=== PATIENT | male | born 1955 | race Caucasian/White ===

== ENCOUNTER 2016-12-03 11:21 | Observation (INO) | payer OTHER, BC ==
--- NOTE | 2016-12-03 11:25 | ER Document Report ---
ED Medical Screen (RME) - General Stated Complaint: STROKE LIKE SYMPTOMS Time seen by provider: 11:25 Mode of Arrival: Wheelchair Information source: Patient Notes: 61-year-old male tripped over a fence's morning and when he tried to get up he had slurred speech on the right side of his mouth unable to make words, and could not use his right arm leg. The symptoms lasted for 20 minutes and are now resolved. And it is now 11:25 AM so and sending for CT at this time he is in the 3 hour window. I have greeted and performed a rapid initial assessment of this patient. A comprehensive ED assessment, evaluation of the patient, analysis of test results , and completion of the medical decision making process will be contacted by additional ED providers.
--- NOTE | 2016-12-03 11:50 | ER Document Report ---
ED Neuro Symptoms/Deficit - General Stated Complaint: STROKE LIKE SYMPTOMS Mode of Arrival: Wheelchair Information source: Patient TRAVEL OUTSIDE OF THE [place] IN LAST 30 DAYS: No - HPI Patient complains to provider of: Difficulty standing, Difficulty walking, Facial Droop, Speech Impairment - DYSARTHRIA, DENIES APHASIA Onset: Just prior to arrival Awoke with symptoms: No Exact time of onset: 1045 Duration: Gone now - DURATION APPROX. 20 MIN. Quality of pain: No pain Severity: Moderate Context: denies: Insect bite, Tick bite, Falling, Head injury Loss of consciousness: No loss of consciousness Was STROKE ALERT Called: Yes Baseline Cognitive: Alert, oriented X 3 Baseline Gait: Walks w/o assistance Pre-existing weakness: No: Face, General, Hand, Lower extremity, Upper extremity Alert To: Name/Voice Patient Orientation: Person, Place, Time, Events New weakness: RUE, RLE, R facial Decreased ability to stand/walk: Cannot walk Impaired speech/swallowing: Difficult Vision problem/glaucoma: No Associated symptoms: None. denies: Dizzy, Headache, Nausea, Short of breath Similar symptoms previously: No Recently seen / treated by doctor: No Notes: Due to the fact that the patient's neurologic symptoms had completely resolved by the time of his evaluation in the emergency department, he is excluded from consideration for thrombolytic treatment. - Related Data Allergies/Adverse Reactions: Penicillins Allergy (Verified 12/03/16 12:06) Home Medications: Current Home Medications No Home Medications 12/03/16 [History] Past Medical History - General Information source: Patient - Social History Smoking Status: Former Smoker Cigarette use (# per day): No Chew tobacco use (# tins/day): No Frequency of alcohol use: Rare Drug Abuse: None Lives with: Family Family History: None Patient has suicidal ideation: No Patient has homicidal ideation: No - Past Medical History Cardiac Medical History: Reports: None Pulmonary Medical History: Reports: None EENT Medical History: Reports: None Neurological Medical History: Reports: None Endocrine Medical History: Reports: None Renal/ Medical History: Reports: None Malignancy Medical History: Reports None GI Medical History: Reports: None Musculoskeltal Medical History: Reports None Psychiatric Medical History: Reports: None Past Surgical History: Reports: Hx Orthopedic Surgery Review of Systems - Review of Systems Constitutional: No symptoms reported EENT: No symptoms reported Cardiovascular: No symptoms reported Respiratory: No symptoms reported Gastrointestinal: No symptoms reported Genitourinary: No symptoms reported Musculoskeletal: No symptoms reported Skin: No symptoms reported Neurological/Psychological: See HPI Physical Exam - Vital signs Interpretation: Hypertensive. No: Tachycardic, Tachypneic - General General appearance: Appears well, Alert In distress: None - HEENT Head: Normocephalic Eyes: Normal Conjunctiva: Normal Ears: Normal Nasal: Normal Mouth/Lips: Normal Mucous membranes: Normal Pharynx: Normal Neck: Normal. No: Carotid bruit - Respiratory Respiratory status: No respiratory distress Breath sounds: Normal - Cardiovascular Rhythm: Regular Heart sounds: Normal auscultation Murmur: No - Abdominal Inspection: Normal Distension: No distension Bowel sounds: Normal - Back Back: Normal - Extremities General upper extremity: Normal inspection General lower extremity: Normal inspection - Neurological Neuro grossly intact: Yes Cognition: Normal Orientation: AAOx4 - Psychological Associated symptoms: Normal affect, Normal mood - Skin Skin Temperature: Warm Skin Moisture: Dry Skin Color: Normal Skin Turgor: Elastic Course - Laboratory Result Diagrams: 12/03/16 11:58 12/03/16 11:58 - Diagnostic Test Radiology reviewed: Image reviewed, Reports reviewed - EKG Interpretation by Me EKG shows normal: Sinus rhythm, [place], Intervals, QRS Complexes. abnormal: ST-T Waves - ANT. T ABNLS, NS Rate: Normal Rhythm: NSR - Consults DR. PETERSON Time consulted: 12:42 Reason for consultation: 12/03/16 12:45 AGREES WITH OBSERVATION - TELEMETRY Consulted provider: will come to ER Discharge - Discharge Clinical Impression: TIA (transient ischemic attack) Qualifiers: Transient cerebral ischemia type: unspecified Qualified Code(s): G45.9 - Transient cerebral ischemic attack, unspecified Disposition: ADMITTED OBSERVATION Admitting Provider: Hospitalist Unit Admitted: Telemetry
[2016-12-03 12:16] LABS: ABSOLUTE BASOPHILS # (AUTO) 0.1 10^3/uL (0.0-0.2); ABSOLUTE EOSINOPHILS # (AUTO) 0.1 10^3/uL (0.0-0.6); ABSOLUTE LYMPHOCYTES (AUTO) 1.4 10^3/uL (0.5-4.7); ABSOLUTE MONOCYTES (AUTO) 0.5 10^3/uL (0.1-1.4); BASOPHILS % (AUTO) 1.2 % (0-2); EOSINOPHILS % (AUTO) 1.7 % (0-6); HEMATOCRIT 51.7 % (37.9-51.0); HEMOGLOBIN 16.6 g/dL (13.5-17.0); HGB HCT DIFFERENCE -1.9; LYMPHOCYTES % (AUTO) 19.8 % (13-45); MEAN CORPUSCULAR HEMOGLOBIN 30.8 pg (27.0-33.4); MEAN CORPUSCULAR HGB CONC 32.1 g/dL (32.0-36.0); MEAN CORPUSCULAR VOLUME 96 fl (80-97); MONOCYTES % (AUTO) 6.9 % (3-13); RED BLOOD COUNT 5.38 10^6/uL (4.35-5.55); SEGMENTED NEUTROPHILS % (AUTO) 70.4 % (42-78); WHITE BLOOD COUNT 7.1 10^3/uL (4.0-10.5)
[2016-12-03 12:20] LABS: PROTHROMBIN TIME 12.8 SEC (11.4-15.4)
[2016-12-03 12:21] LABS: PARTIAL THROMBOPLASTIN TIME 26.3 SEC (23.5-35.8)
[2016-12-03 12:32] LABS: ALANINE AMINOTRANSFERASE 52 U/L (21-72); ALBUMIN 3.5 g/dL (3.5-5.0); ALKALINE PHOSPHATASE 60 U/L (38-126); ANION GAP 8 (5-19); ASPARTATE AMINO TRANSFERASE 28 U/L (17-59); BILIRUBIN,TOTAL 0.5 mg/dL (0.2-1.3); BLOOD UREA NITROGEN 12 mg/dL (7-20); CALCIUM 8.9 mg/dL (8.4-10.2); CARBON DIOXIDE 34 mmol/L (22-30); CHLORIDE 102 mmol/L (98-107); CREATINE KINASE 62 U/L (55-170); CREATININE RESULT 0.71 mg/dL (0.52-1.25); GLUCOSE 101 mg/dL (75-110); POTASSIUM 4.3 mmol/L (3.6-5.0); SODIUM 143.6 mmol/L (137-145); TOTAL PROTEIN 6.1 g/dL (6.3-8.2)
[2016-12-03 12:42] LABS: CREATINE KINASE MB 2.06 ng/mL (<4.55); TROPONIN I 0.027 ng/mL
[2016-12-03] MEDS ORDERED: LISINOPRIL 10 MG TABLET PO ONE (12:46)
[2016-12-03] MEDS ORDERED: ASPIRIN 81 MG TABLET, CHEWABLE PO ONE (12:47)
[2016-12-03] MEDS ORDERED: NITROGLYCERIN 0.4 MG/TAB 25 TAB/BOTTLE SL PRN (13:36)
[2016-12-03] MEDS ORDERED: HYDRALAZINE HCL INJ/PF 20 MG/1 ML SDV IV PRN (13:57)
[2016-12-03] MEDS ORDERED: DOCUSATE SODIUM 100 MG CAPSULE PO PRN (14:01)
[2016-12-03] MEDS ORDERED: ONDANSETRON 4 MG TAB.RAPDIS PO PRN (14:01)
[2016-12-03] MEDS ORDERED: OXYCODONE-ACETAMINOPHEN 5-325 MG TABLET PO PRN (14:03)
[2016-12-03] MEDS ORDERED: ACETAMINOPHEN 325 MG TABLET PO PRN (14:03)
[2016-12-03 14:37] LABS: APPEARANCE,URINE CLEAR; BILIRUBIN,URINE NEGATIVE (NEGATIVE); GLUCOSE, URINE NEGATIVE (NEGATIVE); KETONES,URINE NEGATIVE (NEGATIVE); LEUKOCYTE ESTERASE,URINE NEGATIVE (NEGATIVE); NITRITE,URINE NEGATIVE (NEGATIVE); PROTEIN,URINE NEGATIVE (NEGATIVE); URINE SPECIFIC GRAVITY 1.015; UROBILINOGEN,URINE NEGATIVE mg/dL (<2.0)
--- NOTE | 2016-12-03 14:38 | HISTORY AND PHYSICAL E ---
History and Physical NAME: ROD PRATHER : 1955 AGE: 61Y ADMITTED: 12/03/2016 ROOM: ED21 CHIEF COMPLAINT: Weakness on the right side and slurred speech. HISTORY OF PRESENT ILLNESS: The patient is a pleasant 61-year-old male who does not have any past medical history of any problems except asthma. History of smoking; he smokes 1 pack a day. No hypertension or diabetes. No previous history of stroke. The patient was brought to the emergency room by his after he suddenly had weakness on the right side, on the right leg and right arm, and slurred speech. The patient does not remember how long it lasted. He also had a fall, but he does not remember he had the weakness and then he fell, or if he fell or had the weakness. He had high blood pressure. In the emergency room, blood pressure was checked; it was 180/113. When he arrived to the emergency room, his symptoms resolved. He also has a headache. He does not have any chest pain or difficulty breathing. He does not have any nausea or vomiting. No tinnitus. No vertigo. No fever. No chills. He has lower limb edema, but it is chronic. According to him, [facility] and he never had any high blood pressure. He was never told that he had any high blood pressure or diabetes. He had a CT scan, which showed a normal CT scan. EKG was normal. Cardiac enzymes were negative. REVIEW OF SYSTEMS: GENERAL: There is no fever. No chills. HEAD: He has a headache. No dizziness. EARS: No tinnitus. No vertigo. NOSE: No discharge from the nose. NECK: No difficulty swallowing. No pain. EYES: No redness or pain. No problems with the vision. CARDIOVASCULAR: No cough. No wheezing. No hemoptysis. No shortness of breath. RESPIRATORY: No cough. No chest pain. GASTROINTESTINAL: No nausea. No vomiting. No diarrhea. GENITOURINARY: No urgency. No frequency. No dysuria. No hematuria. ENDOCRINE: No polyuria, polyphagia, polydipsia. NEUROLOGIC: No seizures. PSYCHIATRIC: No depression. PAST MEDICAL HISTORY: Asthma. PAST SURGICAL HISTORY: None. MEDICATIONS: He is not taking any medications at home. ALLERGIES: He is allergic to PENICILLIN. SOCIAL HISTORY: The patient is . They have a son. He lives with his . 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 He has smoked 1 pack a day for 40 years. He used to be a heavy drinker, but he quit 20 years ago. No illicit drug use. FAMILY HISTORY: Congestive heart failure in his father. PHYSICAL EXAMINATION: VITAL SIGNS: His blood pressure is 171/109, saturation is 90% on 2 L, heart rate is 102, temperature is 98.4. GENERAL: The patient appears well, not in distress. HEENT: Head: Normocephalic, atraumatic. Eyes: Pupils round, reactive to light and accommodation bilaterally, conjunctivae clear, no icterus, extraocular movements intact. Mucous membranes are moist. Nose: No discharge from the nose. Ears: Tympanic membranes intact bilaterally, no discharge from the ears. NECK: Trachea is midline. No thyromegaly. RESPIRATORY: Inspection of chest: Symmetrical movement, no deformity. Lungs: Clear to auscultation bilaterally, no wheezing, no crackles, good air entry bilaterally. CARDIOVASCULAR: Regular rate and rhythm. No murmur. No gallop. He has +1 edema. ABDOMEN: Soft and nontender. No guarding. Bowel sounds are normal. Negative Hamlin's sign. RECTAL: Deferred. GENITOURINARY: Deferred. EXTREMITIES: There is +1 to +2 edema. No cyanosis. No clubbing. MUSCULOSKELETAL: No joint deformity. No swelling. VASCULAR: Normal peripheral pulses. NEUROLOGIC: Awake, alert to person, place, and time. Normal speech. Cranial nerves grossly intact. Strength is 5/5 in all extremities. Tactile sensation intact in all extremities. SKIN: No rash. PSYCHIATRIC: Normal affect. HEMATOLOGIC/LYMPHOCYTIC: No lymphadenopathy. No easy bruising. No ecchymosis. DIAGNOSTIC DATA: Labs: White blood count 7.1, hemoglobin 16, hematocrit 51. INR is 0.9. Sodium 143, potassium 4.3, carbon dioxide 34, creatinine 0.7. CT scan of the head was normal. Chest x-ray was unremarkable. EKG was normal. ER COURSE: The patient received aspirin 325 mg as well as he also got Lisinopril 10 mg x1 dose. ASSESSMENT AND PLAN: The patient is a 61-year-old male who has a past medical history of smoking. He does not have any past medical history of diabetes or hypertension. The patient came to the emergency room with a TIA/CVA symptoms as well as malignant hypertension. 1. TIA/CVA: The symptoms resolved. 2. Right-sided weakness: Resolved. 3. Malignant hypertension. 4. Morbid obesity. 5. Tobacco abuse. 6. History of alcohol abuse in the past. 7. Morbid obesity. 8. Lower lymphedema. PLAN: 1. The patient will be admitted to telemetry. 2. Will get MRI of the brain to rule out stroke, carotid ultrasound, echocardiogram, 3 sets of cardiac enzymes, fasting lipid profile, urine protein-creatinine ratio, urinalysis. 3. Medication srinivasan, the patient received Lisinopril in the emergency room. Blood pressure is still high. Will start him on Toprol XL 25 mg p.o. daily, hydralazine p.r.n. for a systolic more than 180, aspirin 325 mg p.o. daily. 4. Physical therapy evaluation, occupational therapy evaluation. 5. Processing Mgr consult. 6. DVT prophylaxis, GI prophylaxis. CODE STATUS: The patient is a FULL CODE. TIME SPENT: One hour. DICTATING PHYSICIAN: CARSON PETERSON M.D. [id number] PHY#: [id number] ID: [id number] JOB#: [id number] ACCT: [id number] cc:CARSON PETERSON M.D. > MTDD
--- NOTE | 2016-12-03 15:15 | EKG REPORT ---
SEVERITY:- ABNORMAL ECG - SINUS RHYTHM NONSPECIFIC T ABNORMALITIES, ANTERIOR LEADS : Confirmed by: Carlotta Klein MD 03-Dec-2016 15:14:32
[2016-12-03] MEDS ORDERED: LANSOPRAZOLE 30 MG TAB.RAP.DR PO ONE (16:00)
[2016-12-03] MEDS ORDERED: METOPROLOL SUCCINATE 25 MG TAB.SR.24H PO ONE (16:00)
--- NOTE | 2016-12-03 16:44 | XCELERA REPORT ---
[address] [address] Transthoracic Echocardiogram Report Name: ROD PRATHER Age: 61 yrs Gender: Male : 1955 Patient Status: Inpatient Patient Location: \S\[facility]\S\A Study Date: 12/03/2016 02:02 PM Height: 74 in Weight: 280 lb BSA: 2.5 m2 Procedure: A complete two-dimensional transthoracic echocardiogram was performed (2D, M-mode, spectral and color flow Doppler). The study was technically difficult with many images being suboptimal in quality. Reason For Study: CHF. TIA/CVA Ordering Physician: CARSON PETERSON Performed By: Sonny Alvarez Interpretation Summary The study was technically difficult with many images being suboptimal in quality. Left ventricular systolic function is borderline reduced. There is mild concentric left ventricular hypertrophy. The left ventricle is grossly normal size. Doppler measurements suggest pseudonormalized left ventricular relaxation, which is associated with grade II/IV or mild to moderate diastolic dysfunction Wall motion cannot be accurately commented on, but no definite regional wall motion abnormalities noted. The right ventricle appears to be hypertrophied The right ventricle is mildly dilated. The right ventricular systolic function is normal. The right atrium is mild to moderately dilated. The left atrium is moderately dilated. There is no mitral valve stenosis. There is a mild amount of mitral regurgitation There is no aortic valve stenosis No aortic regurgitation is present. There is a trace to mild amount of tricuspid regurgitation Right ventricular systolic pressure is estimated to be elevated at 40- 50mmHg. There is mild to moderate pulmonary hypertension by echo The aortic root is not well visualized. The inferior vena cava appeared normal and decreased > 50% with respiration (RAP 5-10 mmHg) There is no pericardial effusion. MMode/2D Measurements \T\ Calculations RVDd: 3.7 cm LVIDd: 6.0 cm FS: 20.1 % Ao root diam: 4.1 cm IVSd: 1.5 cm LVIDs: 4.8 cm EDV(Teich): 179.5 ml LVPWd: 1.4 cm ESV(Teich): 106.9 ml Ao root area: 13.3 cm2 EF(Teich): 40.5 % LA dimension: 5.0 cm Doppler Measurements \T\ Calculations MV E max lisa: MV P1/2t max lisa: Ao V2 max: LV V1 max P.2 cm/sec 64.7 cm/sec 107.0 cm/sec 2.5 mmHg MV A max lisa: MV P1/2t: 49.2 msec Ao max PG: LV V1 max: 95.8 cm/sec 4.6 mmHg 78.5 cm/sec MV E/A: 0.67 MVA(P1/2t): 4.5 cm2 MV dec slope: 384.8 cm/sec2 MV dec time: 0.17 sec PA V2 max: PI end-d lisa: TR max lias: RAP systole: 64.7 cm/sec 192.9 cm/sec 302.7 cm/sec 10.0 mmHg PA max PG: TR max P.7 mmHg 36.6 mmHg RVSP(TR): 46.6 mmHg Left Ventricle The left ventricle is grossly normal size. There is mild concentric left ventricular hypertrophy. Left ventricular systolic function is borderline reduced. Doppler measurements suggest pseudonormalized left ventricular relaxation, which is associated with grade II/IV or mild to moderate diastolic dysfunction. Wall motion cannot be accurately commented on, but no definite regional wall motion abnormalities noted. Right Ventricle The right ventricle is mildly dilated. The right ventricle appears to be hypertrophied. The right ventricular systolic function is normal. Atria The right atrium is mild to moderately dilated. The left atrium is moderately dilated. Interarterial septum not well visualized and not well dopplered. Cannot comment on ASD/PFO presence. Mitral Valve The mitral valve leaflets are sclerotic, but show no functional abnormalities. There is no mitral valve stenosis. There is a mild amount of mitral regurgitation. Aortic Valve The aortic valve is grossly normal. There is no aortic valve stenosis. No aortic regurgitation is present. Tricuspid Valve The tricuspid valve is not well visualized, but is grossly normal. There is no tricuspid stenosis. There is a trace to mild amount of tricuspid regurgitation. Right ventricular systolic pressure is estimated to be elevated at 40-50mmHg. There is mild to moderate pulmonary hypertension by echo. Pulmonic Valve The pulmonic valve is not well visualized. Great Vessels The aortic root is not well visualized. The inferior vena cava appeared normal and decreased > 50% with respiration (RAP 5-10 mmHg). Effusions There is no pericardial effusion. : CARSON PETERSON > Erin Garland
[2016-12-03 19:01] LABS: CHOLESTEROL 153.65 mg/dL (0-200); CREATINE KINASE 70 U/L (55-170); Direct HDL 38 mg/dL (>40); TRIGLYCERIDES 76 mg/dL (<150)
[2016-12-03 19:11] LABS: CREATINE KINASE MB 1.82 ng/mL (<4.55); TROPONIN I 0.034 ng/mL
[2016-12-03 19:12] LABS: DIRECT LDL 111 mg/dL (<100)
[2016-12-03] MEDS ORDERED: ATORVASTATIN CALCIUM 40 MG TABLET PO SCH (22:00)
[2016-12-03] MEDS ORDERED: ZOLPIDEM TARTRATE 5 MG TABLET PO SCH (22:00)
[2016-12-03 22:44] LABS: ARTERIAL BLOOD BASE EXCESS 9.4 mmol/L; ARTERIAL BLOOD O2 SATURATION 92.5 % (94-98)
[2016-12-04 00:58] LABS: CREATINE KINASE MB 1.59 ng/mL (<4.55); TROPONIN I 0.031 ng/mL
--- NOTE | 2016-12-04 07:38 | Progress Note ---
Provider Note Provider Note: 12/03/2016: Late evening, I contacted radiology department concerning timing of patient's scheduled CT angiogram of the chest. Radiology techs stated they had called the floor earlier in the evening, with nurse stating that patient had refused to have the study performed. At 11 PM, I called the patient's floor nurse and had her take her phone to the patient. I was involved in the care of another patient at that time and could not come to the patient's bedside. In layperson's terms, I discussed with patient the importance of proceeding with the CT angiogram of the chest, to rule out blood clots to his lung, which could be fatal if not treated in a timely fashion. I also offered to schedule a different test, the ventilation perfusion scan. Despite attempts at having the patient undergo above testing, he repeatedly refused any further testing, stating he was "tested out." Patient's conversation was lucid and appropriate. I notified patient we would be asking him to sign a refusal of care form. He stated that would be fine. Instructions related to this were given to his nurse.
[2016-12-04 07:55] LABS: CREATINE KINASE MB 1.57 ng/mL (<4.55); TROPONIN I 0.024 ng/mL
[2016-12-04] MEDS ORDERED: FUROSEMIDE 40 MG TABLET PO SCH (08:00)
--- NOTE | 2016-12-04 09:36 | EKG REPORT ---
SEVERITY:- ABNORMAL ECG - SINUS RHYTHM NONSPECIFIC T ABNORMALITIES, ANT-LAT LEADS BORDERLINE PROLONGED QT INTERVAL : Confirmed by: Carlotta Klein MD 04-Dec-2016 09:35:41
[2016-12-04] MEDS ORDERED: LANSOPRAZOLE 30 MG TAB.RAP.DR PO SCH (10:00)
[2016-12-04] MEDS ORDERED: METOPROLOL SUCCINATE 25 MG TAB.SR.24H PO SCH (10:00)
[2016-12-04] MEDS ORDERED: FUROSEMIDE 20 MG TABLET PO SCH (11:00)
[2016-12-04 12:06] VITALS: BP 163/80
--- NOTE | 2016-12-04 12:13 | DISCHARGE SUMMARY E ---
Discharge Summary NAME: ROD PRATHER : 1955 AGE: 61Y ADMITTED: 12/03/2016 DISCHARGED: 12/04/2016 ADMISSION DIAGNOSES: 1. TIA/CVA, symptoms resolved. 2. Right-side weakness, resolved. 3. Malignant hypertension. 4. Morbid obesity. 5. Tobacco abuse. 6. History of alcohol abuse in the past. 7. Lower edema. DISCHARGE DIAGNOSES: 1. TIA, symptoms resolved. 2. Right-side weakness, resolved. 3. Malignant hypertension, controlled. 4. Acute hypoxic respiratory failure, probably from obstructive sleep apnea. 5. Underlying COPD. 6. Tobacco abuse. 7. History of alcohol abuse in the past. 8. Acute on chronic diastolic congestive heart failure. 9. Morbid obesity. IMAGING: CT scan of the head was normal. Echocardiogram: Normal ejection fraction, but he had grade-2 diastolic heart failure, carotid artery minimal stenosis, coronary artery disease. A jugular ultrasound showed mild carotid artery disease. The patient refused chest CTA. He refused also MRI of the brain. LABORATORY: ABGs showed he had a pCO2 of 66. He had a respiratory acidosis. HOSPITAL COURSE: The patient is a pleasant 61-year-old male who has a past medical history of smoking and drinking in the past, but he was never diagnosed with hypertension or diabetes. He is morbidly obese. He came to the emergency room because of weakness in the right side of the body associated with high blood pressure at home at 180/106, and the patient came to the emergency room. His symptoms resolved in the ER; however, his blood pressure was very high, it was 182/113. He had a CT scan of the chest which was negative, and 3 sets of cardiac enzymes were negative. The patient was started on blood pressure medication and a statin. He was started on Toprol XL 25 mg daily, and the patient had edema in his lower extremities, and I started him on Lasix also. Cardiology was consulted, and the patient had an echocardiogram which showed grade-2 systolic failure but normal ejection fraction. He had a carotid ultrasound of the neck which showed mild coronary artery disease. He had a mild elevation of cholesterol LDL. He had ABG which showed pH was 7.[address] angiogram was ordered, but the patient refused, as well as also MRI of the brain patient refused because of claustrophobia. I offered him Ativan, but he still insisted not to do it. The patient was walked today, and he qualified for oxygen. He is hypoxic, his room air saturation dropped to 87, with walking to 84. He had some symptoms of obstructive sleep apnea, he is at least snoring, and he was evaluated by Dr. Garland and considering outpatient sleeping study. He will be discharged home today on aspirin and statin and Toprol, as well as oxygen and Lasix. He is not on any medication at home. The patient is stable to be discharged home today. PHYSICAL EXAMINATION: GENERAL: Upon discharge, the patient is lying in bed, comfortable, not in distress, obese. VITAL SIGNS: Blood pressure 127/78, heart rate 70, temperature 97.9, respiratory rate is 24, saturation is 87% room air at rest, when walking at 84%. On 2 liters, he is saturating walking 94% and at rest 96. HEAD: Normocephalic, atraumatic. Pupils are equal, round, reactive to light and accommodation bilaterally. Extraocular movements intact. Conjunctiva is clear. EARS: Tympanic membranes intact bilaterally. NOSE: No deformity. No discharge. NECK: Supple. No increased JVD. No thyromegaly. No lymphadenopathy. CARDIOVASCULAR: Normal S1, S2. Regular rate and rhythm. Edema +2. RESPIRATORY: No deformity. Lungs clear. No wheezing. ABDOMEN: Soft. Nontender. No organomegaly. Bowel sounds active. MUSCULOSKELETAL: No edema. NEUROLOGICAL: Awake, alert. SKIN: No rash. LABORATORY: White blood count 7.1. Sodium 143, potassium 4.3, creatinine 0.7. Cholesterol is elevated. DISPOSITION: Discharge the patient home. FOLLOWUP: Follow up with Dr. Garland in 1 to 2 weeks. Assigned to primary care physician and follow with him. Home oxygen at 2 liters per minute, 24 hours. DISCHARGE MEDICATIONS: 1. Metoprolol XL 25 mg p.o. daily. 2. Lasix 20 mg p.o. daily. 3. Lipitor 40 mg daily. 4. Aspirin 81 mg daily. DISCHARGE INSTRUCTIONS: I instructed the patient he will need workup for obstructive sleep apnea as an outpatient. The patient is instructed to lose weight and quit smoking. TIME SPENT: I spent more than 40 minutes. DICTATING PHYSICIAN: CARSON PETERSON M.D. [id number] PHY#: [id number] ID: [id number] JOB#: [id number] ACCT: [id number] cc:CARSON PETERSON M.D. >
--- NOTE | 2016-12-04 15:50 | PDOC CONSULTATION ---
Consultation Consult Date: 12/03/16 Attending physician:: ARUN YOUSSEF Consult reason:: CVA, Abnormal Echocardiogram History of Present Illness Admission Date/PCP: 12/03/16 13:20 Patient complains of: CVA History of Present Illness: ROD PRATHER is a 61 year old male who had tripped over a fence's morning and when he tried to get up he had slurred speech on the right side of his mouth unable to make words, and could not use his right arm leg. The symptoms lasted for 20 minutes and are now resolved. Patient subsequently had echocardiogram which was noted to be abnormal. I was therefore asked to evaluate patient. Patient also was noted to be hypoxemic. Patient was seen last night and recommended for him to undergo a CTA of the chest which he subsequently declined. Patient denied any prior history of heart problems but describes history of intermittent palpitations. Patient in the room, she admitted that patient has history of loud intermittent snoring, multiple nocturnal awakening, daytime sleepiness and tiredness. Patient denied any other significant history. He denied any prior history of myocardial infarction, angina, strokes, mini strokes, CHF etc. Past Medical History Cardiac Medical History: Reports: None Pulmonary Medical History: Reports: None EENT Medical History: Reports: None Neurological Medical History: Reports: None Endocrine Medical History: Reports: None Renal/ Medical History: Reports: None Malignancy Medical History: Reports: None GI Medical History: Reports: None Musculoskeltal Medical History: Reports: None Psychiatric Medical History: Reports: None Past Surgical History Past Surgical History: Reports: Orthopedic Surgery Social History Information Source: Patient Lives with: Family Smoking Status: Former Smoker Cigarettes Packs Per Day: 1 Number of Years Smokin Frequency of Alcohol Use: None Hx Recreational Drug Use: No Hx Prescription Drug Abuse: No Family History Family History: None Parental Family History Reviewed: Yes Children Family History Reviewed: Yes Sibling(s) Family History Reviewed.: Yes - Patient denies any family history of sudden cardiac or premature coronary artery disease in the immediate family members. Medication/Allergy Home Medications: Atorvastatin Calcium [Lipitor 40 mg Tablet] 20 mg PO QHS #30 tablet 12/04/16 Furosemide [Lasix 20 mg Tablet] 10 mg PO DAILY #30 tablet 12/04/16 Metoprolol Succinate [Toprol Xl 25 mg Tab.sr] 25 mg PO DAILY #30 tab.sr.24h Allergies/Adverse Reactions: Penicillins Allergy (Verified 12/03/16 12:06) Review of Systems Review of Systems: General: Patient denied any recent fevers or chills. Head: No recent chronic or acute headache. No recent head injury. No chronic or acute dizziness. Eyes: Negative for any recent eye pain, eye discharge, acute vision loss, diplopia. Ears: Negative for any recent ear pain, ear discharge. Nose: Negative for any recent sinus problems, nasal polyps or nasal bleed. Oral: Negative for recent oral pain, oral ulcerations, oral bleeding. Hematologic: Negative for recent abnormal bleeding, bruising, blood clot formation. Lymphatic: Negative for any recent lymphadenopathy, lymphatic malignancy, lymphedema. Endocrine: Negative for any recent polyuria, polydipsia, heat or cold intolerance. Cardiac: Negative for any recent chest pains, patient has shortness of breathon exertion but no PND, orthopnea, sustained syncope, near syncope. Does describe intermittent palpitations Respiratory: Negative for any recent episodes of asthma, wheezing, blood clots in the lungs, hemoptysis. Abdominal: Negative for any recent episode of abdominal pain, recent hematemesis melena, or recent changes in bowel habits. Urogenital: Negative for any recent hematuria, pyuria, renal colic. Musculoskeletal: Negative for any significant acute arthritis or mobility issues. INTERMEDIATE CARD TENDER: Negative for recent symptoms of strokes, mini strokes or seizure disorder, except for TIA/stroke type symptoms on presentation this time. Psychiatric: Negative for recent symptoms of major psychosis, depression or suicidal ideation. Skin: Negative for any significant recent ecchymosis, rash or pruritus.. Physical Exam Vital Signs: Temp Pulse Resp BP Pulse Ox 98.2 F 74 18 161/108 H 90 L 12/03/16 15:48 12/03/16 15:49 12/03/16 15:48 12/03/16 15:49 12/03/16 15:48 Intake & Output 12/02/16 12/03/16 12/04/16 06:59 06:59 06:59 Intake Total 3 Balance 3 Weight 132.6 kg Exam: GENERAL: well-nourished and in no acute distress. Alert and oriented x3 HEAD: Atraumatic, normocephalic. EYES: Pupils equal round and reactive to light, extraocular movements intact, sclera anicteric, conjunctiva are normal. ENT: TMs normal, nares patent, oropharynx clear without exudates. Moist mucous membranes. No oral ulcerations or bleeding gums noted NECK: supple without lymphadenopathy. Trachea is central. No cervical or axillary lymphadenopathy noted. Carotids are 2+, JVD WNL LUNGS: Respiration seems nonlabored, no significant accessory muscle action noted. Breath sounds clear to auscultation bilaterally and equal. No wheezes rales or rhonchi. No significant dullness noted on percussion. CHEST: Palpation of the chest wall shows no significant chest wall tenderness or abnormalities. 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 ABDOMEN: Soft, no significant tenderness appreciated, normoactive bowel sounds. No guarding, no rebound. No rigidity noted . No masses appreciated. EXTREMITIES: Pedal pulses are 1-2+, no calf tenderness noted. No clubbing or cyanosis.trace to 1+ pedal edema noted NEUROLOGICAL: Focused neurological exam showed no significant neurologic deficit. Normal speech, no focal weakness appreciated. PSYCH: Normal mood, normal affect. Judgment and insight within normal limits. SKIN: No significant ecchymosis, rash, ulcerations or signs of pruritus noted. MUSCULOSKELETAL EXAM: No significant joint swelling noted. Results Laboratory Results: 12/03/16 12/03/16 13:37 18:20 Triglycerides 76 Cholesterol 153.65 LDL Cholesterol Direct 111 H VLDL Cholesterol 15.0 HDL Cholesterol 38 L Urine Color YELLOW Urine Appearance CLEAR Urine pH 7.0 Ur Specific [place] 1.015 Urine Protein NEGATIVE Urine Glucose (UA) NEGATIVE Urine Ketones NEGATIVE Urine Blood NEGATIVE Urine Nitrite NEGATIVE Ur Leukocyte Esterase NEGATIVE Urine WBC (Auto) 0 Urine RBC (Auto) 0 12/03/16 12/03/16 18:20 18:20 Creatine Kinase 70 CK-MB (CK-2) 1.82 Troponin I 0.034 EKG Comments: Sinus rhythm with nonspecific T inversion V1 to V3. Impressions: Carotid Doppler Study 12/03/16 00:00 IMPRESSION: NO HEMODYNAMICALLY SIGNIFICANT STENOSIS. Chest X-Ray 12/03/16 11:24 IMPRESSION: Obstructive lung disease Minimal left basilar atelectasis Mild cardiomegaly Head CT 12/03/16 11:24 IMPRESSION: Limited study. No acute intracranial changes Assessment & Plan - Diagnosis (1) TIA (transient ischemic attack) Qualifiers: Transient cerebral ischemia type: unspecified Qualified Code(s): G45.9 - Transient cerebral ischemic attack, unspecified Is this a current diagnosis for this admission?: Yes (2) Abnormal electrocardiogram Is this a current diagnosis for this admission?: Yes (3) Abnormal echocardiogram Is this a current diagnosis for this admission?: Yes (4) Respiratory failure Qualifiers: Chronicity: chronic Respiratory failure complication: hypoxia and hypercapnia Qualified Code(s): J96.11 - Chronic respiratory failure with hypoxia; J96.12 - Chronic respiratory failure with hypercapnia Is this a current diagnosis for this admission?: Yes (5) Sleep disorder breathing Is this a current diagnosis for this admission?: Yes - Notes Notes: Transient ischemic attack: This is the diagnosis based on patient's presentation. Exact etiology not clear. Patient does give history of palpitations. Patient could have paroxysmal atrial fibrillation which is these rhythm abnormality to which this patient is felt to be most prone for because of history of obesity and possible underlying sleep apnea syndrome. Have recommended prolonged monitoring as an outpatient once patient is discharged. Abnormal electrocardiogram: Patient has T-wave inversion in anterior precordial lead. Patient without any chest pain. Agree with obtaining cardiac enzymes. Abnormal echocardiogram: This was the reason for consultation. Patient noted to have RV enlargement and pulmonary hypertension. LVEF is felt to be borderline reduced. These findings were discussed with the patient. He was recommended to undergo CTA of the chest which he subsequently declined. Respiratory failure with hypoxemia and hypercapnia: [place] to be chronic. Most likely related to obesity hypoventilation syndrome and possibly sleep apnea syndrome. Patient was advised to undergo CTA of the chest to rule out pulmonary embolism but patient declined. Patient may benefit from empiric anticoagulation for at least a month if not longer. Sleep disorder breathing:This is suspect that based on patient's symptoms of snoring, daytime fatigue and somnolence. Patient also has difficulty falling asleep and staying asleep. Patient has obesity and oropharyngeal exams suggest high probability of underlying sleep apnea syndrome. Have discussed this with the patient. Discussed increased risk of cardiovascular event rate, cerebrovascular accident, cardiac arrhythmias, uncontrolled hypertension etc. as being associated with untreated sleep apnea. Discussed that we'll be happy to schedule this as an outpatient. Patient has been recommended weight loss, sleep hygiene. Patient encouraged to report any further problems. - Time Time Spent: 30 to 50 Minutes - CODE STATUS was discussed, patient remains full code. Surrogate decision-maker patient's . Multiple medical problems were addressed.More than 50% of the time spent coordinating care, discussing management plans with involved caregivers. Management plans discussed with involved personnels. Medical decision making was of moderate complexity.
--- NOTE | 2016-12-04 15:53 | PDOC PROGRESS REPORT ---
Subjective Progress Note for:: 12/04/16 Subjective:: Patient feeling much better. He is demanding to be discharged. He declined to pursue any further evaluation as an inpatient. He had declined to pursue a CTA chest. Patient denied any specific complaints. Rhythm strip shows sinus rhythm Physical Exam Vital Signs: Temp Pulse Resp BP Pulse Ox 98.6 F 68 18 163/80 H 94 12/04/16 12:05 12/04/16 12:05 12/04/16 12:05 12/04/16 12:05 12/04/16 12:05 Intake & Output 12/03/16 12/04/16 12/05/16 06:59 06:59 06:59 Intake Total 159 Balance 159 Weight 132.6 kg Exam: GENERAL: well-nourished and in no acute distress. Alert and oriented x3 HEAD: Atraumatic, normocephalic. EYES: Pupils equal round and reactive to light, extraocular movements intact, sclera anicteric, conjunctiva are normal. ENT: TMs normal, nares patent, oropharynx clear without exudates. Moist mucous membranes. No oral ulcerations or bleeding gums noted NECK: supple without lymphadenopathy. Trachea is central. No cervical or axillary lymphadenopathy noted. Carotids are 2+, JVD WNL LUNGS: Respiration seems nonlabored, no significant accessory muscle action noted. Breath sounds clear to auscultation bilaterally and equal. No wheezes rales or rhonchi. No significant dullness noted on percussion. CHEST: Palpation of the chest wall shows no significant chest wall tenderness or abnormalities. 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 ABDOMEN: Soft, no significant tenderness appreciated, normoactive bowel sounds. No guarding, no rebound. No rigidity noted . No masses appreciated. EXTREMITIES: Pedal pulses are 1-2+, no calf tenderness noted. No clubbing or cyanosis.trace to 1+ pedal edema noted NEUROLOGICAL: Focused neurological exam showed no significant neurologic deficit. Normal speech, no focal weakness appreciated. PSYCH: Normal mood, normal affect. Judgment and insight within normal limits. SKIN: No significant ecchymosis, rash, ulcerations or signs of pruritus noted. MUSCULOSKELETAL EXAM: No significant joint swelling noted. Results Laboratory Results: 12/03/16 12/03/16 18:20 21:30 Carbonic Acid 2.00 H HCO3/H2CO3 Ratio 18:1 ABG pH 7.37 ABG pCO2 66.6 H ABG pO2 67.8 L ABG HCO3 37.8 H ABG O2 Saturation 92.5 L ABG Base Excess 9.4 FiO2 1L Triglycerides 76 Cholesterol 153.65 LDL Cholesterol Direct 111 H VLDL Cholesterol 15.0 HDL Cholesterol 38 L 12/03/16 12/03/16 12/04/16 18:20 18:20 00:22 Creatine Kinase 70 CK-MB (CK-2) 1.82 1.59 Troponin I 0.034 0.031 12/04/16 12/04/16 12/04/16 00:22 06:51 06:51 Creatine Kinase 64 62 CK-MB (CK-2) 1.57 Troponin I 0.024 Impressions: Carotid Doppler Study 12/03/16 00:00 IMPRESSION: NO HEMODYNAMICALLY SIGNIFICANT STENOSIS. Chest X-Ray 12/03/16 11:24 IMPRESSION: Obstructive lung disease Minimal left basilar atelectasis Mild cardiomegaly Head CT 12/03/16 11:24 IMPRESSION: Limited study. No acute intracranial changes Assessment & Plan - Diagnosis (1) TIA (transient ischemic attack) Qualifiers: Transient cerebral ischemia type: unspecified Qualified Code(s): G45.9 - Transient cerebral ischemic attack, unspecified Is this a current diagnosis for this admission?: Yes (2) Abnormal electrocardiogram Is this a current diagnosis for this admission?: Yes (3) Abnormal echocardiogram Is this a current diagnosis for this admission?: Yes (4) Respiratory failure Qualifiers: Chronicity: chronic Respiratory failure complication: hypoxia and hypercapnia Qualified Code(s): J96.11 - Chronic respiratory failure with hypoxia Is this a current diagnosis for this admission?: Yes (5) Sleep disorder breathing Is this a current diagnosis for this admission?: Yes - Notes Notes: As noted above, patient declined to undergo further evaluation and investigation as an inpatient. Patient was informed that he should undergo CTA of the chest to rule out any serious causes of both hypoxemia and abnormal echocardiogram. Patient however insist on being discharged. Discussed with hospitalist. It was felt that we may have to treat this patient on our best suspicion. Recommended close outpatient follow-up, oral anticoagulant, event monitoring as an outpatient, sleep study as an outpatient. Because of hypoxemia , the hospitalist arranging for oxygen therapy to be delivered. Overall prognosis is guarded. Discussed with hospitalist and patient's family members. - Time Time with patient: Greater than 35 minutes - CODE STATUS was discussed, patient remains full code. Surrogate decision-maker unchanged. Multiple medical problems were addressed.More than 50% of the time spent coordinating care, discussing management plans with involved caregivers. Management plans discussed with involved personnels. Medical decision making was of moderate to severe complexity.
== END 2016-12-04 12:50 | disposition home or self-care (01) ==
LOC: ER 11:21 → EH 13:20 → 3S 15:35
PROVIDERS: ADMIT Internal Medicine; ATTEND Internal Medicine
DX: G45.9 Transient cerebral ischemic attack, unspecified (principal); J96.01 Acute respiratory failure with hypoxia; Z72.0 Tobacco use; I10 Essential (primary) hypertension; J44.9 Chronic obstructive pulmonary disease, unspecified; I50.33 Acute on chronic diastolic (congestive) heart failure; F10.21 Alcohol dependence, in remission; E66.01 Morbid (severe) obesity due to excess calories; Z68.37 Body mass index [BMI] 37.0-37.9, adult
CPT/HCPCS: 93005 ×2; 99285; 36415; 82553 ×2; 82803; 82550 ×2; 85025; 85610; 85730; 80053; 81001; 84484 ×2; 80061; 93306; 93880; 71010; 70450; 93010 ×2; G0378 ×2

== ENCOUNTER 2017-04-25 16:27 | Inpatient (IN) | payer OTHER, BC ==
[2017-04-25 17:43] LABS: ABSOLUTE EOSINOPHILS # (AUTO) 0.3 10^3/uL (0.0-0.6); ABSOLUTE LYMPHOCYTES (AUTO) 1.5 10^3/uL (0.5-4.7); ABSOLUTE MONOCYTES (AUTO) 0.6 10^3/uL (0.1-1.4); ABSOLUTE NEUT (AUTO) 5.1 10^3/uL (1.7-8.2); BASOPHILS % (AUTO) 0.4 % (0-2); EOSINOPHILS % (AUTO) 3.4 % (0-6); HEMATOCRIT 54.8 % (37.9-51.0); HEMOGLOBIN 17.1 g/dL (13.5-17.0); HGB HCT DIFFERENCE -3.5; LYMPHOCYTES % (AUTO) 20.4 % (13-45); MEAN CORPUSCULAR HEMOGLOBIN 30.2 pg (27.0-33.4); MEAN CORPUSCULAR HGB CONC 31.1 g/dL (32.0-36.0); MEAN CORPUSCULAR VOLUME 97 fl (80-97); MONOCYTES % (AUTO) 8.2 % (3-13); RED BLOOD COUNT 5.65 10^6/uL (4.35-5.55); RED CELL DISTRIBUTION WIDTH 16.2 % (11.5-14.0); SEGMENTED NEUTROPHILS % (AUTO) 67.6 % (42-78); WHITE BLOOD COUNT 7.6 10^3/uL (4.0-10.5)
[2017-04-25 17:56] LABS: BLOOD UREA NITROGEN 17 mg/dL (7-20); CALCIUM 8.4 mg/dL (8.4-10.2); CHLORIDE 97 mmol/L (98-107); CREATININE RESULT 0.86 mg/dL (0.52-1.25); GLUCOSE 94 mg/dL (75-110); POTASSIUM 4.3 mmol/L (3.6-5.0)
--- NOTE | 2017-04-25 17:59 | RADIOLOGY REPORT (SQ) ---
EXAM DESCRIPTION: CHEST PA/LAT COMPLETED DATE/TIME: 04/25/2017 5:44 pm REASON FOR STUDY: 10, SOB COMPARISON: 12/03/2016 EXAM PARAMETERS: NUMBER OF VIEWS: two views TECHNIQUE: Digital Frontal and Lateral radiographic views of the chest acquired. RADIATION DOSE: NA LIMITATIONS: none FINDINGS: LUNGS AND PLEURA: The lung wills are hyperexpanded. There is mild perihilar and basilar airspace disease new or increased from prior study. No effusions. MEDIASTINUM AND HILAR STRUCTURES: No masses or contour abnormalities. HEART AND VASCULAR STRUCTURES: Stable in appearance. BONES: No acute findings. HARDWARE: None in the chest. OTHER: No other significant finding. IMPRESSION: Perihilar and basilar airspace disease. Changes in the lung bases is most consistent wi th atelectasis. Perihilar infiltrate could be related to a viral illness or congestion. TECHNICAL DOCUMENTATION: JOB ID: [id number] [employer]- All Rights Reserved
[2017-04-25 18:03] LABS: ANION GAP 9 (5-19)
[2017-04-25] MEDS ORDERED: METHYLPREDNISOLONE INJ 125 MG/2 ML SDV IV ONE (18:08)
[2017-04-25 18:11] LABS: TROPONIN I 0.065 ng/mL
[2017-04-25 18:12] LABS: CARBON DIOXIDE 40 mmol/L (22-30)
[2017-04-25] MEDS ORDERED: IPRATROPIUM/ALBUTEROL 0.5-2.5 MG/3 ML AMPUL NEB SCH (18:15)
[2017-04-25] MEDS ORDERED: ASPIRIN 325 MG TABLET PO ONE (18:15)
--- NOTE | 2017-04-25 18:15 | ER Document Report ---
ED Respiratory Problem - General Chief Complaint: Breathing Difficulty Stated Complaint: SHORTNESS OF BREATH Time Seen by Provider: 04/25/17 17:23 Information source: Patient Notes: Patient is a 61-year-old male who presents today from the [place] with some shortness of breath. He states shortness of breath for around the last 2 weeks with increased progression over the last 2 days. He denies any and all chest pain. He states some baseline swelling in the legs that has slightly increased. Patient had a stroke this past November and was only then started on Lasix, blood pressure medications, and cholesterol medications. Patient states he does have a history of asthma when he was a child. He recently quit smoking after a long smoking history. Does not endorse some increased orthopnea. Some coworkers today noticed him short of breath with some "blueness of the fingers". He denies any runny nose, congestion, coughing, or fevers. TRAVEL OUTSIDE OF THE [place] IN LAST 30 DAYS: No - HPI Patient complains to provider of: Short of breath Onset: Other - See above Duration: Continuous Quality of pain: No pain Severity: Moderate Pain Level: 0 Context: Other - See above Short of Breath: Moderate Cough: Nonproductive Sputum amount: None Associated symptoms: Other - See above Similar symptoms previously: Yes Recently seen / treated by doctor: No - Related Data Allergies/Adverse Reactions: Penicillins Allergy (Verified 12/03/16 12:06) Past Medical History - General Information source: Patient - Social History Smoking Status: Former Smoker Cigarette use (# per day): No Chew tobacco use (# tins/day): No Smoking Education Provided: No Frequency of alcohol use: None Drug Abuse: None Family History: None Renal/ Medical History: Denies: Hx Peritoneal Dialysis Past Surgical History: Reports: Hx Orthopedic Surgery Review of Systems - Review of Systems Constitutional: denies: Fever EENT: denies: Eye discharge, Nose discharge Cardiovascular: denies: Chest pain, Palpitations Respiratory: Short of breath. denies: Hurts to breathe, Hemoptysis Gastrointestinal: denies: Vomiting Genitourinary: denies: Dysuria Musculoskeletal: Leg swelling Skin: Other - no hives. denies: Rash Neurological/Psychological: Other - no slurred speech -: Yes All other systems reviewed and negative Physical Exam - Vital signs Vitals: Temp Pulse Resp BP Pulse Ox 98.7 F 70 20 134/77 H 80 L 04/25/17 16:51 04/25/17 16:51 04/25/17 16:51 04/25/17 16:51 04/25/17 16:51 Notes: Reviewed vital signs and nursing note as charted by RN. CONSTITUTIONAL: Alert and oriented and responds appropriately to questions. Well -appearing; well-nourished HEAD: Normocephalic; atraumatic NECK: Supple without meningismus; non-tender; no cervical lymphadenopathy, no masses CARD: Regular rate and rhythm; no murmurs, no clicks, no rubs, no gallops; symmetric distal pulses RESP: Normal chest excursion without splinting. Minimal tachypnea. Patient has some decreased breath sounds bilaterally with some minimal rales at the bases with a slight wheeze to the left upper posterior chest ABD/GI: Normal bowel sounds; non-distended; soft, non-tender BACK: The back appears normal and is non-tender to palpation, there is no CVA tenderness EXT: Normal ROM in all joints; non-tender to palpation; no cyanosis, no effusions, 2-3+ pitting edema bilateral feet and shins SKIN: Normal color for age and race; warm; dry; good turgor; capillary refill < 2 seconds; no acute lesions noted NEURO: Moves all extremities equally; Motor and sensory function intact PSYCH: The patient's mood and manner are appropriate. Grooming and personal hygiene are appropriate. Course - Re-evaluation Re-evalutation: I was able to review the patient out patient evaluation consistent with my history. The EKG at that facility showed a heart rate of 68, normal sinus rhythm, inverted T waves V2 through V5. Given the above history and physical examination, I will obtain a cardiac panel , BNP, x-ray of the chest, and reassess. I believe the risk of pulmonary embolism and aortic dissection to be unlikely at this time. I am concerned about possible congestive heart failure, asthma/COPD exacerbation, or myocardial infarction 04/25/17 18:13 X-ray of the chest as recorded. 04/25/17 18:47 Labs as recorded. Patient still denies any pain to the chest. BNP is elevated. X-ray of the chest shows a possible congestive heart failure picture/ possible pneumonia. Azithromycin and Rocephin has been provided. EKG shows a heart rate of 66, normal sinus rhythm, some right axis deviation, inverted T waves in leads V2 through V5. Her EKG from November 2016 shows inverted T waves V2 through V4 - Vital Signs Vital signs: Temp Pulse Resp BP Pulse Ox 98.7 F 70 20 134/77 H 80 L 04/25/17 16:51 04/25/17 16:51 04/25/17 16:51 04/25/17 16:51 04/25/17 16:51 - Laboratory Result Diagrams: 04/25/17 17:16 04/25/17 17:16 Laboratory results interpreted by me: 04/25/17 04/25/17 04/25/17 17:16 17:16 17:16 RBC 5.65 H Hgb 17.1 H Hct 54.8 H MCHC 31.1 L RDW 16.2 H Sodium 146.0 H Chloride 97 L Carbon Dioxide 40 H* NT-Pro-B Natriuret Pep 2270 H Discharge - Discharge Clinical Impression: Hypoxia, Shortness of breath, Leg edema Congestive heart failure Qualifiers: Congestive heart failure type: unspecified congestive heart failure type Congestive heart failure chronicity: acute on chronic Qualified Code(s): I50.9 - Heart failure, unspecified Condition: Fair Disposition: ADMITTED OBSERVATION Admitting Provider: Hospitalist Unit Admitted: Telemetry
[2017-04-25] MEDS ORDERED: FUROSEMIDE INJ/PF 40 MG/4 ML SDV IV ONE (18:46)
[2017-04-25] MEDS ORDERED: AZITHROMYCIN INJ 500 MG VIAL IV ONE (19:01)
[2017-04-25] MEDS ORDERED: CEFTRIAXONE RTU 1 GM/D5W 50 ML IV ONE (19:01)
[2017-04-25 20:08] LABS: ARTERIAL BLOOD BASE EXCESS 10.3 mmol/L; ARTERIAL BLOOD O2 SATURATION 91.8 % (94-98)
[2017-04-25 20:48] LABS: CREATINE KINASE MB 1.72 ng/mL (<4.55); TROPONIN I 0.063 ng/mL
[2017-04-25] MEDS ORDERED: ACETAMINOPHEN 325 MG TABLET PO PRN (20:51)
[2017-04-25] MEDS ORDERED: ENALAPRILAT DIHYDRATE INJ/PF 1.25 MG/1 ML SDV IV PRN (20:51)
[2017-04-25] MEDS ORDERED: MAG HYDROX/AL HYDROX/SIMETH SUSP 30 ML UDCUP PO PRN (20:51)
[2017-04-25] MEDS ORDERED: NITROGLYCERIN 5 MG (0.2 MG/HR) PATCH.TD24 TD ONE (21:15)
[2017-04-26] MEDS: HEPARIN SOD (PORCINE) 5,000 UNIT/ML 1 ML SYRINGE SUBCUT SCH ×4 (00:14→21:13)
[2017-04-26] MEDS: ATORVASTATIN CALCIUM 20 MG TABLET PO SCH ×2 (00:14→21:12)
[2017-04-26] MEDS: METOPROLOL TARTRATE 25 MG TABLET PO SCH ×3 (00:15→21:12)
--- NOTE | 2017-04-26 00:22 | PDOC H&P ---
History of Present Illness Admission Date/PCP: 04/25/17 20:51 Patient complains of: Shortness of breath History of Present Illness: ROD PRATHER is a 61 year old male with a past medical history of morbid obesity, hypertension, suspected obstructive sleep apnea and venous stasis who had been in his usual state of health until approximately 7 days ago noting excessive the dyspnea with exertion prompting to seek evaluation at the [facility] where he found to be with oxygen saturations in the mid 80s on room air and referred to the ER for evaluation. He is found awake and alert but short of breath requiring supplemental oxygen, a CBC reveals polycythemia and ABG reveals both hypoxia with a PO2 of 66 and a PCO2 of 70 and started on BiPAP. The patient denies medications reducing respiratory drive such as opiates or benzodiazepine or recent change in medication. Past Medical History Cardiac Medical History: Reports: Other - Bilateral lower extremity venous stasis Pulmonary Medical History: Reports: Sleep Apnea Past Surgical History Past Surgical History: Reports: Orthopedic Surgery Social History Information Source: Patient Lives with: Spouse/Significant other Smoking Status: Former Smoker Frequency of Alcohol Use: None Hx Recreational Drug Use: No Hx Prescription Drug Abuse: No - Advance Directive Resuscitation Status: Full Code Family History Family History: None, Hypertension Parental Family History Reviewed: Yes Children Family History Reviewed: Yes Sibling(s) Family History Reviewed.: Yes Medication/Allergy Home Medications: Aspirin [Aspirin 81 mg Chewable Tablet] 81 mg PO DAILY 04/25/17 Atorvastatin Calcium [Lipitor 20 mg Tablet] 20 mg PO QHS 04/25/17 Furosemide [Lasix] 10 mg PO DAILY 04/25/17 Metoprolol Succinate [Toprol Xl 25 mg Tab.sr] 25 mg PO DAILY 04/25/17 Allergies/Adverse Reactions: Penicillins Allergy (Verified 12/03/16 12:06) Review of Systems Constitutional: PRESENT: fatigue, weakness, weight gain. ABSENT: chills, fever( s), headache(s), weight loss Eyes: ABSENT: visual disturbances Ears: ABSENT: hearing changes Cardiovascular: PRESENT: dyspnea on exertion, edema, orthropnea. ABSENT: chest pain, palpitations Respiratory: PRESENT: dyspnea. ABSENT: cough, hemoptysis, sputum Gastrointestinal: ABSENT: abdominal pain, constipation, diarrhea, hematemesis, hematochezia, nausea, vomiting Genitourinary: ABSENT: dysuria, hematuria Musculoskeletal: ABSENT: joint swelling Integumentary: ABSENT: rash, wounds Neurological: ABSENT: abnormal gait, abnormal speech, confusion, dizziness, focal weakness, syncope Psychiatric: ABSENT: anxiety, depression, homidical ideation, suicidal ideation Endocrine: ABSENT: cold intolerance, heat intolerance, polydipsia, polyuria Hematologic/Lymphatic: ABSENT: easy bleeding, easy bruising Physical Exam Vital Signs: Temp Pulse Resp BP Pulse Ox 98.6 F 68 13 134/84 H 93 04/25/17 22:00 04/25/17 22:00 04/25/17 22:17 04/25/17 22:00 04/25/17 22:17 General appearance: PRESENT: cooperative, mild distress, morbidly obese, obese Head exam: PRESENT: atraumatic, normocephalic Eye exam: PRESENT: conjunctiva pink, EOMI, PERRLA. ABSENT: scleral icterus Ear exam: PRESENT: normal external ear exam Mouth exam: PRESENT: moist, tongue midline Neck exam: ABSENT: carotid bruit, JVD, lymphadenopathy, thyromegaly Respiratory exam: PRESENT: accessory muscle use, crackles, symmetrical, tachypnea Cardiovascular exam: PRESENT: gallop, +S1, +S2, systolic murmur Vascular exam: PRESENT: normal capillary refill GI/Abdominal exam: PRESENT: normal bowel sounds, soft. ABSENT: distended, guarding, mass, organolmegaly, rebound, tenderness Rectal exam: PRESENT: deferred Extremities exam: PRESENT: full ROM, +2 edema. ABSENT: calf tenderness, clubbing, pedal edema Neurological exam: PRESENT: alert, awake, oriented to person, oriented to place , oriented to time, oriented to situation, CN II-XII grossly intact. ABSENT: motor sensory deficit Psychiatric exam: PRESENT: appropriate affect, normal mood. ABSENT: homicidal ideation, suicidal ideation Skin exam: PRESENT: dry, intact, warm. ABSENT: cyanosis, rash Results Impressions: Chest X-Ray 04/25/17 17:24 IMPRESSION: Perihilar and basilar airspace disease. Changes in the lung bases is most consistent with atelectasis. Perihilar infiltrate could be related to a viral illness or congestion. Assessment & Plan - Diagnosis (1) Acute respiratory failure with hypoxia and hypercapnia Is this a current diagnosis for this admission?: YesPlan: Appears acute on chronic given compensation with bicarbonate 40 that said he clearly requires supplemental oxygen and BiPAP given his ABG results of a P CO2 of 70, PO2 of 66 and polycythemia with a hemoglobin >17. BiPAP initiated avoiding respiratory rate limiting medications and reevaluation of chemistry in the morning. (2) Polycythemia Is this a current diagnosis for this admission?: YesPlan: Secondary polycythemia secondary to obstructive sleep apnea and/or COPD supplemental oxygen initiated. Will consult discharge planning for oxygen and CPAP at home (3) Obstructive sleep apnea Is this a current diagnosis for this admission?: YesPlan: BiPAP initiated as a trial CPAP needs initiation (4) Obesity (BMI 30-39.9) Is this a current diagnosis for this admission?: YesPlan: Evaluate TSH for medical cause otherwise considered dietitian consult for obesity (5) Venous stasis Is this a current diagnosis for this admission?: YesPlan: Education for DANIEL stockings initiated (6) Congestive heart failure Qualifiers: Congestive heart failure type: unspecified congestive heart failure type Congestive heart failure chronicity: acute on chronic Qualified Code(s): I50.9 - Heart failure, unspecified Is this a current diagnosis for this admission?: YesPlan: Secondary to #1, avoid volume overload and hypoxia. BiPAP initiated with oxygen - Time Time Spent: 50 to 70 Minutes - Inpatient Certification Medical Necessity: Need Close Monitoring Due to Risk of Patient Decompensation
[2017-04-26 02:23] LABS: CREATINE KINASE MB 1.3 ng/mL (<4.55); TROPONIN I 0.057 ng/mL
[2017-04-26 08:11] LABS: ABSOLUTE LYMPHOCYTES (AUTO) 0.7 10^3/uL (0.5-4.7); ABSOLUTE MONOCYTES (AUTO) 0.1 10^3/uL (0.1-1.4); ABSOLUTE NEUT (AUTO) 5.3 10^3/uL (1.7-8.2); BASOPHILS % (AUTO) 0.4 % (0-2); HEMATOCRIT 52.4 % (37.9-51.0); HEMOGLOBIN 16.3 g/dL (13.5-17.0); HGB HCT DIFFERENCE -3.5; LYMPHOCYTES % (AUTO) 11.8 % (13-45); MEAN CORPUSCULAR HEMOGLOBIN 29.9 pg (27.0-33.4); MEAN CORPUSCULAR HGB CONC 31.1 g/dL (32.0-36.0); MEAN CORPUSCULAR VOLUME 96 fl (80-97); MONOCYTES % (AUTO) 2.2 % (3-13); RED BLOOD COUNT 5.44 10^6/uL (4.35-5.55); RED CELL DISTRIBUTION WIDTH 15.6 % (11.5-14.0); SEGMENTED NEUTROPHILS % (AUTO) 85.6 % (42-78); WHITE BLOOD COUNT 6.1 10^3/uL (4.0-10.5)
[2017-04-26 08:14] LABS: ANION GAP 6 (5-19); BLOOD UREA NITROGEN 17 mg/dL (7-20); CALCIUM 8.1 mg/dL (8.4-10.2); CARBON DIOXIDE 37 mmol/L (22-30); CHLORIDE 98 mmol/L (98-107); CREATINE KINASE 46 U/L (55-170); CREATININE RESULT 0.69 mg/dL (0.52-1.25); Direct HDL 44 mg/dL (>40); GLUCOSE 149 mg/dL (75-110); POTASSIUM 4.5 mmol/L (3.6-5.0); SODIUM 141.1 mmol/L (137-145); TRIGLYCERIDES 55 mg/dL (<150)
[2017-04-26 08:25] LABS: DIRECT LDL 83 mg/dL (<100)
[2017-04-26 08:26] LABS: CREATINE KINASE MB 1.2 ng/mL (<4.55); TROPONIN I 0.039 ng/mL
--- NOTE | 2017-04-26 08:38 | EKG REPORT ---
SEVERITY:- ABNORMAL ECG - SINUS RHYTHM BORDERLINE RIGHT AXIS DEVIATION ABNORMAL T, CONSIDER ISCHEMIA, ANT-LAT LEADS : Confirmed by: Carlotta Klein MD 26-Apr-2017 08:38:30
[2017-04-26] MEDS ORDERED: IPRATROPIUM/ALBUTEROL 0.5-2.5 MG/3 ML AMPUL NEB PRN (10:11)
--- NOTE | 2017-04-26 13:45 | Physician Advisory Note ---
Physician Advisor ProgressNote .: Pursuant to the plan for [facility], I have reviewed the medical record for this patient. Physician Advisor Statement: Please consider documentin. "Acute hypernatremia, suspect due to , resolved" 2. "Ac on chr ___ type CHF" (know you'll get this in once ECHO results are back ) Thanks! CK
[2017-04-26] MEDS: DOCUSATE SODIUM 100 MG CAPSULE PO SCH (13:51)
[2017-04-26] MEDS: ASPIRIN 81 MG TABLET, CHEWABLE PO SCH (13:52)
[2017-04-26] MEDS: FUROSEMIDE INJ/PF 40 MG/4 ML SDV IV SCH (13:52)
[2017-04-26] MEDS: POTASSIUM CHLORIDE 10 MEQ TABLET.SA PO SCH (13:52)
[2017-04-26] MEDS: NITROGLYCERIN 5 MG (0.2 MG/HR) PATCH.TD24 TD SCH (13:59)
--- NOTE | 2017-04-26 15:48 | PDOC PROGRESS REPORT ---
Subjective Progress Note for:: 04/26/17 Subjective:: Patient seen on morning rounds. He is presently resting in bed on BiPAP. He states he feels much improved from when he came in last night. He is much less dyspneic and no longer wheezing. He states he did diurese well IV Lasix he was given. He denies any chest pain, palpitations or dyspnea. He denies any nausea , vomiting or abdominal pain. He denies any myalgias or arthralgias. He verbalizes no other complaints at the present time. Physical Exam Vital Signs: Temp Pulse Resp BP Pulse Ox 98.0 F 66 20 109/61 92 04/26/17 08:49 04/26/17 08:49 04/26/17 08:49 04/26/17 08:49 04/26/17 08:49 Pulse Oximeter Nocturnal Start: 04/26/17 10: 09 Freq: RTQ4 Status: Active Document 04/26/17 11:14 [facility] (Rec: 04/26/17 11:15 [facility] [email or web address]) Nocturnal Pulse Oximetry Equipment Usage Equipment Standby Continuous SpO2 Machine # - Other This is for overnight nocturnal pulse oximetry study to qualify for home cpap unit . Intake & Output 04/25/17 04/26/17 04/27/17 06:59 06:59 06:59 Intake Total 50 Balance 50 Weight 142.5 kg General appearance: PRESENT: no acute distress, morbidly obese, well-developed, well-nourished Head exam: PRESENT: atraumatic, normocephalic Eye exam: PRESENT: conjunctiva pink, EOMI, PERRLA. ABSENT: scleral icterus Ear exam: PRESENT: bleeding Mouth exam: PRESENT: moist, tongue midline Neck exam: ABSENT: carotid bruit, JVD, lymphadenopathy, thyromegaly Respiratory exam: PRESENT: crackles - bilateral bases, symmetrical, unlabored, wheezes Cardiovascular exam: PRESENT: RRR, +S1, +S2 Pulses: PRESENT: normal dorsalis pedis pul Vascular exam: PRESENT: normal capillary refill GI/Abdominal exam: PRESENT: normal bowel sounds, soft. ABSENT: distended, guarding, mass, organolmegaly, rebound, tenderness Rectal exam: PRESENT: deferred Extremities exam: PRESENT: full ROM. ABSENT: calf tenderness, clubbing, pedal edema Neurological exam: PRESENT: alert, awake, oriented to person, oriented to place , oriented to time, oriented to situation, CN II-XII grossly intact. ABSENT: motor sensory deficit Psychiatric exam: PRESENT: appropriate affect, normal mood. ABSENT: homicidal ideation, suicidal ideation Skin exam: PRESENT: dry, intact, warm. ABSENT: cyanosis, rash Results Laboratory Results: 04/26/17 07:31 04/26/17 07:31 04/26/17 04/26/17 07:31 07:31 WBC 6.1 RBC 5.44 Hgb 16.3 Hct 52.4 H MCV 96 MCH 29.9 MCHC 31.1 L RDW 15.6 H Plt Count 140 L Seg Neutrophils % 85.6 H Lymphocytes % 11.8 L Monocytes % 2.2 L Eosinophils % 0.0 Basophils % 0.4 Absolute Neutrophils 5.3 Absolute Lymphocytes 0.7 Absolute Monocytes 0.1 Absolute Eosinophils 0.0 Absolute Basophils 0.0 Sodium 141.1 Potassium 4.5 Chloride 98 Carbon Dioxide 37 H Anion Gap 6 BUN 17 Creatinine 0.69 Est GFR ( Amer) > 60 Est GFR (Non-Af Amer) > 60 Glucose 149 H Calcium 8.1 L Triglycerides 55 Cholesterol 133.30 LDL Cholesterol Direct 83 VLDL Cholesterol 11.0 HDL Cholesterol 44 04/26/17 04/26/17 04/26/17 01:44 01:44 07:31 Creatine Kinase 55 46 L CK-MB (CK-2) 1.30 Troponin I 0.057 04/26/17 07:31 Creatine Kinase CK-MB (CK-2) 1.20 Troponin I 0.039 Impressions: Chest X-Ray 04/25/17 17:24 IMPRESSION: Perihilar and basilar airspace disease. Changes in the lung bases is most consistent with atelectasis. Perihilar infiltrate could be related to a viral illness or congestion. Assessment & Plan - Diagnosis (1) Acute respiratory failure with hypoxia and hypercapnia Is this a current diagnosis for this admission?: YesPlan: Patient improved overnight with BiPAP therapy, IV steroids and nebulized treatments. We will continue IV antibiotics. Incentive spirometry and flutter valve. Will obtain nocturnal pulse oximetry for possible CPAP postdischarge. (2) Acute exacerbation of asthma with allergic rhinitis Is this a current diagnosis for this admission?: YesPlan: Continue Flonase, IV steroids and Singulair. (3) Acute on chronic diastolic heart failure Is this a current diagnosis for this admission?: YesPlan: We will continue to diuresis daily with IV Lasix until fluid volume overload improves. (4) Leg edema Is this a current diagnosis for this admission?: YesPlan: IV diuretics, support hose and ambulation. - Time Time Spent with patient: 25-34 minutes Critical Time spent with patient: 15-24 minutes Medications reviewed and adjusted accordingly: Yes Anticipated discharge: Home
[2017-04-26] MEDS: IPRATROPIUM/ALBUTEROL 0.5-2.5 MG/3 ML AMPUL NEB SCH ×2 (16:52→23:43)
[2017-04-27] MEDS: HEPARIN SOD (PORCINE) 5,000 UNIT/ML 1 ML SYRINGE SUBCUT SCH ×3 (05:28→21:59)
[2017-04-27 07:22] LABS: URINE BARBITURATES SCREEN NEGATIVE; URINE METHADONE SCREEN NEGATIVE; URINE OPIATES LOW NEGATIVE; URINE PHENCYCLIDINE SCREEN NEGATIVE
[2017-04-27] MEDS: IPRATROPIUM/ALBUTEROL 0.5-2.5 MG/3 ML AMPUL NEB SCH ×3 (07:56→23:41)
--- NOTE | 2017-04-27 09:26 | XCELERA REPORT ---
[address] [address] Transthoracic Echocardiogram Report Name: ROD PRATHER Age: 61 yrs Gender: Male : 1955 Patient Status: Inpatient Patient Location: 5\S\534\S\A Study Date: 04/26/2017 09:15 AM Height: 75 in Weight: 317 lb BSA: 2.7 m2 Procedure: A complete two-dimensional transthoracic echocardiogram was performed (2D, M-mode, spectral and color flow Doppler). The study was technically difficult with many images being suboptimal in quality. Reason For Study: systolic murmur Ordering Physician: KYM AGUILERA Performed By: Sonny Alvarez Interpretation Summary The study was technically difficult with many images being suboptimal in quality. The Ejection Fraction estimate is 45-50% Left ventricular systolic function is mildly reduced. There is mild concentric left ventricular hypertrophy. The left ventricle is grossly normal size. LV diastolic function could not be adequately assessed. There is borderline global hypokinesis of the left ventricle. The right ventricle is mildly dilated. The right ventricular systolic function is mild to moderately reduced. The right ventricle appears to be hypertrophied The right atrium is moderately dilated. The left atrium is moderately dilated. There is no mitral valve stenosis. There is a trace amount of mitral regurgitation There is no aortic valve stenosis There is a trace amount of aortic regurgitation There is a trace to mild amount of tricuspid regurgitation There is moderate pulmonary hypertension by echo Right ventricular systolic pressure is estimated to be elevated at 40- 50mmHg. The aortic root is not well visualized but is probably normal size. The inferior vena cava appeared normal and decreased > 50% with respiration (RAP 5-10 mmHg) There is no pericardial effusion. MMode/2D Measurements \T\ Calculations RVDd: 3.9 cm LVIDd: 6.2 cm FS: 22.7 % Ao root diam: 4.0 cm IVSd: 1.3 cm LVIDs: 4.8 cm EDV(Teich): 191.7 ml LVPWd: 1.2 cm ESV(Teich): 105.9 ml Ao root area: 12.5 cm2 EF(Teich): 44.8 % LA dimension: 5.1 cm Doppler Measurements \T\ Calculations MV E max lisa: MV P1/2t max lisa: Ao V2 max: LV V1 max P.2 cm/sec 79.8 cm/sec 120.1 cm/sec 2.3 mmHg MV A max lisa: MV P1/2t: 69.8 msec Ao max PG: LV V1 max: 60.2 cm/sec 5.8 mmHg 76.6 cm/sec MV E/A: 1.3 MVA(P1/2t): 3.2 cm2 MV dec slope: 335.1 cm/sec2 PA V2 max: TR max lisa: RAP systole: 80.0 cm/sec 282.9 cm/sec 10.0 mmHg PA max PG: TR max P.5 mmHg 2.6 mmHg RVSP(TR): 42.5 mmHg Left Ventricle The left ventricle is grossly normal size. There is mild concentric left ventricular hypertrophy. Left ventricular systolic function is mildly reduced. The Ejection Fraction estimate is 45-50%. LV diastolic function could not be adequately assessed. There is borderline global hypokinesis of the left ventricle. Right Ventricle The right ventricle is mildly dilated. The right ventricle appears to be hypertrophied. The right ventricular systolic function is mild to moderately reduced. Atria The right atrium is moderately dilated. The left atrium is moderately dilated. Interarterial septum not well visualized and not well dopplered. Cannot comment on ASD/PFO presence. Mitral Valve The mitral valve is grossly normal. There is no mitral valve stenosis. There is a trace amount of mitral regurgitation. Aortic Valve The aortic valve is not well visualized secondary to technical limitations. There is no aortic valve stenosis. There is a trace amount of aortic regurgitation. Tricuspid Valve The tricuspid valve is not well visualized secondary to technical limitations. There is no tricuspid stenosis. There is a trace to mild amount of tricuspid regurgitation. There is moderate pulmonary hypertension by echo. Right ventricular systolic pressure is estimated to be elevated at 40-50mmHg. Pulmonic Valve The pulmonic valve is not well visualized. Great Vessels The aortic root is not well visualized but is probably normal size. The inferior vena cava appeared normal and decreased > 50% with respiration (RAP 5-10 mmHg). Effusions There is no pericardial effusion. : KYM AGUILERA > Erin Garland
[2017-04-27] MEDS: NITROGLYCERIN 5 MG (0.2 MG/HR) PATCH.TD24 TD SCH (10:48)
[2017-04-27] MEDS: DOCUSATE SODIUM 100 MG CAPSULE PO SCH (10:59)
[2017-04-27] MEDS: FUROSEMIDE INJ/PF 40 MG/4 ML SDV IV SCH (10:59)
[2017-04-27] MEDS: POTASSIUM CHLORIDE 10 MEQ TABLET.SA PO SCH (10:59)
[2017-04-27] MEDS: ASPIRIN 81 MG TABLET, CHEWABLE PO SCH (10:59)
[2017-04-27] MEDS: METOPROLOL TARTRATE 25 MG TABLET PO SCH (11:05)
[2017-04-27] MEDS: METOPROLOL SUCCINATE 25 MG TAB.SR.24H PO SCH ×2 (11:05→11:48)
--- NOTE | 2017-04-27 13:07 | PDOC PROGRESS REPORT ---
Subjective Progress Note for:: 04/27/17 Subjective:: Patient seen on morning rounds. He is presently resting in bed on BiPAP. He states his breathing is continuing to improve since admission. He is much less dyspneic and no longer wheezing. He states he did diurese well IV Lasix he was given. He denies any chest pain, palpitations or dyspnea. He denies any nausea , vomiting or abdominal pain. He denies any myalgias or arthralgias. He verbalizes no other complaints at the present time. Physical Exam Vital Signs: Temp Pulse Resp BP Pulse Ox 97.8 F 64 20 94/44 L 84 L 04/27/17 10:49 04/27/17 10:49 04/27/17 10:49 04/27/17 10:49 04/27/17 10:49 Pulse Oximeter Nocturnal Start: 04/26/17 10: 09 Freq: RTQ4 Status: Complete Document 04/27/17 07:56 [facility] (Rec: 04/27/17 08:00 [facility] [email or web address]) Nocturnal Pulse Oximetry Equipment Usage Equipment Discontinued Continuous SpO2 Machine # na Intake & Output 04/26/17 04/27/17 04/28/17 06:59 06:59 06:59 Intake Total 50 1244 Output Total 550 Balance 50 694 Weight 142.5 kg 144.5 kg General appearance: PRESENT: no acute distress, morbidly obese, well-developed, well-nourished Head exam: PRESENT: atraumatic, normocephalic Eye exam: PRESENT: conjunctiva pink, EOMI, PERRLA. ABSENT: scleral icterus Ear exam: PRESENT: normal external ear exam Mouth exam: PRESENT: moist, tongue midline Neck exam: ABSENT: carotid bruit, JVD, lymphadenopathy, thyromegaly Respiratory exam: PRESENT: clear to auscultation adam. ABSENT: rales, rhonchi, wheezes Cardiovascular exam: PRESENT: RRR. ABSENT: diastolic murmur, rubs, systolic murmur Pulses: PRESENT: normal dorsalis pedis pul Vascular exam: PRESENT: normal capillary refill GI/Abdominal exam: PRESENT: normal bowel sounds, soft. ABSENT: distended, guarding, mass, organolmegaly, rebound, tenderness Rectal exam: PRESENT: deferred Extremities exam: PRESENT: full ROM, +1 edema - bilateral lower extremities. ABSENT: calf tenderness, clubbing, pedal edema Musculoskeletal exam: PRESENT: ambulatory, full ROM, normal inspection Neurological exam: PRESENT: alert, awake, oriented to person, oriented to place , oriented to time, oriented to situation, CN II-XII grossly intact. ABSENT: motor sensory deficit Psychiatric exam: PRESENT: appropriate affect, normal mood. ABSENT: homicidal ideation, suicidal ideation Skin exam: PRESENT: dry, intact, warm. ABSENT: cyanosis, rash Results Laboratory Results: 04/26/17 07:31 04/26/17 07:31 04/26/17 04/26/17 04/26/17 01:44 01:44 07:31 Creatine Kinase 55 46 L CK-MB (CK-2) 1.30 Troponin I 0.057 04/26/17 07:31 Creatine Kinase CK-MB (CK-2) 1.20 Troponin I 0.039 Impressions: Chest X-Ray 04/25/17 17:24 IMPRESSION: Perihilar and basilar airspace disease. Changes in the lung bases is most consistent with atelectasis. Perihilar infiltrate could be related to a viral illness or congestion. Assessment & Plan - Diagnosis (1) Acute respiratory failure with hypoxia and hypercapnia Is this a current diagnosis for this admission?: YesPlan: Patient improved overnight with BiPAP therapy, IV steroids and nebulized treatments. We will continue IV antibiotics. Incentive spirometry and flutter valve. Will obtain nocturnal pulse oximetry for possible CPAP postdischarge. (2) Acute on chronic diastolic heart failure Is this a current diagnosis for this admission?: YesPlan: We will continue to diuresis daily with IV Lasix until fluid volume overload improves. (3) Leg edema Is this a current diagnosis for this admission?: YesPlan: IV diuretics, support hose and ambulation. (4) Obesity (BMI 30-39.9) Is this a current diagnosis for this admission?: YesPlan: Counseled (5) Obstructive sleep apnea Is this a current diagnosis for this admission?: YesPlan: Patient will need CPAP at discharge - Time Time Spent with patient: 25-34 minutes Anticipated discharge: Home with Homehealth - Inpatient Certification Based on my medical assessment, after consideration of the patient's comorbidities, presenting symptoms, or acuity I expect that the services needed warrant INPATIENT care.: Yes Medical Necessity: Significant Comorbidiites Make Outpatient Treatment Too Risky , Need Close Monitoring Due to Risk of Patient Decompensation
[2017-04-27] MEDS ORDERED: MAG HYDROX/AL HYDROX/SIMETH SUSP 30 ML UDCUP PO PRN (13:37)
[2017-04-27] MEDS ORDERED: ACETAMINOPHEN 325 MG TABLET PO PRN (13:38)
[2017-04-27] MEDS ORDERED: ENALAPRILAT DIHYDRATE INJ/PF 1.25 MG/1 ML SDV IV PRN (13:39)
[2017-04-27] MEDS: ATORVASTATIN CALCIUM 20 MG TABLET PO SCH (21:58)
[2017-04-28] MEDS: HEPARIN SOD (PORCINE) 5,000 UNIT/ML 1 ML SYRINGE SUBCUT SCH ×3 (06:43→21:29)
[2017-04-28] MEDS: IPRATROPIUM/ALBUTEROL 0.5-2.5 MG/3 ML AMPUL NEB SCH ×3 (08:54→23:57)
[2017-04-28] MEDS: DOCUSATE SODIUM 100 MG CAPSULE PO SCH (09:33)
[2017-04-28] MEDS: ASPIRIN 81 MG TABLET, CHEWABLE PO SCH (09:33)
[2017-04-28] MEDS: POTASSIUM CHLORIDE 10 MEQ TABLET.SA PO SCH (09:34)
[2017-04-28] MEDS: FUROSEMIDE INJ/PF 40 MG/4 ML SDV IV SCH ×2 (09:34→17:09)
[2017-04-28] MEDS ORDERED: BUDESONIDE/FORMOTEROL 160-4.5 MCG 60 PUFF/6 GM MDI IH ONE (10:00)
--- NOTE | 2017-04-28 10:18 | RADIOLOGY REPORT (SQ) ---
EXAM DESCRIPTION: CHEST SINGLE VIEW COMPLETED DATE/TIME: 04/28/2017 10:08 am REASON FOR STUDY: Continued hypoxemia COMPARISON: 04/25/2017 EXAM PARAMETERS: NUMBER OF VIEWS: One view. TECHNIQUE: Single frontal radiographic view of the chest acquired. RADIATION DOSE: NA LIMITATIONS: None. FINDINGS: LUNGS AND PLEURA: There is ill-defined increased density in the right lung base which coul d represent atelectatic changes or basilar infiltrate. Predominately linear densities are identified in the left lung base most consistent with atelectatic changes although I cannot exclude a minimal i nfiltrate. There is some minimal blunting of the costophrenic angles which I cannot exclude is tiny pleural effusions. MEDIASTINUM AND HILAR STRUCTURES: No masses. Contour normal. HEART AND VASCULAR STRUCTURES: The configuration of the heart mediastinal structures is unchanged. BONES: No acute findings. HARDWARE: None in the chest. OTHER: No other significant finding. IMPRESSION: Bibasilar densities as noted above. TECHNICAL DOCUMENTATION: JOB ID: [id number]
[2017-04-28] MEDS: TIOTROPIUM BROMIDE DPI 5 CAP/KIT (18 MCG/CAP) IH SCH (10:49)
[2017-04-28 11:35] LABS: ARTERIAL BLOOD BASE EXCESS 10.5 mmol/L; ARTERIAL BLOOD O2 SATURATION 93.5 % (94-98)
--- NOTE | 2017-04-28 14:43 | PDOC CONSULTATION ---
Consultation Consult Date: 04/28/17 Attending physician:: FAVIAN MARQUEZ Consult reason:: acute/chronic resp failure History of Present Illness Admission Date/PCP: 04/25/17 20:51 History of Present Illness: ROD PRATHER is a 61 year old male with a past medical history of morbid obesity, hypertension, suspected obstructive sleep apnea and venous stasis who had been in his usual state of health until approximately 7 days ago noting excessive the dyspnea with exertion prompting to seek evaluation at the [place] [facility] where he found to be with oxygen saturations in the mid 80s on room air and referred to the ER for evaluation. He is found awake and alert but short of breath requiring supplemental oxygen, a CBC reveals polycythemia and ABG reveals both hypoxia with a PO2 of 66 and a PCO2 of 70 and started on BiPAP. The patient denies medications reducing respiratory drive such as opiates or benzodiazepine or recent change in medication. He denies frequent cough or hemoptysis his PPD is negative but the dates unknown. He has no history of chronic lung disease as a child or adolescent. 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 Past Medical History Cardiac Medical History: Reports: Other - Bilateral lower extremity venous stasis Pulmonary Medical History: Reports: Sleep Apnea Past Surgical History Past Surgical History: Reports: Orthopedic Surgery Social History Information Source: Patient, [facility] Records Lives with: Spouse/Significant other Smoking Status: Former Smoker Cigarettes Packs Per Day: 2 Number of Years Smokin Passive smoke exposure as: Both Frequency of Alcohol Use: None Hx Recreational Drug Use: No Hx Prescription Drug Abuse: No Do you have pets?: Yes Have you had any respiratory illnesses as a child?: No Have you been exposed to any sick contacts recently?: No Have you had any recent respiratory illnesses?: No Have you travelled outside of [place] in the past 12 months?: No - Advance Directive Resuscitation Status: Full Code Family History Family History: None, Hypertension Parental Family History Reviewed: Yes Children Family History Reviewed: Yes Sibling(s) Family History Reviewed.: Yes Medication/Allergy Home Medications: Aspirin [Aspirin 81 mg Chewable Tablet] 81 mg PO DAILY 04/25/17 Atorvastatin Calcium [Lipitor 20 mg Tablet] 20 mg PO QHS 04/25/17 Furosemide [Lasix] 40 mg PO DAILY 04/25/17 Metoprolol Succinate [Toprol Xl 25 mg Tab.sr] 25 mg PO DAILY 04/25/17 Allergies/Adverse Reactions: Penicillins Allergy (Verified 12/03/16 12:06) Physical Exam Vital Signs: Temp Pulse Resp BP Pulse Ox 97.4 F 62 20 92/60 L 96 04/28/17 07:45 04/28/17 07:45 04/28/17 07:45 04/28/17 07:45 04/28/17 07:45 Pulse Oximeter Nocturnal Start: 04/26/17 10: 09 Freq: RTQ4 Status: Complete Document 04/27/17 07:56 [facility] (Rec: 04/27/17 08:00 [facility] [email or web address]) Nocturnal Pulse Oximetry Equipment Usage Equipment Discontinued Continuous SpO2 Machine # na Intake & Output 04/27/17 04/28/17 04/29/17 06:59 06:59 06:59 Intake Total 1244 2870 Output Total 550 1600 Balance 694 1270 Weight 144.5 kg 145.3 kg General appearance: PRESENT: no acute distress, cooperative, disheveled, morbidly obese, well-developed Head exam: PRESENT: atraumatic, normocephalic Eye exam: PRESENT: conjunctiva pale, EOMI Mouth exam: PRESENT: dry mucosa, neck supple, tongue midline Teeth exam: PRESENT: poor dentation Neck exam: ABSENT: carotid bruit, JVD, lymphadenopathy, thyromegaly Respiratory exam: PRESENT: decreased breath sounds, prolonged expiratory phas, rales - Right base greater than left, rhonchi, unlabored Cardiovascular exam: PRESENT: RRR, +S1, +S2 Pulses: PRESENT: normal radial pulses GI/Abdominal exam: PRESENT: normal bowel sounds, soft. ABSENT: distended, guarding, mass, organolmegaly, rebound, tenderness Rectal exam: PRESENT: deferred Extremities exam: PRESENT: +2 edema Neurological exam: PRESENT: alert, awake Psychiatric exam: PRESENT: normal mood Skin exam: PRESENT: dry, warm Results Laboratory Results: 04/26/17 07:31 04/26/17 07:31 04/26/17 04/26/17 04/26/17 01:44 01:44 07:31 Creatine Kinase 55 46 L CK-MB (CK-2) 1.30 Troponin I 0.057 04/26/17 07:31 Creatine Kinase CK-MB (CK-2) 1.20 Troponin I 0.039 Impressions: Chest X-Ray 04/25/17 17:24 IMPRESSION: Perihilar and basilar airspace disease. Changes in the lung bases is most consistent with atelectasis. Perihilar infiltrate could be related to a viral illness or congestion. Assessment & Plan - Diagnosis (1) Acute respiratory failure with hypoxia and hypercapnia Is this a current diagnosis for this admission?: YesPlan: BiPAP (2) Congestive heart failure Qualifiers: Congestive heart failure type: unspecified congestive heart failure type Congestive heart failure chronicity: acute on chronic Qualified Code(s): I50.9 - Heart failure, unspecified Is this a current diagnosis for this admission?: Yes (3) Obstructive sleep apnea Is this a current diagnosis for this admission?: YesPlan: We will need nocturnal polysomnogram scheduled at time of discharge (4) Polycythemia Is this a current diagnosis for this admission?: YesPlan: Secondary to chronic hypoxemia (5) TIA (transient ischemic attack) Qualifiers: Transient cerebral ischemia type: unspecified Qualified Code(s): G45.9 - Transient cerebral ischemic attack, unspecified Is this a current diagnosis for this admission?: Yes
--- NOTE | 2017-04-28 15:09 | PDOC PROGRESS REPORT ---
Subjective Progress Note for:: 04/28/17 Subjective:: Patient seen on morning rounds. He is presently resting in bed on BiPAP. He states his breathing is continuing to improve since admission. He is much less dyspneic and is having intermittent wheezing. He states he has been diuresing well with IV Lasix he was given. He denies any chest pain, palpitations or dyspnea. He denies any nausea, vomiting or abdominal pain. He denies any myalgias or arthralgias. He verbalizes no other complaints at the present time. Physical Exam Vital Signs: Temp Pulse Resp BP Pulse Ox 98.1 F 63 22 H 118/66 93 04/28/17 11:28 04/28/17 14:00 04/28/17 11:28 04/28/17 11:28 04/28/17 11:28 Pulse Oximeter Nocturnal Start: 04/26/17 10: 09 Freq: RTQ4 Status: Complete Document 04/27/17 07:56 [facility] (Rec: 04/27/17 08:00 [facility] [email or web address]) Nocturnal Pulse Oximetry Equipment Usage Equipment Discontinued Continuous SpO2 Machine # na Intake & Output 04/27/17 04/28/17 04/29/17 06:59 06:59 06:59 Intake Total 1244 2870 Output Total 550 1600 Balance 694 1270 Weight 144.5 kg 145.3 kg General appearance: PRESENT: no acute distress, well-developed, well-nourished Head exam: PRESENT: atraumatic, normocephalic Eye exam: PRESENT: conjunctiva pink, EOMI, PERRLA. ABSENT: scleral icterus Ear exam: PRESENT: normal external ear exam Mouth exam: PRESENT: moist, tongue midline Neck exam: ABSENT: carotid bruit, JVD, lymphadenopathy, thyromegaly Respiratory exam: PRESENT: clear to auscultation adam. ABSENT: rales, rhonchi, wheezes Cardiovascular exam: PRESENT: RRR. ABSENT: diastolic murmur, rubs, systolic murmur Pulses: PRESENT: normal dorsalis pedis pul Vascular exam: PRESENT: normal capillary refill GI/Abdominal exam: PRESENT: normal bowel sounds, soft. ABSENT: distended, guarding, mass, organolmegaly, rebound, tenderness Rectal exam: PRESENT: deferred Extremities exam: PRESENT: full ROM. ABSENT: calf tenderness, clubbing, pedal edema Neurological exam: PRESENT: alert, awake, oriented to person, oriented to place , oriented to time, oriented to situation, CN II-XII grossly intact. ABSENT: motor sensory deficit Psychiatric exam: PRESENT: appropriate affect, normal mood. ABSENT: homicidal ideation, suicidal ideation Skin exam: PRESENT: dry, intact, warm. ABSENT: cyanosis, rash Results Laboratory Results: 04/26/17 07:31 04/26/17 07:31 04/28/17 11:20 Carbonic Acid 2.02 H HCO3/H2CO3 Ratio 19:1 ABG pH 7.38 ABG pCO2 67.2 H ABG pO2 71.3 L ABG HCO3 39.0 H ABG O2 Saturation 93.5 L ABG Base Excess 10.5 FiO2 40% 04/26/17 04/26/17 04/26/17 01:44 01:44 07:31 Creatine Kinase 55 46 L CK-MB (CK-2) 1.30 Troponin I 0.057 04/26/17 07:31 Creatine Kinase CK-MB (CK-2) 1.20 Troponin I 0.039 Impressions: Chest X-Ray 04/28/17 00:00 IMPRESSION: Bibasilar densities as noted above. Assessment & Plan - Diagnosis (1) Acute respiratory failure with hypoxia and hypercapnia Is this a current diagnosis for this admission?: YesPlan: Patient improved overnight with BiPAP therapy, IV steroids and nebulized treatments. We will continue IV antibiotics. Incentive spirometry and flutter valve. Will obtain nocturnal pulse oximetry for possible CPAP postdischarge. (2) Acute on chronic diastolic heart failure Is this a current diagnosis for this admission?: YesPlan: We will continue to diuresis daily with IV Lasix until fluid volume overload improves. Will add second dose in the pm for today due to continued lower extremity edema (3) Leg edema Is this a current diagnosis for this admission?: YesPlan: IV diuretics to bid, support hose and ambulation. (4) Obesity (BMI 30-39.9) Is this a current diagnosis for this admission?: YesPlan: Counseled (5) Obstructive sleep apnea Is this a current diagnosis for this admission?: YesPlan: Patient will need CPAP at discharge (6) Polycythemia Is this a current diagnosis for this admission?: YesPlan: Secondary to tobacco abuse, and chronic hypoxemia - Time Time Spent with patient: 25-34 minutes Critical Time spent with patient: 15-24 minutes Smoking Cessation Education: 3 to 10 minutes Medications reviewed and adjusted accordingly: Yes Anticipated discharge: Home with Homehealth
[2017-04-28] MEDS ORDERED: FUROSEMIDE INJ/PF 20 MG/2 ML SDV IV SCH ×2 (17:00)
[2017-04-28] MEDS: ATORVASTATIN CALCIUM 20 MG TABLET PO SCH (21:29)
[2017-04-29] MEDS: HEPARIN SOD (PORCINE) 5,000 UNIT/ML 1 ML SYRINGE SUBCUT SCH ×3 (05:38→21:10)
[2017-04-29] MEDS: IPRATROPIUM/ALBUTEROL 0.5-2.5 MG/3 ML AMPUL NEB SCH ×3 (09:03→23:04)
[2017-04-29] MEDS: ASPIRIN 81 MG TABLET, CHEWABLE PO SCH (09:34)
[2017-04-29] MEDS: METOPROLOL SUCCINATE 25 MG TAB.SR.24H PO SCH (09:34)
[2017-04-29] MEDS: POTASSIUM CHLORIDE 10 MEQ TABLET.SA PO SCH (09:34)
[2017-04-29] MEDS: DOCUSATE SODIUM 100 MG CAPSULE PO SCH (09:35)
[2017-04-29] MEDS: TIOTROPIUM BROMIDE DPI 5 CAP/KIT (18 MCG/CAP) IH SCH (09:35)
[2017-04-29] MEDS: FUROSEMIDE INJ/PF 40 MG/4 ML SDV IV SCH ×2 (09:36→17:16)
[2017-04-29] MEDS: ATORVASTATIN CALCIUM 20 MG TABLET PO SCH (21:08)
[2017-04-30 05:20] LABS: ANION GAP 5 (5-19); BLOOD UREA NITROGEN 27 mg/dL (7-20); CALCIUM 8.8 mg/dL (8.4-10.2); CARBON DIOXIDE 38 mmol/L (22-30); CHLORIDE 97 mmol/L (98-107); CREATININE RESULT 0.76 mg/dL (0.52-1.25); GLUCOSE 123 mg/dL (75-110); MAGNESIUM 2.2 mg/dL (1.6-2.3); POTASSIUM 4.3 mmol/L (3.6-5.0); SODIUM 140.2 mmol/L (137-145)
[2017-04-30] MEDS: HEPARIN SOD (PORCINE) 5,000 UNIT/ML 1 ML SYRINGE SUBCUT SCH ×2 (06:32→15:35)
[2017-04-30] MEDS: IPRATROPIUM/ALBUTEROL 0.5-2.5 MG/3 ML AMPUL NEB SCH ×2 (08:24→16:19)
[2017-04-30] MEDS: DOCUSATE SODIUM 100 MG CAPSULE PO SCH (10:22)
[2017-04-30] MEDS: ASPIRIN 81 MG TABLET, CHEWABLE PO SCH (10:22)
[2017-04-30] MEDS: FUROSEMIDE INJ/PF 40 MG/4 ML SDV IV SCH (10:22)
[2017-04-30] MEDS: POTASSIUM CHLORIDE 10 MEQ TABLET.SA PO SCH (10:22)
[2017-04-30] MEDS: TIOTROPIUM BROMIDE DPI 5 CAP/KIT (18 MCG/CAP) IH SCH (10:23)
[2017-04-30] MEDS: METOPROLOL SUCCINATE 25 MG TAB.SR.24H PO SCH (10:23)
--- NOTE | 2017-04-30 14:43 | PDOC PROGRESS REPORT ---
Subjective Progress Note for:: 04/29/17 Subjective:: Patient seen on morning rounds. He is presently resting in bed on BiPAP. He states his breathing is continuing to improve since admission. He is much less dyspneic and no longer wheezing. He continues to desaturate down in the 80's when he takes BIPAP off. We have discussed the need to put nasal cannula on when he is off the BIPAP He states he has been diuresing well with IV Lasix he was given. He denies any chest pain, palpitations or dyspnea. He denies any nausea, vomiting or abdominal pain. He denies any myalgias or arthralgias. He verbalizes no other complaints at the present time Physical Exam Vital Signs: Temp Pulse Resp BP Pulse Ox 97.3 F 64 18 116/75 97 04/29/17 07:39 04/29/17 09:03 04/29/17 09:03 04/29/17 07:39 04/29/17 09:03 Pulse Oximeter Continuous Start: 04/28/17 09: 33 Freq: RTQ4 Status: Active Document 04/29/17 09:03 [facility] (Rec: 04/29/17 09:57 [facility] [email or web address]) Pulse Oximetry Assessment Oxygen Saturation (92-100) 97 Oxygen Delivery Method Bi-pap Fraction of Inspired Oxygen (FIO2) 40 Equipment Usage Equipment in Use Continuous SpO2 Machine # 8 Pulse Oximeter Nocturnal Start: 04/26/17 10: 09 Freq: RTQ4 Status: Complete Document 04/27/17 07:56 [facility] (Rec: 04/27/17 08:00 [facility] [email or web address]) Nocturnal Pulse Oximetry Equipment Usage Equipment Discontinued Continuous SpO2 Machine # na Intake & Output 04/28/17 04/29/17 04/30/17 06:59 06:59 06:59 Intake Total 2870 1950 Output Total 1600 5125 Balance 1270 -3175 Weight 145.3 kg 145.9 kg General appearance: PRESENT: no acute distress, morbidly obese, well-developed, well-nourished Head exam: PRESENT: atraumatic, normocephalic Eye exam: PRESENT: conjunctiva pink, EOMI, PERRLA. ABSENT: scleral icterus Ear exam: PRESENT: normal external ear exam Mouth exam: PRESENT: moist, tongue midline Neck exam: ABSENT: carotid bruit, JVD, lymphadenopathy, thyromegaly Respiratory exam: PRESENT: crackles - bibasilar, decreased breath sounds. ABSENT: rales, rhonchi, wheezes Cardiovascular exam: PRESENT: RRR. ABSENT: diastolic murmur, rubs, systolic murmur Pulses: PRESENT: normal dorsalis pedis pul Vascular exam: PRESENT: normal capillary refill GI/Abdominal exam: PRESENT: normal bowel sounds, soft. ABSENT: distended, guarding, mass, organolmegaly, rebound, tenderness Rectal exam: PRESENT: deferred Extremities exam: PRESENT: full ROM, +1 edema - pedal to knees bilaterally. ABSENT: calf tenderness, clubbing, pedal edema Neurological exam: PRESENT: alert, awake, oriented to person, oriented to place , oriented to time, oriented to situation, CN II-XII grossly intact. ABSENT: motor sensory deficit Psychiatric exam: PRESENT: appropriate affect, normal mood. ABSENT: homicidal ideation, suicidal ideation Skin exam: PRESENT: dry, intact, warm. ABSENT: cyanosis, rash Results Laboratory Results: 04/26/17 07:31 04/26/17 07:31 04/28/17 11:20 Carbonic Acid 2.02 H HCO3/H2CO3 Ratio 19:1 ABG pH 7.38 ABG pCO2 67.2 H ABG pO2 71.3 L ABG HCO3 39.0 H ABG O2 Saturation 93.5 L ABG Base Excess 10.5 FiO2 40% 04/26/17 04/26/17 04/26/17 01:44 01:44 07:31 Creatine Kinase 55 46 L CK-MB (CK-2) 1.30 Troponin I 0.057 04/26/17 07:31 Creatine Kinase CK-MB (CK-2) 1.20 Troponin I 0.039 Impressions: Chest X-Ray 04/28/17 00:00 IMPRESSION: Bibasilar densities as noted above. Assessment & Plan - Diagnosis (1) Acute respiratory failure with hypoxia and hypercapnia Is this a current diagnosis for this admission?: YesPlan: Patient improved overnight with BiPAP therapy, IV steroids and nebulized treatments. Incentive spirometry and flutter valve. Will obtain nocturnal pulse oximetry for possible CPAP postdischarge.Will need follow up with pulmonary and sleep study post discharge (2) Acute on chronic diastolic heart failure Is this a current diagnosis for this admission?: YesPlan: We will continue to diuresis daily with IV Lasix until fluid volume overload improves. Will add second dose in the pm for today due to continued lower extremity edema (3) Leg edema Is this a current diagnosis for this admission?: YesPlan: IV diuretics to bid, support hose and ambulation. Improving (4) Obesity (BMI 30-39.9) Is this a current diagnosis for this admission?: YesPlan: Counseled (5) Obstructive sleep apnea Is this a current diagnosis for this admission?: YesPlan: Patient will need CPAP at discharge (6) Polycythemia Is this a current diagnosis for this admission?: YesPlan: Secondary to tobacco abuse, and chronic hypoxemia - Time Time Spent with patient: 25-34 minutes Smoking Cessation Education: 3 to 10 minutes Medications reviewed and adjusted accordingly: Yes Anticipated discharge: Home with Homehealth
--- NOTE | 2017-04-30 14:57 | PDOC PROGRESS REPORT ---
Subjective Progress Note for:: 04/30/17 Subjective:: Patient seen on morning rounds. He is presently resting in bed on BiPAP. He states his breathing is continuing to improve since admission. He is much less dyspneic and no longer wheezing. He continues to desaturate down in the 80's when he takes BIPAP off. We have discussed the need to put nasal cannula on when he is off the BIPAP He states he has been diuresing well with IV Lasix he was given. He denies any chest pain, palpitations or dyspnea. He denies any nausea, vomiting or abdominal pain. He denies any myalgias or arthralgias. He verbalizes no other complaints at the present time Physical Exam Vital Signs: Temp Pulse Resp BP Pulse Ox 97.5 F 60 17 116/67 95 04/30/17 07:33 04/30/17 08:24 04/30/17 08:24 04/30/17 07:33 04/30/17 08:24 Pulse Oximeter Continuous Start: 04/28/17 09: 33 Freq: RTQ4 Status: Active Document 04/30/17 08:24 [facility] (Rec: 04/30/17 09:02 [facility] [email or web address]) Pulse Oximetry Assessment Oxygen Saturation (92-100) 95 Oxygen Delivery Method Bi-pap Fraction of Inspired Oxygen (FIO2) 30 Equipment Usage Equipment in Use Continuous SpO2 Machine # N-8 Pulse Oximeter Nocturnal Start: 04/26/17 10: 09 Freq: RTQ4 Status: Complete Document 04/27/17 07:56 [facility] (Rec: 04/27/17 08:00 [facility] [email or web address]) Nocturnal Pulse Oximetry Equipment Usage Equipment Discontinued Continuous SpO2 Machine # na Intake & Output 04/29/17 04/30/17 05/01/17 06:59 06:59 06:59 Intake Total 1950 1600 960 Output Total 3745 0438 1200 Balance -3175 -1125 -970 Weight 145.9 kg 141.3 kg General appearance: PRESENT: no acute distress, morbidly obese, well-developed, well-nourished Head exam: PRESENT: atraumatic, normocephalic Eye exam: PRESENT: conjunctiva pink, EOMI, PERRLA. ABSENT: scleral icterus Ear exam: PRESENT: normal external ear exam Mouth exam: PRESENT: moist, tongue midline Respiratory exam: PRESENT: decreased breath sounds, symmetrical, unlabored Cardiovascular exam: PRESENT: RRR. ABSENT: diastolic murmur, rubs, systolic murmur Pulses: PRESENT: normal carotid pulses, normal radial pulses Vascular exam: PRESENT: normal capillary refill GI/Abdominal exam: PRESENT: normal bowel sounds, soft Rectal exam: PRESENT: deferred Extremities exam: PRESENT: full ROM, +1 edema, other - improving. ABSENT: calf tenderness, clubbing, pedal edema Musculoskeletal exam: PRESENT: ambulatory, full ROM, normal inspection Neurological exam: PRESENT: alert, awake, oriented to person, oriented to place , oriented to time, oriented to situation, CN II-XII grossly intact. ABSENT: motor sensory deficit Psychiatric exam: PRESENT: appropriate affect, normal mood. ABSENT: homicidal ideation, suicidal ideation Skin exam: PRESENT: dry, intact, warm. ABSENT: cyanosis, rash Results Laboratory Results: 04/26/17 07:31 04/30/17 04:41 04/30/17 04:41 Sodium 140.2 Potassium 4.3 Chloride 97 L Carbon Dioxide 38 H Anion Gap 5 BUN 27 H Creatinine 0.76 Est GFR ( Amer) > 60 Est GFR (Non-Af Amer) > 60 Glucose 123 H Calcium 8.8 Magnesium 2.2 04/26/17 04/26/17 04/26/17 01:44 01:44 07:31 Creatine Kinase 55 46 L CK-MB (CK-2) 1.30 Troponin I 0.057 NT-Pro-B Natriuret Pep 04/26/17 04/30/17 07:31 04:41 Creatine Kinase CK-MB (CK-2) 1.20 Troponin I 0.039 NT-Pro-B Natriuret Pep 613 Impressions: Chest X-Ray 04/28/17 00:00 IMPRESSION: Bibasilar densities as noted above. Assessment & Plan - Diagnosis (1) Acute respiratory failure with hypoxia and hypercapnia Is this a current diagnosis for this admission?: YesPlan: Patient improved overnight with BiPAP therapy, IV steroids and nebulized treatments. Incentive spirometry and flutter valve. Will obtain nocturnal pulse oximetry for possible CPAP postdischarge.Will need follow up with pulmonary and sleep study post discharge (2) Acute on chronic diastolic heart failure Is this a current diagnosis for this admission?: YesPlan: We will continue to diuresis daily with IV Lasix until fluid volume overload improves. Will add second dose in the pm for today due to continued lower extremity edema (3) Leg edema Is this a current diagnosis for this admission?: YesPlan: IV diuretics decrease to daily ,support hose and ambulation. Improving (4) Obesity (BMI 30-39.9) Is this a current diagnosis for this admission?: YesPlan: Counseled (5) Obstructive sleep apnea Is this a current diagnosis for this admission?: YesPlan: Patient will need CPAP at discharge (6) Polycythemia Is this a current diagnosis for this admission?: YesPlan: Secondary to tobacco abuse, and chronic hypoxemia - Time Time Spent with patient: 25-34 minutes Critical Time spent with patient: 15-24 minutes Medications reviewed and adjusted accordingly: Yes Anticipated discharge: Home with Homehealth
[2017-04-30] MEDS ORDERED: PREDNISONE 20 MG TABLET PO ONE (15:30)
[2017-04-30 16:29] VITALS: BP 92/60
--- NOTE | 2017-04-30 16:39 | PDOC DISCHARGE SUMMARY ---
General - Admit/Disc Date/PCP Admission Date/Primary Care Provider: 04/25/17 20:51 Discharge Date: 04/30/17 - Discharge Diagnosis (1) Acute respiratory failure with hypoxia and hypercapnia Is this a current diagnosis for this admission?: YesSummary: Patient has improved with IV steroids, nebulizers and BIPAP. He will need home oxygen and CPAP. Follow up with Dr Mohan at next available appointment (2) Acute on chronic diastolic heart failure Is this a current diagnosis for this admission?: YesSummary: Diuresed to baseline dry weight. Resume daily lasix and potassium. (3) Leg edema Is this a current diagnosis for this admission?: YesSummary: Resolved (4) Obesity (BMI 30-39.9) Is this a current diagnosis for this admission?: YesSummary: Counseled (5) Obstructive sleep apnea Is this a current diagnosis for this admission?: YesSummary: CPAP at HS (6) Polycythemia Is this a current diagnosis for this admission?: YesSummary: Secondary to chronic hypoxemia. Improved with oxygenation - Additional Information Resuscitation Status: Full Code Discharge Activity: Activity As Tolerated, Balance Activity w/Rest, Weigh Daily Home Medications: Aspirin [Aspirin 81 mg Chewable Tablet] 81 mg PO DAILY 04/25/17 Atorvastatin Calcium [Lipitor 20 mg Tablet] 20 mg PO QHS 04/25/17 Furosemide [Lasix] 40 mg PO DAILY 04/25/17 Metoprolol Succinate [Toprol Xl 25 mg Tab.sr] 25 mg PO DAILY 04/25/17 Acetaminophen [Tylenol 325 mg Tablet] 650 mg PO Q4HP PRN tablet 04/30/17 Budesonide/Formoterol Fumarate [Symbicort Hfa 80-4.5 Mcg Inhaler 6.9 gm] 2 puff IH BID #1 inhaler 04/30/17 Ipratropium/Albuterol Sulfate [Duoneb 3 ml Ampul] 3 ml NEB RTQ3HP PRN #90 vial.neb 04/30/17 Potassium Chloride [Klor-Con 10 Meq Tablet.sa] 20 meq PO DAILY #60 tablet.sa Prednisone 20 mg PO BID #10 tablet 04/30/17 Tiotropium [place] [Spiriva Handihaler 5 Cap/Kit (18 Mcg/Cap)] 1 cap IH DAILY # 1 kit 04/30/17 History of Present Illness Patient complains of: Increased shortness of breath and hypoxemia History of Present Illness: ROD PRATHER is a 61 year old male with a past medical history of morbid obesity, hypertension, suspected obstructive sleep apnea and venous stasis who had been in his usual state of health until approximately 7 days ago noting excessive the dyspnea with exertion prompting to seek evaluation at the [place] [facility] where he found to be with oxygen saturations in the mid 80s on room air and referred to the ER for evaluation. He is found awake and alert but short of breath requiring supplemental oxygen, a CBC reveals polycythemia and ABG reveals both hypoxia with a PO2 of 66 and a PCO2 of 70 and started on BiPAP. The patient denies medications reducing respiratory drive such as opiates or benzodiazepine or recent change in medication. Hospital Course Hospital Course: Patient was admitted to the hospitalist service on telemetry. He was placed on BiPAP therapy. He was started on IV steroids, nebulizer treatment and spirometry. He was aggressively given IV diuretics for lower for peripheral edema. Pulmonary was consulted. Dr. Mohan, saw the patient in consult. She was started on Symbicort inhalers. IV steroids were converted to oral steroid and tapering downward. Patient continued to be hypoxic when off BiPAP on room air. Oxygen saturations improved over the last 24 hrs. He was ambulated with nursing staff on nasal cannula and continue to maintain saturations 4 L/min. Patient and his state they have to go to the [facility] to obtain CPAP. Patient is consistent that he is going to be discharged today. Physical Exam Vital Signs: Temp Pulse Resp BP Pulse Ox 97.4 F 74 19 98/57 L 97 04/30/17 16:16 04/30/17 16:16 04/30/17 16:16 04/30/17 16:16 04/30/17 16:16 Pulse Oximeter Continuous Start: 04/28/17 09: 33 Freq: RTQ4 Status: Active Document 04/30/17 12:20 [facility] (Rec: 04/30/17 14:47 [facility] [email or web address]) Pulse Oximetry Assessment Oxygen Saturation (92-100) 95 Oxygen Delivery Method Bi-pap Fraction of Inspired Oxygen (FIO2) 30 Equipment Usage Equipment in Use Continuous SpO2 Machine # [id number] Pulse Oximeter Nocturnal Start: 04/26/17 10: 09 Freq: RTQ4 Status: Complete Document 04/27/17 07:56 [facility] (Rec: 04/27/17 08:00 [facility] [email or web address]) Nocturnal Pulse Oximetry Equipment Usage Equipment Discontinued Continuous SpO2 Machine # na Intake & Output 04/29/17 04/30/17 05/01/17 06:59 06:59 06:59 Intake Total 1950 1600 960 Output Total 5123 3328 1200 Balance -3175 -1125 -240 Weight 145.9 kg 141.3 kg General appearance: PRESENT: no acute distress, morbidly obese, well-developed, well-nourished Head exam: PRESENT: atraumatic, normocephalic Eye exam: PRESENT: conjunctiva pink, EOMI, PERRLA. ABSENT: scleral icterus Ear exam: PRESENT: normal external ear exam Mouth exam: PRESENT: moist, tongue midline Neck exam: ABSENT: carotid bruit, JVD, lymphadenopathy, thyromegaly Respiratory exam: PRESENT: decreased breath sounds, symmetrical, unlabored. ABSENT: rales, rhonchi, wheezes Cardiovascular exam: PRESENT: RRR. ABSENT: diastolic murmur, rubs, systolic murmur Pulses: PRESENT: normal dorsalis pedis pul Vascular exam: PRESENT: normal capillary refill GI/Abdominal exam: PRESENT: normal bowel sounds, soft, tenderness - Is Rectal exam: PRESENT: deferred Extremities exam: PRESENT: full ROM, +2 edema. ABSENT: calf tenderness, clubbing, pedal edema Musculoskeletal exam: PRESENT: ambulatory - Chief, full ROM - [place] there is something definitely wrong Neurological exam: PRESENT: alert - A morewould be interviewed he is no her 3 times a week and we can give you whenever they given you 10 over 80 Monty pulmonary,, awake, oriented to person, oriented to place, oriented to time, oriented to situation, CN II-XII grossly intact. ABSENT: motor sensory deficit Psychiatric exam: PRESENT: appropriate affect, normal mood. ABSENT: homicidal ideation, suicidal ideation Skin exam: PRESENT: dry, intact, warm. ABSENT: cyanosis, rash Results Laboratory Results: 04/26/17 07:31 04/30/17 04:41 04/30/17 04:41 Sodium 140.2 Potassium 4.3 Chloride 97 L Carbon Dioxide 38 H Anion Gap 5 BUN 27 H Creatinine 0.76 Est GFR ( Amer) > 60 Est GFR (Non-Af Amer) > 60 Glucose 123 H Calcium 8.8 Magnesium 2.2 04/26/17 04/26/17 04/26/17 01:44 01:44 07:31 Creatine Kinase 55 46 L CK-MB (CK-2) 1.30 Troponin I 0.057 NT-Pro-B Natriuret Pep 04/26/17 04/30/17 07:31 04:41 Creatine Kinase CK-MB (CK-2) 1.20 Troponin I 0.039 NT-Pro-B Natriuret Pep 613 Impressions: Chest X-Ray 04/28/17 00:00 IMPRESSION: Bibasilar densities as noted above. Qualifiers PATEINT BEING DISCHARGED WITH ANY OF THE FOLLOWING DIAGNOSIS?: No Plan Discharge Plan: Home with on portable oxygen Time Spent: Less than 30 Minutes
[2017-05-01] MEDS ORDERED: PREDNISONE 20 MG TABLET PO SCH (10:00)
[2017-05-01] MEDS ORDERED: FUROSEMIDE 40 MG TABLET PO SCH (10:00)
== END 2017-04-30 17:05 | disposition home or self-care (01) | DRG 189 ==
LOC: ER 16:27 → UNDOADMOB 19:46 → OBSVTOIN 19:46 → INTOOBSV 19:46 → EH 19:46 → OBSVTOIN 20:51 → 5 23:58
PROVIDERS: ADMIT Internal Medicine; ATTEND Internal Medicine
PROC: 5A09557 Assistance with Respiratory Ventilation, Greater than 96 Consecutive Hours, Continuous Positive Airway Pressure (ICD-10-PCS; principal; 2017-04-25)
DX: J96.01 Acute respiratory failure with hypoxia (principal); I50.33 Acute on chronic diastolic (congestive) heart failure; Z68.41 Body mass index [BMI] 40.0-44.9, adult; J96.02 Acute respiratory failure with hypercapnia; D75.1 Secondary polycythemia; I87.8 Other specified disorders of veins; E66.9 Obesity, unspecified; G47.33 Obstructive sleep apnea (adult) (pediatric); Z79.82 Long term (current) use of aspirin; Z79.899 Other long term (current) drug therapy; Z87.891 Personal history of nicotine dependence; Z88.0 Allergy status to penicillin
CPT/HCPCS: 36415; 36600; 71010; 71020; 80048; 80061; 80307; 82550; 82553; 82803; 83735; 83880; 84443; 84484; 85025; 93005; 93010; 93306; 94640; 94660; 94667; 94762; 94799; 96365; 96375; 99285; J0696; J1644; J1940; J2930; J3490; J7512; J7620

== ENCOUNTER 2018-07-28 13:31 | Inpatient (IN) | payer OTHER, BC ==
[2018-07-28] MEDS ORDERED: ASPIRIN 81 MG TABLET, CHEWABLE PO ONE (13:46)
--- NOTE | 2018-07-28 13:47 | ER Document Report ---
ED Medical Screen (RME) - General Stated Complaint: SHORTNESS OF BREATH Time Seen by Provider: 07/28/18 13:41 Notes: Patient presented via EMS for altered mental status and shortness of breath. Patient initially seen in position at triage. Patient was purple. Mumbling. Not making any sense. Patient was wheeled back to myself to bed 18 and placed on monitor. Placed on oxygen. Main side ED physician notified I have greeted and performed a rapid initial assessment of this patient. A comprehensive ED assessment and evaluation of the patient, analysis of test results and completion of the medical decision making process will be conducted by additional ED providers. TRAVEL OUTSIDE OF THE [place] IN LAST 30 DAYS: No - Related Data Allergies/Adverse Reactions: Penicillins Allergy (Verified 12/03/16 12:06) Past Medical History Pulmonary Medical History: Reports: Hx Sleep Apnea Renal/ Medical History: Denies: Hx Peritoneal Dialysis Past Surgical History: Reports: Hx Orthopedic Surgery
[2018-07-28] MEDS ORDERED: METHYLPREDNISOLONE INJ 125 MG/2 ML SDV IV ONE (13:49)
--- NOTE | 2018-07-28 13:58 | ER Document Report ---
ED Respiratory Problem - General Chief Complaint: Respiratory Distress Stated Complaint: SHORTNESS OF BREATH Time Seen by Provider: 07/28/18 13:41 Information source: Patient Notes: Patient is a 63-year-old male with past medical history as recorded including some hypercapnic respiratory distress with an intubation in the past according to patient and family. Patient also states a history of COPD. He is on oxygen at home at baseline. Patient was a CPAP machine at night. According to the patient and family the patient started to have some increased shortness of breath over the last 2 weeks. Patient denies any and all chest pain. He states a nonproductive cough. He states no swelling to his lower extremities above baseline. Patient denies any nausea, vomiting, or fevers. Patient was brought immediately back to 18 secondary to the patient having oxygen saturations in the 70s. TRAVEL OUTSIDE OF THE [place] IN LAST 30 DAYS: No - HPI Patient complains to provider of: Short of breath Onset: Other - See above Duration: Continuous Quality of pain: No pain Severity: Severe Pain Level: Denies Context: Other - See above Short of Breath: Moderate Cough: Nonproductive At home treatment: Bronchodilators, Oxygen Associated symptoms: Other - See above Similar symptoms previously: Yes Recently seen / treated by doctor: Yes - Related Data Allergies/Adverse Reactions: Penicillins Allergy (Verified 12/03/16 12:06) Past Medical History - Social History Smoking Status: Unknown if Ever Smoked Family History: None, Hypertension Pulmonary Medical History: Reports: Hx Sleep Apnea Renal/ Medical History: Denies: Hx Peritoneal Dialysis Past Surgical History: Reports: Hx Orthopedic Surgery Review of Systems - Review of Systems Constitutional: denies: Fever EENT: denies: Eye discharge, Nose discharge Cardiovascular: denies: Chest pain, Palpitations, Syncope, Dizziness, Lightheaded Respiratory: Short of breath. denies: Hemoptysis Gastrointestinal: denies: Vomiting Genitourinary: denies: Dysuria Musculoskeletal: denies: Leg swelling Skin: Other - no hives. denies: Rash Neurological/Psychological: Other - no slurred speech -: Yes All other systems reviewed and negative Physical Exam - Vital signs Vitals: Resp Pulse Ox 23 H 97 07/28/18 13:31 07/28/18 13:31 Notes: Reviewed vital signs and nursing note as charted by RN. CONSTITUTIONAL: Alert to person place and time and oriented and responds appropriately to questions HEAD: Normocephalic; atraumatic EYES: PERRL; Conjunctivae clear, sclerae non-icteric ENT: Normal nose; no rhinorrhea; moist mucous membranes; pharynx without lesions noted NECK: Supple without meningismus; non-tender; no cervical lymphadenopathy, no masses CARD: Regular rate and rhythm; no murmurs, no clicks, no rubs, no gallops; symmetric distal pulses RESP: Normal chest excursion without splinting; minimal tachypnea; breath sounds clear and equal bilaterally with very scant wheezing bilaterally without rhonchi or rales appreciated ABD/GI: Normal bowel sounds; non-distended; soft, non-tender, no rebound, no guarding; no palpable organomegaly or masses BACK: The back appears normal and is non-tender to palpation, there is no CVA tenderness EXT: Normal ROM in all joints; non-tender to palpation; no cyanosis, no effusions, 1+ edema to bilateral shins which is baseline according to the patient and family SKIN: Mild chronic looking nasal and paranasal ruddiness NEURO: Moves all extremities equally; Motor and sensory function intact PSYCH: The patient's mood and manner are appropriate. Grooming and personal hygiene are appropriate. Course - Re-evaluation Re-evalutation: Given the above history and physical examination we have ordered BiPAP, nebulizers, steroids, basic labs, ABG, EKG, and troponin. Patient is satting around 82% on the nasal cannula. Patient however is speaking in complete sentences. Lung examination as above. I do have a low pretest probability for PE and aortic dissection given the patient's history. We will place the patient on BiPAP and await the ABG results with repeat assessment. 07/28/18 13:57 EKG shows a heart rate of 100, sinus tachycardia, normal axis, no obvious ST elevation. Minimal ST depression in leads V3 through V5. Old EKG from April 2017 shows inverted T waves in leads V2 through V5 I have reviewed the patient's previous hospital record here at this hospital and it appears that the patient had a very similar presentation requiring BiPAP in 2017. Patient was not intubated during that visit. 07/28/18 14:03 There was a report from the that the patient has been slightly confused over the last 2 days. She also states that he showed some bilateral weakness in his legs. I do believe this is most likely to CO2 retention, but we will perform also a CT scan of the head. Patient currently is oriented to person place and time and has 5 out of 5 strength bilateral upper and lower extremities. 07/28/18 15:09 Initial laboratory values as recorded. Potassium slightly increased. Normal creatinine. BNP is elevated as is the troponin slightly. We will order 3 hour repeat troponin as well as CTA of the chest. Patient still denies any and all chest pain. I believe the slight troponina si secondary to the hypercarbic respiratory distress. 07/28/18 16:21 Patient is still speaking in complete sentences in no obvious respiratory distress. Oxygen saturation is now 98% on BiPAP. Repeat troponin is pending. 07/28/18 18:10 Patient is becoming more somnolent. Repeat blood gas actually shows worsening CO2 retention. We will intubate the patient at this time. 07/28/18 18:34 Intubation went very smoothly. No desaturations. Patient is currently on a ventilator. Propofol drip is infusing. Given the slight elevation of troponin , I had the lab tech Dr. Garland come down and see and evaluate the patient. He saw the patient as well as the EKG. He would like the patient placed on a heparin drip but does not feel that the patient needs to be transferred at this time. I have also called and spoken directly to the community service director . He has been kind enough to state that he will see the patient in the ICU this evening. - Vital Signs Vital signs: Temp Pulse Resp BP Pulse Ox 97.7 F 77 23 H 123/78 93 07/28/18 17:01 07/28/18 13:46 07/28/18 18:01 07/28/18 18:00 07/28/18 18:01 - Laboratory Result Diagrams: 07/28/18 13:42 07/28/18 13:42 Laboratory results interpreted by me: 07/28/18 07/28/18 07/28/18 13:42 13:42 13:42 MCV 102 H MCHC 31.0 L RDW 14.9 H Carbonic Acid ABG pH ABG pCO2 ABG pO2 ABG HCO3 ABG Total CO2 ABG O2 Saturation Potassium 5.4 H Chloride 86 L Carbon Dioxide 39 H Glucose 351 H Creatine Kinase 45 L NT-Pro-B Natriuret Pep 2480 H 07/28/18 07/28/18 13:51 17:28 MCV MCHC RDW Carbonic Acid 2.76 H 3.99 H ABG pH 7.28 L 7.18 L* ABG pCO2 91.8 H* 132.6 H* ABG pO2 46.7 L 121.3 H ABG HCO3 42.0 H 48.7 H ABG Total CO2 44.8 H 52.8 H ABG O2 Saturation 74.4 L Potassium Chloride Carbon Dioxide Glucose Creatine Kinase NT-Pro-B Natriuret Pep Procedures - Intubation Orotracheal Airway evaluation: Abnormal 3-3-2 rule, Large tongue, Obese Mallampati Classification: Class 3 Medications: Etomidate, Succinylcholine Intubation method: Orotracheal Blade type: Efren Blade size: 4 Equipment used: Glidescope ETT size: 8.0 ETT secured at: Teeth ETT secured at (cm): 24 Breath Sounds after Intubation: Equal End tidal CO2 confirmed: Yes Post Intubation Xray: Yes Intubation Complications: No complications Critical Care Note - Critical Care Note Total time excluding time spent on procedures (mins): 45 Discharge - Discharge Clinical Impression: Elevated troponin I level Hypercapnic respiratory failure Qualifiers: Chronicity: acute Qualified Code(s): J96.02 - Acute respiratory failure with hypercapnia Condition: Serious Disposition: ADMITTED INPATIENT Admitting Provider: Hospitalist Unit Admitted: ICU
[2018-07-28 13:59] LABS: ABSOLUTE LYMPHOCYTES (AUTO) 1.5 10^3/uL (0.5-4.7); ABSOLUTE MONOCYTES (AUTO) 0.6 10^3/uL (0.1-1.4); ABSOLUTE NEUT (AUTO) 6.7 10^3/uL (1.7-8.2); BASOPHILS % (AUTO) 0.4 % (0-2); EOSINOPHILS % (AUTO) 0.1 % (0-6); HEMATOCRIT 46.9 % (37.9-51.0); HEMOGLOBIN 14.5 g/dL (13.5-17.0); LYMPHOCYTES % (AUTO) 17.2 % (13-45); MEAN CORPUSCULAR HEMOGLOBIN 31.5 pg (27.0-33.4); MEAN CORPUSCULAR VOLUME 102 fl (80-97); MONOCYTES % (AUTO) 6.9 % (3-13); PLATELET COUNT 172 10^3/uL (150-450); RED BLOOD COUNT 4.61 10^6/uL (4.35-5.55); RED CELL DISTRIBUTION WIDTH 14.9 % (11.5-14.0); SEGMENTED NEUTROPHILS % (AUTO) 75.4 % (42-78); TOTAL CELLS COUNTED % (AUTO) 100 %; WHITE BLOOD COUNT 8.8 10^3/uL (4.0-10.5)
[2018-07-28 14:15] LABS: ALANINE AMINOTRANSFERASE 21 U/L (21-72); ALBUMIN 3.7 g/dL (3.5-5.0); ALKALINE PHOSPHATASE 60 U/L (38-126); ASPARTATE AMINO TRANSFERASE 18 U/L (17-59); BILIRUBIN,DIRECT 0.2 mg/dL (0.0-0.4); BILIRUBIN,TOTAL 0.6 mg/dL (0.2-1.3); BLOOD UREA NITROGEN 19 mg/dL (7-20); CHLORIDE 86 mmol/L (98-107); CREATINE KINASE 45 U/L (55-170); GLUCOSE 351 mg/dL (75-110); POTASSIUM 5.4 mmol/L (3.6-5.0); TOTAL PROTEIN 6.9 g/dL (6.3-8.2)
[2018-07-28 14:20] LABS: ARTERIAL BLOOD BASE EXCESS 10.8 mmol/L; ARTERIAL BLOOD H2CO3 2.76 mmol/L (1.05-1.35); ARTERIAL BLOOD O2 SATURATION 74.4 % (94-98); ARTERIAL BLOOD PH 7.28 (7.35-7.45); ARTERIAL BLOOD PO2 46.7 mmHg (80-100); ARTERIAL BLOOD TOTAL CO2 44.8 mmol/L (23-27)
[2018-07-28 14:21] LABS: ARTERIAL BLOOD FIO2 4L
[2018-07-28 14:22] LABS: ARTERIAL BLOOD PCO2 91.8 mmHg (35-45)
[2018-07-28 14:22] LABS: ANION GAP 12 (5-19); CARBON DIOXIDE 39 mmol/L (22-30)
[2018-07-28 14:27] LABS: CREATINE KINASE MB 2.14 ng/mL (<4.55)
[2018-07-28 14:32] LABS: TROPONIN I 0.185 ng/mL
[2018-07-28] MEDS: IPRATROPIUM/ALBUTEROL 0.5-2.5 MG/3 ML AMPUL NEB SCH ×2 (15:07→15:36)
[2018-07-28] MEDS ORDERED: NORMAL SALINE 1000 ML 500 ML IV ONE (15:08)
--- NOTE | 2018-07-28 15:46 | RADIOLOGY REPORT (SQ) ---
EXAM DESCRIPTION: CHEST SINGLE VIEW COMPLETED DATE/TIME: 07/28/2018 3:27 pm REASON FOR STUDY: 18; ams COMPARISON: Chest films 04/28/2017, 04/25/2017, 12/03/2016 EXAM PARAMETERS: NUMBER OF VIEWS: One view. TECHNIQUE: Single frontal radiographic view of the chest acquired. RADIATION DOSE: NA LIMITATIONS: Obese patient, portable technique FINDINGS: LUNGS AND PLEURA: Bibasilar bandlike atelectasis is present. No pleural effusions. No pneumothorax. MEDIASTINUM AND HILAR STRUCTURES: No masses. Contour normal. HEART AND VASCULAR STRUCTURES: Stable marked cardiomegaly BONES: No acute findings. HARDWARE: None in the chest. OTHER: No other significant finding. IMPRESSION: Bibasilar bandlike atelectasis Stable marked cardiomegaly TECHNICAL DOCUMENTATION: JOB ID: [id number] [employer]- All Rights Reserved Reading location - IP/workstation name: [email or web address]
--- NOTE | 2018-07-28 16:51 | RADIOLOGY REPORT (SQ) ---
EXAM DESCRIPTION: CT HEAD WITHOUT COMPLETED DATE/TIME: 07/28/2018 4:31 pm REASON FOR STUDY: 18; ams COMPARISON: CT brain 11/25/2016 TECHNIQUE: Axial images acquired through the brain without intravenous contrast. Images reviewed wi th bone, brain and subdural windows. Additional sagittal and coronal reconstructions were generated. Images stored on PACS. All CT scanners at this facility use dose modulation, iterative reconstruction, and/or weight based d osing when appropriate to reduce radiation dose to as low as reasonably achievable (ALARA). [facility]: Dose Right [facility]: CareDose [facility]: Dose Right [facility]: Teradose 4D [facility]: Smart Technologies RADIATION DOSE: CT Rad equipment meets quality standard of care and radiation dose reduction techniq ues were employed. CTDIvol: 53.2 - 55.2 mGy. DLP: 2182 mGy-cm. mGy. LIMITATIONS: Motion artifact. FINDINGS: Motion artifact throughout the study. On images without motion, no gross CT evidence of a cute large territory ischemic change, acute intracranial hemorrhage, mass effect, or midline shift. Orbits, paranasal sinuses unremarkable. IMPRESSION: Motion artifact. No acute changes. EVIDENCE OF ACUTE STROKE: NO. COMMENT: Quality ID # [id number]: Final reports with documentation of one or more dose reduction techniques (e.g., Automated exposure control, adjustment of the mA and/or kV according to patient size, use of iterative reconstruction technique) TECHNICAL DOCUMENTATION: JOB ID: [id number] [employer]- All Rights Reserved Reading location - IP/workstation name: [email or web address]
--- NOTE | 2018-07-28 16:56 | RADIOLOGY REPORT (SQ) ---
EXAM DESCRIPTION: CTA CHEST COMPLETED DATE/TIME: 07/28/2018 4:31 pm REASON FOR STUDY: 18; sob; hypercapnea COMPARISON: AP chest 07/28/2018 TECHNIQUE: CT scan of the chest performed using helical scanning technique with dynamic intravenous contrast injection. Images reviewed with lung, soft tissue and bone windows. Reconstructed coronal and sagittal MPR images reviewed. Additional 3 dimensional post-processing performed to develop Maximal Intensity Projection images (SC P). All images stored on PACS. All CT scanners at this facility use dose modulation, iterative reconstruction, and/or weight based d osing when appropriate to reduce radiation dose to as low as reasonably achievable (ALARA). [facility]: Dose Right [facility]: CareDose [facility]: Dose Right [facility]: Teradose 4D [facility]: Smart Plate CONTRAST TYPE AND DOSE: contrast/concentration: Isovue 350.00 mg/ml; Total Contrast Delivered: 75.0 ml; Total Saline Delivered: 75.0 ml Contrast bolus optimized for the pulmonary arteries and thoracic aorta. RENAL FUNCTION: Creatinine 0.86 RADIATION DOSE: CT Rad equipment meets quality standard of care and radiation dose reduction techniq ues were employed. CTDIvol: 11.7 - 42.3 mGy. DLP: 1763 mGy-cm. . LIMITATIONS: Motion artifact FINDINGS: LUNGS AND PLEURA: Upper lobes are hyperlucent from obstructive disease. Bibasilar consolidation is present atelectasis versus pneumonia Benign prominence of pleural fat in the upper right and upper left thorax. No pleural effusion. No pneumothorax. AORTA AND GREAT VESSELS: No aneurysm. No thoracic aortic dissection. Proximal great vessels are wid hailee. . HEART: No pericardial effusion. Moderate coronary artery calcification. Moderate cardiomegaly. PULMONARY ARTERIES: No emboli visualized in the main pulmonary arteries or the segmental branches. HILAR AND MEDIASTINAL STRUCTURES: No identified masses or abnormal nodes. HARDWARE: None in the chest. UPPER ABDOMEN: No significant findings. Limited exam. THYROID AND OTHER SOFT TISSUES: No masses. No adenopathy. BONES: No acute or significant finding. 3D MIPS: Confirm above findings. OTHER: No other significant finding. IMPRESSION: Bibasilar consolidation in the right and left posterior costophrenic sulci, atelectasis versus pneumonia No CT angio evidence of acute pulmonary emboli or thoracic aortic dissection COMMENT: Quality ID # [id number]: Final reports with documentation of one or more dose reduction techniques (e.g., Automated exposure control, adjustment of the mA and/or kV according to patient size, use of iterative reconstruction technique) TECHNICAL DOCUMENTATION: JOB ID: [id number] [employer]- All Rights Reserved Reading location - IP/workstation name: [email or web address]
[2018-07-28] MEDS ORDERED: AZITHROMYCIN INJ 500 MG VIAL IV ONE ×3 (17:10→22:00)
[2018-07-28] MEDS ORDERED: CEFTRIAXONE 1 GM/D5W RTU 1 GM/50 ML RTUPB IV ONE (17:10)
[2018-07-28 17:53] LABS: ARTERIAL BLOOD FIO2 60%
[2018-07-28 18:04] LABS: ARTERIAL BLOOD BASE EXCESS 13.9 mmol/L; ARTERIAL BLOOD H2CO3 3.99 mmol/L (1.05-1.35); ARTERIAL BLOOD HCO3 48.7 mmol/L (20-24); ARTERIAL BLOOD PO2 121.3 mmHg (80-100); ARTERIAL BLOOD TOTAL CO2 52.8 mmol/L (23-27)
[2018-07-28 18:08] LABS: ARTERIAL BLOOD PCO2 132.6 mmHg (35-45); ARTERIAL BLOOD PH 7.18 (7.35-7.45)
[2018-07-28] MEDS ORDERED: ETOMIDATE INJ/PF 20 MG/10 ML SDV IV ONE ×2 (18:12→18:22)
[2018-07-28] MEDS ORDERED: PROPOFOL 1,000 MG/100 ML INFUS..BTL IV ONE (18:21)
[2018-07-28] MEDS ORDERED: SUCCINYLCHOLINE CHLORIDE INJ 200 MG/10 ML VIAL IV ONE (18:23)
[2018-07-28] MEDS: PROPOFOL 1,000 MG/100 ML INFUS..BTL IV PRN ×4 (18:30→23:45)
[2018-07-28] MEDS ORDERED: HEPARIN SODIUM,PORCINE/D5W 25,000 UNIT/250 ML RTUINJ IV PRN ×2 (18:44→20:47)
[2018-07-28] MEDS ORDERED: HEPARIN SOD (PORCINE) 1,000 UNIT/ML 10 ML VIAL IV ONE (18:44)
[2018-07-28] MEDS ORDERED: VECURONIUM BROMIDE INJ 10 MG VIAL IV ONE ×2 (18:48→18:54)
[2018-07-28 19:48] LABS: INTERNATIONAL RATION (INR) 0.96; PROTHROMBIN TIME 13.2 SEC (11.4-15.4)
[2018-07-28 19:49] LABS: PARTIAL THROMBOPLASTIN TIME 27.5 SEC (23.5-35.8)
[2018-07-28] MEDS ORDERED: CEFTRIAXONE INJ 1000 MG VIAL ONE (19:57)
--- NOTE | 2018-07-28 19:57 | PDOC CONSULTATION ---
Consultation Consult Date: 07/28/18 Attending physician:: FLEX MAYES Consult reason:: Positive troponin I History of Present Illness Admission Date/PCP: 07/28/18 18:48 Patient complains of: Respiratory distress History of Present Illness: ROD PRATHER is a 63 year old male with past medical history as recorded including some hypercapnic respiratory distress with an intubation in the past according to patient and family. History obtained from patient's . Patient has a a history of COPD. He is on oxygen at home at baseline. Patient has a CPAP machine at night and is known to use it on fairly regular basis.. According to the patient and family the patient started to have some increased shortness of breath over the last 2 weeks. Patient denies any and all chest pain. He has been noted to have a nonproductive cough. He was noted to have no swelling to his lower extremities above baseline. Patient had denies any nausea, vomiting, or fevers. Patient was noted to have severe respiratory failure and got subsequently intubated. Subsequently patient's troponin I came back elevated. His EKG does show some nonspecific ST-T wave changes. I was asked to evaluate him because of abnormal troponin I. Patient's significant other at bedside and claims that patient has history of sleep apnea on CPAP therapy. He has gained significant weight recently. Patient has had previous admission to this hospital. Past Medical History Cardiac Medical History: Reports: Congestive Heart Failure, Hypertension Pulmonary Medical History: Reports: Chronic Obstructive Pulmonary Disease (COPD) , Sleep Apnea Past Surgical History Past Surgical History: Reports: Orthopedic Surgery Social History Information Source: Patient Smoking Status: Unknown if Ever Smoked Frequency of Alcohol Use: None Hx Recreational Drug Use: No Hx Prescription Drug Abuse: No - Advance Directive Resuscitation Status: Full Code Surrogate healthcare decision maker:: Patient's is the surrogate decision-maker Family History Family History: None, Hypertension Parental Family History Reviewed: Yes Children Family History Reviewed: Yes Sibling(s) Family History Reviewed.: Yes Medication/Allergy Allergies/Adverse Reactions: Penicillins Allergy (Verified 12/03/16 12:06) Review of Systems ROS unobtainable: Due to endotracheal tube Physical Exam Vital Signs: Temp Pulse Resp BP Pulse Ox 97.7 F 77 16 102/73 92 07/28/18 17:01 07/28/18 13:46 07/28/18 19:45 07/28/18 19:45 07/28/18 19:45 Exam: GENERAL: well-nourished and in no acute distress. Patient is intubated and sedated. Orientation cannot be checked HEAD: Atraumatic, normocephalic. EYES: Pupils equal round and reactive to light, extraocular movements could not be checked, sclera anicteric, conjunctiva are normal. ENT: TMs normal, nares patent, oropharynx clear without exudates. Moist mucous membranes. No oral ulcerations or bleeding gums noted NECK: supple without lymphadenopathy or JVD. Trachea is central. No cervical or axillary lymphadenopathy noted. Carotids are 2+ LUNGS: Breath sounds mostly clear to auscultation patient is noted to have bibasal crackles at the extreme bases CHEST: Palpation of the chest wall shows no significant chest wall tenderness or abnormalities. HEART: [employer], No PSH, 2/6 RAJ aortic area, 1/6 sánchez systolic murmur mitral area , no rubs or gallops. ABDOMEN: Soft, no significant tenderness appreciated, normoactive bowel sounds. No guarding, no rebound. No rigidity noted . No masses appreciated. EXTREMITIES: Pedal pulses are 1-2+, no calf tenderness noted, 1+ pedal edema noted. No clubbing or cyanosis. NEUROLOGICAL: The patient cannot participate in the neurological exam but no facial asymmetry noted. Extremities slightly hypotonic PSYCH: This cannot be evaluated. Patient cannot participate. SKIN: No significant ecchymosis, rash, or signs of pruritus noted. MUSCULOSKELETAL EXAM: No significant joint swelling noted. Patient cannot participate in musculoskeletal exam Results EKG Comments: 2 EKGs reviewed showed sinus rhythm with some ST-T wave changes. Impressions: Head CT 07/28/18 14:04 IMPRESSION: Motion artifact. No acute changes. EVIDENCE OF ACUTE STROKE: NO. Chest/Abdomen CTA 07/28/18 15:09 IMPRESSION: Bibasilar consolidation in the right and left posterior costophrenic sulci, atelectasis versus pneumonia No CT angio evidence of acute pulmonary emboli or thoracic aortic dissection Assessment & Plan - Diagnosis (2) Hypercapnic respiratory failure Qualifiers: Chronicity: acute Qualified Code(s): J96.02 - Acute respiratory failure with hypercapnia Is this a current diagnosis for this admission?: Yes (3) Abnormal electrocardiogram Is this a current diagnosis for this admission?: Yes (4) Congestive heart failure Qualifiers: Heart failure type: unspecified Is this a current diagnosis for this admission?: Yes (5) Acute respiratory failure with hypoxia and hypercapnia Is this a current diagnosis for this admission?: Yes - Notes Notes: Elevated troponin I: Most likely related to severe hypoxemia and hypercarbia along with acidosis. However patient does have some EKG changes and this along with troponin I being high, would recommend treating patient as ACS with heparin aspirin, statins etc. Recommend maintaining good oxygenation and vital signs. Abnormal electrocardiogram: Probably related to LVH but could well be from metabolic abnormalities. Cannot rule out underlying CAD. Will recommend a 2D echo to be performed. Non-STEMI: Patient qualifies for this diagnosis based on EKG changes and troponin I elevation. However it is difficult to say for sure whether it is to ACS related or related to metabolic reasons. It is best to to treat him as ACS and see how things sánchez out. CHF: Patient will benefit from being kept on the dry side. Recommend IV Lasix intermittently. Acute respiratory failure with both hypoxemia and hypercapnia: Agree with expeditious intubation and artificial ventilation. Obesity: Patient will benefit from gradual weight loss. Sleep apnea syndrome: Patient's says that patient is on CPAP therapy. Currently patient is intubated. - Time Time Spent: 30 to 50 Minutes - CODE STATUS was discussed, patient remains full code. Surrogate decision-maker unchanged. Multiple medical problems were addressed. More than 50% of the time spent coordinating care, discussing management plans with involved caregivers. Management plans discussed with involved personnels. Medical decision making was of moderate to high complexity , patient's has multiple comorbidities. Medications reviewed and adjusted accordingly: Yes
--- NOTE | 2018-07-28 20:04 | EKG REPORT ---
SEVERITY:- ABNORMAL ECG - SINUS TACHYCARDIA BORDERLINE RIGHT AXIS DEVIATION NONSPECIFIC REPOL ABNORMALITY, DIFFUSE LEADS : Confirmed by: Carlotta Klein MD 28-Jul-2018 20:04:03
--- NOTE | 2018-07-28 20:09 | RADIOLOGY REPORT (SQ) ---
EXAM DESCRIPTION: CHEST SINGLE VIEW COMPLETED DATE/TIME: 07/28/2018 7:19 pm REASON FOR STUDY: 18; s/p intubation COMPARISON: 07/28/2018. EXAM PARAMETERS: NUMBER OF VIEWS: One view. TECHNIQUE: Single frontal radiographic view of the chest acquired. RADIATION DOSE: NA LIMITATIONS: None. FINDINGS: LUNGS AND PLEURA: Patchy airspace disease. MEDIASTINUM AND HILAR STRUCTURES: No masses. Contour normal. HEART AND VASCULAR STRUCTURES: Cardiomegaly. BONES: No acute findings. HARDWARE: Endotracheal tube with the tip located 3.5 cm proximal to the elda. OTHER: No other significant finding. IMPRESSION: 1. ENDOTRACHEAL TUBE APPEARS TO BE IN APPROPRIATE POSITION. 2. CARDIOMEGALY WITH PATCHY AIRSPACE DISEASE. TECHNICAL DOCUMENTATION: JOB ID: [id number] [employer]- All Rights Reserved Reading location - IP/workstation name: [email or web address]
[2018-07-28] MEDS ORDERED: FENTANYL CITRATE INJ/PF 100 MCG/2 ML AMPUL ONE (20:33)
[2018-07-28] MEDS ORDERED: PROMETHAZINE HCL INJ 25 MG/1 ML VIAL IV PRN (20:36)
[2018-07-28] MEDS ORDERED: DEXTROSE 50%-WATER 25 GM/50 ML DISP.SYRIN IV PRN ×4 (20:36→20:50)
[2018-07-28] MEDS ORDERED: PROPOFOL 1,000 MG/100 ML INFUS..BTL IV PRN (20:36)
[2018-07-28] MEDS ORDERED: MAG HYDROX/AL HYDROX/SIMETH SUSP 30 ML UDCUP PO PRN (20:36)
[2018-07-28] MEDS ORDERED: DEXTROSE 40% GEL 15 GM TUBE PO PRN ×4 (20:36→20:50)
[2018-07-28] MEDS ORDERED: ACETAMINOPHEN 325 MG TABLET PO PRN (20:36)
[2018-07-28] MEDS ORDERED: IPRATROPIUM/ALBUTEROL 0.5-2.5 MG/3 ML AMPUL NEB PRN (20:36)
[2018-07-28] MEDS ORDERED: GLUCAGON,HUMAN RECOMB 1 MG INJ SUBCUT PRN (20:36)
[2018-07-28] MEDS ORDERED: FENTANYL CITRATE INJ/PF 100 MCG/2 ML AMPUL IV PRN ×2 (20:39→20:49)
[2018-07-28] MEDS ORDERED: GLUCAGON,HUMAN RECOMB 1 MG INJ IM PRN (20:50)
[2018-07-28 21:21] LABS: CREATINE KINASE MB 2.56 ng/mL (<4.55)
[2018-07-28 21:39] LABS: TROPONIN I 0.472 ng/mL
[2018-07-28 23:22] LABS: ARTERIAL BLOOD BASE EXCESS 14.7 mmol/L; ARTERIAL BLOOD H2CO3 2.14 mmol/L (1.05-1.35); ARTERIAL BLOOD HCO3 43.2 mmol/L (20-24); ARTERIAL BLOOD O2 SATURATION 91.3 % (94-98); ARTERIAL BLOOD PO2 63.3 mmHg (80-100); ARTERIAL BLOOD TOTAL CO2 45.4 mmol/L (23-27)
[2018-07-28 23:23] LABS: ARTERIAL BLOOD FIO2 60%
[2018-07-28 23:25] LABS: ARTERIAL BLOOD PCO2 71.2 mmHg (35-45)
[2018-07-28] MEDS: METHYLPREDNISOLONE INJ 125 MG/2 ML SDV IV SCH (23:58)
[2018-07-29] MEDS: PROPOFOL 1,000 MG/100 ML INFUS..BTL IV PRN ×13 (01:17→22:26)
--- NOTE | 2018-07-29 01:31 | PDOC H&P ---
History of Present Illness Admission Date/PCP: 07/28/18 18:48 José Miguel Pierce Patient complains of: confusion History of Present Illness: ROD PRATHER is a 63 year old male who is at the time of my evaluation intubated on mechanical ventilator. and daughter are at the bedside. Family tells me that his symptoms started yesterday, he was slurring his words, was complaining of generalized weakness, was confused and sometimes he was not recognizing his family members. Patient has chronic respiratory failure on 4 L oxygen at home for the last year but apparently he has been progressive shortness of breath for the last 2 weeks with baseline cough with a sputum, does not know if he had more wheezing than his usual. tells me that he was not having any fever, chills, nausea, vomiting, dizziness, chest pain or lower extremities edema. History of intubation in the past. Wears CPAP machine for his DAWNA ABG7.28/91/46, patient was initially placed on BiPAP, unfortunately his repeated ABG 7.18/132/121 which prompted to emergent intubation. Patient's baseline CO2 is in the 70s. Troponins were sent in the ED 0.185, 0.336, Dr. Garland from the cardiology department was consulted, he felt that this is secondary to his acute respiratory failure, however recommended to treat as ACS with heparin infusion. CTA negative for PE and shows by basilar consolidation. Dr. Cortez from the pulmonary department was called by the ED attending and states that we will see the patient in the ICU Past Medical History Cardiac Medical History: Reports: Congestive Heart Failure, Hypertension Pulmonary Medical History: Reports: Chronic Obstructive Pulmonary Disease (COPD) , Sleep Apnea Past Surgical History Past Surgical History: Reports: Orthopedic Surgery Social History Smoking Status: Former Smoker Last Time Smoked: 2015 Frequency of Alcohol Use: None Hx Recreational Drug Use: No Hx Prescription Drug Abuse: No - Advance Directive Resuscitation Status: Full Code Family History Family History: None, Hypertension Parental Family History Reviewed: No Children Family History Reviewed: NA Sibling(s) Family History Reviewed.: NA Medication/Allergy Home Medications: Aspirin [Aspirin 81 mg Chewable Tablet] 81 mg PO DAILY 04/25/17 Atorvastatin Calcium [Lipitor 20 mg Tablet] 20 mg PO QHS 04/25/17 Furosemide [Lasix] 40 mg PO DAILY 04/25/17 Metoprolol Succinate [Toprol Xl 25 mg Tab.sr] 25 mg PO DAILY 04/25/17 Acetaminophen [Tylenol 325 mg Tablet] 650 mg PO Q4HP PRN tablet 04/30/17 Budesonide/Formoterol Fumarate [Symbicort Hfa 80-4.5 Mcg Inhaler 6.9 gm] 2 puff IH BID #1 inhaler 04/30/17 Ipratropium/Albuterol Sulfate [Duoneb 3 ml Ampul] 3 ml NEB RTQ3HP PRN #90 vial.neb 04/30/17 Potassium Chloride [Klor-Con 10 Meq Capsule ER] 20 meq PO DAILY #60 tablet.sa Prednisone 20 mg PO BID #10 tablet 04/30/17 Tiotropium Proctor [Spiriva Handihaler 5 Cap/Kit (18 Mcg/Cap)] 1 cap IH DAILY # 1 kit 04/30/17 Allergies/Adverse Reactions: Penicillins Allergy (Verified 12/03/16 12:06) Review of Systems Review of Systems: Unable to obtain as the patient is intubated on sedation Physical Exam Vital Signs: Temp Pulse Resp BP Pulse Ox 98.8 F 73 14 120/93 H 94 07/29/18 00:00 07/28/18 22:49 07/28/18 22:49 07/28/18 22:49 07/28/18 22:49 Intake & Output 07/27/18 07/28/18 07/29/18 06:59 06:59 06:59 Intake Total 178 Output Total 815 Balance -637 Weight 157.3 kg Additional comments: General appearance: Well-developed, obese, intubated on sedation Head: Normocephalic Eyes: PEERL. Ears: External auditory canal and tympanic membranes clear. Nose : No nasal discharge. Throat: Oral cavity and pharynx normal. No inflammation , swelling, exudate or lesions. Neck: Neck supple, nontender without lymphadenopathy, masses or thyromegaly. Cardiac: Normal S1 and S2. No S3, S4 or murmurs. Rhythm is regular. There is no peripheral edema, cyanosis or pallor. Extremities are warm and well perfused. Capillary refill is less than 2 seconds. No carotid bruits. Lungs: Bilateral mild wheezing, mild diffuse rales with bilateral diminished breath sounds, do not appreciate rhonchi. Not using accessory muscles. Abdomen: Positive bowel sounds. Soft. Nondistended. No guarding or rebound. No masses. No hepatosplenomegaly Extremities: No significant deformity or joint abnormality. No edema. Peripheral pulses intact. No varicosities. Neurological: Unable to evaluate. Skin: Skin normal color, texture and turgor with no lesions or eruptions, warm and dry. Psychiatric: Unable to evaluate Results Laboratory Results: 07/28/18 23:10 Carbonic Acid 2.14 H HCO3/H2CO3 Ratio 20:1 ABG pH 7.40 ABG pCO2 71.2 H* ABG pO2 63.3 L ABG HCO3 43.2 H ABG O2 Saturation 91.3 L ABG Base Excess 14.7 FiO2 60% 07/28/18 19:30 CK-MB (CK-2) 2.56 Troponin I 0.472 07/28/18 07/28/18 07/28/18 13:42 13:42 13:42 WBC 8.8 RBC 4.61 Hgb 14.5 Hct 46.9 MCV 102 H MCH 31.5 MCHC 31.0 L RDW 14.9 H Plt Count 172 Seg Neutrophils % 75.4 Lymphocytes % 17.2 Monocytes % 6.9 Eosinophils % 0.1 Basophils % 0.4 Absolute Neutrophils 6.7 Absolute Lymphocytes 1.5 Absolute Monocytes 0.6 Absolute Eosinophils 0.0 Absolute Basophils 0.0 PT INR APTT Carbonic Acid HCO3/H2CO3 Ratio ABG pH ABG pCO2 ABG pO2 ABG HCO3 ABG Total CO2 ABG O2 Saturation ABG Base Excess FiO2 Sodium 137.0 Potassium 5.4 H Chloride 86 L Carbon Dioxide 39 H Anion Gap 12 BUN 19 Creatinine 0.86 Est GFR ( Amer) > 60 Est GFR (Non-Af Amer) > 60 Glucose 351 H Calcium 9.0 Total Bilirubin 0.6 Direct Bilirubin 0.2 AST 18 ALT 21 Alkaline Phosphatase 60 Creatine Kinase 45 L CK-MB (CK-2) 2.14 Troponin I 0.185 NT-Pro-B Natriuret Pep 2480 H Total Protein 6.9 Albumin 3.7 07/28/18 07/28/18 07/28/18 13:51 17:28 17:28 WBC RBC Hgb Hct MCV MCH MCHC RDW Plt Count Seg Neutrophils % Lymphocytes % Monocytes % Eosinophils % Basophils % Absolute Neutrophils Absolute Lymphocytes Absolute Monocytes Absolute Eosinophils Absolute Basophils PT INR APTT Carbonic Acid 2.76 H 3.99 H HCO3/H2CO3 Ratio 15:1 12:1 ABG pH 7.28 L 7.18 L* ABG pCO2 91.8 H* 132.6 H* ABG pO2 46.7 L 121.3 H ABG HCO3 42.0 H 48.7 H ABG Total CO2 44.8 H 52.8 H ABG O2 Saturation 74.4 L 97.0 ABG Base Excess 10.8 13.9 FiO2 4L 60% Sodium Potassium Chloride Carbon Dioxide Anion Gap BUN Creatinine Est GFR ( Amer) Est GFR (Non-Af Amer) Glucose Calcium Total Bilirubin Direct Bilirubin AST ALT Alkaline Phosphatase Creatine Kinase CK-MB (CK-2) Troponin I 0.336 NT-Pro-B Natriuret Pep Total Protein Albumin 07/28/18 07/28/18 19:30 19:30 WBC RBC Hgb Hct MCV MCH MCHC RDW Plt Count Seg Neutrophils % Lymphocytes % Monocytes % Eosinophils % Basophils % Absolute Neutrophils Absolute Lymphocytes Absolute Monocytes Absolute Eosinophils Absolute Basophils PT 13.2 INR 0.96 APTT 27.5 Carbonic Acid HCO3/H2CO3 Ratio ABG pH ABG pCO2 ABG pO2 ABG HCO3 ABG Total CO2 ABG O2 Saturation ABG Base Excess FiO2 Sodium Potassium Chloride Carbon Dioxide Anion Gap BUN Creatinine Est GFR ( Amer) Est GFR (Non-Af Amer) Glucose Calcium Total Bilirubin Direct Bilirubin AST ALT Alkaline Phosphatase Creatine Kinase CK-MB (CK-2) 2.56 Troponin I 0.472 NT-Pro-B Natriuret Pep Total Protein Albumin EKG Comments: Heart rate 100 bpm, sinus tachycardia, normal axis, no obvious ST elevations with minimal ST depression in leads V3 through V5 Impressions: Head CT 07/28/18 14:04 IMPRESSION: Motion artifact. No acute changes. EVIDENCE OF ACUTE STROKE: NO. Chest/Abdomen CTA 07/28/18 15:09 IMPRESSION: Bibasilar consolidation in the right and left posterior costophrenic sulci, atelectasis versus pneumonia No CT angio evidence of acute pulmonary emboli or thoracic aortic dissection Chest X-Ray 07/28/18 18:41 IMPRESSION: 1. ENDOTRACHEAL TUBE APPEARS TO BE IN APPROPRIATE POSITION. 2. CARDIOMEGALY WITH PATCHY AIRSPACE DISEASE. Assessment & Plan - Diagnosis (1) Acute respiratory failure with hypoxia and hypercapnia Is this a current diagnosis for this admission?: Yes Plan: Acute on chronic respiratory failure with hypoxia and hypercapnia in this patient with history of chronic respiratory failure on 4 L oxygen at home with progressive respiratory symptoms for the last 2 weeks. Needed to be intubated in the emergency department as he was initially placed on BiPAP but the Co2 increased from 91 from 132. Continue full mechanical ventilator. Solu-Medrol 60 mg every 8 hours. IV azithromycin and IV Rocephin for possible bibasilar infiltrates. Sputum culture. RT. Nebulizer treatments as needed. Repeated ABG now .. Dr. Cortez from the pulmonary department has been consulted by the ED attending (2) COPD exacerbation Is this a current diagnosis for this admission?: Yes Plan: As per prior assessment. (3) NSTEMI (non-ST elevation myocardial infarction) Is this a current diagnosis for this admission?: Yes Plan: Troponins has been trending up 0.185, 0.336, 0.472. Dr. Garland from the cardiology department already evaluated the patient and recommended to treat as CAD. Patient has been started on heparin infusion and we will place core measures. (4) Diastolic CHF, chronic Is this a current diagnosis for this admission?: Yes Plan: Patient is on Lasix at home. BMP 2480, on April this year BNP 613, this could be multifactorial. I will continue with his home Lasix. As per cardiology evaluation. Echocardiogram will be ordered. (5) DAWNA (obstructive sleep apnea) Is this a current diagnosis for this admission?: Yes Plan: Initially on CPAP at home, currently intubated (6) Hypertension Qualifiers: Hypertension type: essential hypertension Qualified Code(s): I10 - Essential (primary) hypertension Is this a current diagnosis for this admission?: Yes Plan: Continue home antihypertensive medications (7) CAP (community acquired pneumonia) Is this a current diagnosis for this admission?: Yes Plan: Possible bibasilar infiltrates, IV azithromycin and IV Rocephin, as per assessment #1. (8) Hyperglycemia Is this a current diagnosis for this admission?: Yes Plan: Patient does not have any history of diabetes mellitus, will place the patient on Accu-Cheks every 4 hours with insulin lispro sliding scale and hypoglycemia protocol. Hemoglobin A1c with morning labs. Potassium 5.4, likely related with hyper glycemia. Will reassess in the morning. - Time Time Spent: 30 to 50 Minutes - Inpatient Certification Based on my medical assessment, after consideration of the patient's comorbidities, presenting symptoms, or acuity I expect that the services needed warrant INPATIENT care.: Yes I certify that my determination is in accordance with my understanding of Medicare's requirements for reasonable and necessary INPATIENT services [42 CFR 412.3e].: Yes Medical Necessity: Risk of Diagnosis Which Will Require Inpatient Eval/Care/ Monitoring
[2018-07-29 02:39] LABS: ABSOLUTE LYMPHOCYTES (AUTO) 0.9 10^3/uL (0.5-4.7); ABSOLUTE MONOCYTES (AUTO) 0.3 10^3/uL (0.1-1.4); ABSOLUTE NEUT (AUTO) 5.6 10^3/uL (1.7-8.2); BASOPHILS % (AUTO) 0.6 % (0-2); HEMATOCRIT 42.8 % (37.9-51.0); HEMOGLOBIN 13.7 g/dL (13.5-17.0); LYMPHOCYTES % (AUTO) 12.9 % (13-45); MEAN CORPUSCULAR HEMOGLOBIN 31.9 pg (27.0-33.4); MEAN CORPUSCULAR VOLUME 100 fl (80-97); MONOCYTES % (AUTO) 3.9 % (3-13); PLATELET COUNT 157 10^3/uL (150-450); RED BLOOD COUNT 4.29 10^6/uL (4.35-5.55); RED CELL DISTRIBUTION WIDTH 14.9 % (11.5-14.0); SEGMENTED NEUTROPHILS % (AUTO) 82.6 % (42-78); TOTAL CELLS COUNTED % (AUTO) 100 %; WHITE BLOOD COUNT 6.8 10^3/uL (4.0-10.5)
[2018-07-29 02:56] LABS: ALANINE AMINOTRANSFERASE 31 U/L (21-72); ALBUMIN 3.3 g/dL (3.5-5.0); ALKALINE PHOSPHATASE 63 U/L (38-126); ASPARTATE AMINO TRANSFERASE 20 U/L (17-59); BILIRUBIN,DIRECT 0.4 mg/dL (0.0-0.4); BILIRUBIN,TOTAL 0.8 mg/dL (0.2-1.3); BLOOD UREA NITROGEN 19 mg/dL (7-20); CALCIUM 8.6 mg/dL (8.4-10.2); CHLORIDE 88 mmol/L (98-107); GLUCOSE 334 mg/dL (75-110); PHOSPHORUS 1.5 mg/dL (2.5-4.5); POTASSIUM 5.3 mmol/L (3.6-5.0); SODIUM 133.9 mmol/L (137-145); TOTAL PROTEIN 6.4 g/dL (6.3-8.2)
[2018-07-29 03:00] LABS: INTERNATIONAL RATION (INR) 0.97; PROTHROMBIN TIME 13.4 SEC (11.4-15.4)
[2018-07-29 03:03] LABS: ANION GAP 7 (5-19); CARBON DIOXIDE 39 mmol/L (22-30)
[2018-07-29] MEDS: INSULIN LISPRO 100 UNIT/ML 3 ML VIAL SUBCUT PRN ×5 (03:08→21:56)
[2018-07-29] MEDS ORDERED: HEPARIN SOD (PORCINE) 5,000 UNIT/ML 1 ML SYRINGE ONE (03:28)
[2018-07-29] MEDS ORDERED: HEPARIN SOD (PORCINE) 1,000 UNIT/ML 10 ML VIAL IV PRN (03:36)
[2018-07-29] MEDS: METHYLPREDNISOLONE INJ 125 MG/2 ML SDV IV SCH (05:32)
[2018-07-29 06:03] LABS: ARTERIAL BLOOD BASE EXCESS 10.5 mmol/L; ARTERIAL BLOOD H2CO3 1.86 mmol/L (1.05-1.35); ARTERIAL BLOOD HCO3 37.8 mmol/L (20-24); ARTERIAL BLOOD O2 SATURATION 94.8 % (94-98); ARTERIAL BLOOD PCO2 61.8 mmHg (35-45); ARTERIAL BLOOD PO2 75.6 mmHg (80-100); ARTERIAL BLOOD TOTAL CO2 39.7 mmol/L (23-27)
[2018-07-29 06:07] LABS: ARTERIAL BLOOD FIO2 60%
[2018-07-29] MEDS ORDERED: IPRATROPIUM/ALBUTEROL 0.5-2.5 MG/3 ML AMPUL NEB SCH (09:45)
[2018-07-29 09:52] LABS: HEMATOCRIT 41.7 % (37.9-51.0); HEMOGLOBIN 13.4 g/dL (13.5-17.0); MEAN CORPUSCULAR HEMOGLOBIN 31.4 pg (27.0-33.4); MEAN CORPUSCULAR VOLUME 98 fl (80-97); PLATELET COUNT 165 10^3/uL (150-450); RED BLOOD COUNT 4.26 10^6/uL (4.35-5.55); RED CELL DISTRIBUTION WIDTH 14.6 % (11.5-14.0); WHITE BLOOD COUNT 7.8 10^3/uL (4.0-10.5)
[2018-07-29] MEDS ORDERED: METOPROLOL SUCCINATE 25 MG TAB.SR.24H PO SCH (10:00)
[2018-07-29] MEDS ORDERED: FUROSEMIDE 40 MG TABLET PO SCH (10:00)
[2018-07-29] MEDS ORDERED: ASPIRIN 81 MG TABLET, CHEWABLE PO SCH (10:00)
[2018-07-29 10:04] LABS: BLOOD UREA NITROGEN 20 mg/dL (7-20); CALCIUM 8.5 mg/dL (8.4-10.2); CHLORIDE 88 mmol/L (98-107); GLUCOSE 332 mg/dL (75-110); POTASSIUM 5.1 mmol/L (3.6-5.0); SODIUM 133.4 mmol/L (137-145)
[2018-07-29 10:16] LABS: ANION GAP 4 (5-19)
[2018-07-29 10:18] LABS: CARBON DIOXIDE 41 mmol/L (22-30)
--- NOTE | 2018-07-29 10:24 | RADIOLOGY REPORT (SQ) ---
EXAM DESCRIPTION: CHEST SINGLE VIEW COMPLETED DATE/TIME: 07/29/2018 10:01 am REASON FOR STUDY: intubated COMPARISON: 07/28/2018. EXAM PARAMETERS: NUMBER OF VIEWS: One view. TECHNIQUE: Single frontal radiographic view of the chest acquired. RADIATION DOSE: NA LIMITATIONS: None. FINDINGS: LUNGS AND PLEURA: Patchy basilar densities, left greater than right. MEDIASTINUM AND HILAR STRUCTURES: No masses. Contour normal. HEART AND VASCULAR STRUCTURES: Cardiomegaly, unchanged. BONES: No acute findings. HARDWARE: Stable endotracheal tube. Distal portion of the nasogastric tube difficult to visualize. OTHER: No other significant finding. IMPRESSION: NO SIGNIFICANT CHANGE IN APPEARANCE OF THE CHEST. TECHNICAL DOCUMENTATION: JOB ID: [id number] [employer]- All Rights Reserved Reading location - IP/workstation name: [email or web address]
[2018-07-29] MEDS: IPRATROPIUM BROMIDE 0.02% NEB 0.5 MG/2.5 ML AMPUL NEB SCH ×2 (10:46→16:07)
[2018-07-29] MEDS: LEVALBUTEROL HCL NEB 1.25 MG/3 ML AMPUL NEB SCH ×2 (10:46→16:07)
[2018-07-29 10:51] LABS: ARTERIAL BLOOD BASE EXCESS 15.2 mmol/L; ARTERIAL BLOOD H2CO3 1.66 mmol/L (1.05-1.35); ARTERIAL BLOOD HCO3 41.2 mmol/L (20-24); ARTERIAL BLOOD O2 SATURATION 95.6 % (94-98); ARTERIAL BLOOD PCO2 55.1 mmHg (35-45); ARTERIAL BLOOD PH 7.49 (7.35-7.45); ARTERIAL BLOOD PO2 74.3 mmHg (80-100); ARTERIAL BLOOD TOTAL CO2 42.9 mmol/L (23-27)
[2018-07-29 10:54] LABS: ARTERIAL BLOOD FIO2 60%
[2018-07-29] MEDS: FUROSEMIDE INJ/PF 40 MG/4 ML SDV IV SCH (11:00)
[2018-07-29] MEDS: PANTOPRAZOLE SODIUM 40 MG VIAL IV SCH (11:01)
[2018-07-29] MEDS: LEVOFLOXACIN 750 MG/D5W RTU 750 MG/150 ML RTUPB IV SCH (11:03)
--- NOTE | 2018-07-29 11:06 | PDOC PROGRESS REPORT ---
Subjective Progress Note for:: 07/29/18 Subjective:: Patient about the same and has made very little progress. There is no significant change in general condition. Patient remains intubated, sedated, patient however looks comfortable and in acute distress. Patient maintaining sinus rhythm. Blood pressure is on the low side. The troponin I peaked and then are trending down. Medications reviewed. Reason For Visit: ACUTE HYPOXIC,HYPERCAPNIC RESPIRATORY FAILURE, Physical Exam Vital Signs: Temp Pulse Resp BP Pulse Ox 98.1 F 66 14 98/69 L 94 07/29/18 10:00 07/29/18 10:00 07/29/18 10:00 07/29/18 10:00 07/29/18 10:00 Intake & Output 07/28/18 07/29/18 07/30/18 06:59 06:59 06:59 Intake Total 636 362 Output Total 1340 115 Balance -704 247 Weight 157.3 kg Exam: GENERAL: well-nourished and in no acute distress. Patient is intubated and sedated. Orientation cannot be checked HEAD: Atraumatic, normocephalic. EYES: Pupils equal round and reactive to light, extraocular movements could not be checked, sclera anicteric, conjunctiva are normal. ENT: TMs normal, nares patent, oropharynx clear without exudates. Moist mucous membranes. No oral ulcerations or bleeding gums noted NECK: supple without lymphadenopathy or JVD. Trachea is central. No cervical or axillary lymphadenopathy noted. Carotids are 2+ LUNGS: Breath sounds mostly clear to auscultation patient is noted to have bibasal crackles at the extreme bases CHEST: Palpation of the chest wall shows no significant chest wall tenderness or abnormalities. 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 ABDOMEN: Soft, no significant tenderness appreciated, normoactive bowel sounds. No guarding, no rebound. No rigidity noted . No masses appreciated. EXTREMITIES: Pedal pulses are 1-2+, no calf tenderness noted, 1+ pedal edema noted. No clubbing or cyanosis. NEUROLOGICAL: The patient cannot participate in the neurological exam but no facial asymmetry noted. Extremities slightly hypotonic PSYCH: This cannot be evaluated. Patient cannot participate. SKIN: No significant ecchymosis, rash, or signs of pruritus noted. MUSCULOSKELETAL EXAM: No significant joint swelling noted. Patient cannot participate in musculoskeletal exam Results Laboratory Results: 07/29/18 08:45 07/29/18 08:45 07/28/18 07/29/18 07/29/18 23:10 02:16 02:16 WBC 6.8 RBC 4.29 L Hgb 13.7 Hct 42.8 MCV 100 H MCH 31.9 MCHC 32.0 RDW 14.9 H Plt Count 157 Seg Neutrophils % 82.6 H Lymphocytes % 12.9 L Monocytes % 3.9 Eosinophils % 0.0 Basophils % 0.6 Absolute Neutrophils 5.6 Absolute Lymphocytes 0.9 Absolute Monocytes 0.3 Absolute Eosinophils 0.0 Absolute Basophils 0.0 Carbonic Acid 2.14 H HCO3/H2CO3 Ratio 20:1 ABG pH 7.40 ABG pCO2 71.2 H* ABG pO2 63.3 L ABG HCO3 43.2 H ABG O2 Saturation 91.3 L ABG Base Excess 14.7 FiO2 60% Sodium 133.9 L Potassium 5.3 H Chloride 88 L Carbon Dioxide 39 H Anion Gap 7 BUN 19 Creatinine 0.64 Est GFR ( Amer) > 60 Est GFR (Non-Af Amer) > 60 Glucose 334 H Calcium 8.6 Phosphorus 1.5 L Magnesium 2.0 Total Bilirubin 0.8 AST 20 ALT 31 Alkaline Phosphatase 63 Total Protein 6.4 Albumin 3.3 L TSH 07/29/18 07/29/18 07/29/18 02:16 05:45 08:45 WBC 7.8 RBC 4.26 L Hgb 13.4 L Hct 41.7 MCV 98 H MCH 31.4 MCHC 32.0 RDW 14.6 H Plt Count 165 Seg Neutrophils % Lymphocytes % Monocytes % Eosinophils % Basophils % Absolute Neutrophils Absolute Lymphocytes Absolute Monocytes Absolute Eosinophils Absolute Basophils Carbonic Acid 1.86 H HCO3/H2CO3 Ratio 20:1 ABG pH 7.40 ABG pCO2 61.8 H ABG pO2 75.6 L ABG HCO3 37.8 H ABG O2 Saturation 94.8 ABG Base Excess 10.5 FiO2 60% Sodium Potassium Chloride Carbon Dioxide Anion Gap BUN Creatinine Est GFR ( Amer) Est GFR (Non-Af Amer) Glucose Calcium Phosphorus Magnesium Total Bilirubin AST ALT Alkaline Phosphatase Total Protein Albumin TSH 1.39 07/29/18 07/29/18 07/29/18 08:45 08:45 10:10 WBC RBC Hgb Hct MCV MCH MCHC RDW Plt Count Seg Neutrophils % Lymphocytes % Monocytes % Eosinophils % Basophils % Absolute Neutrophils Absolute Lymphocytes Absolute Monocytes Absolute Eosinophils Absolute Basophils Carbonic Acid 1.66 H HCO3/H2CO3 Ratio 24:1 ABG pH 7.49 H ABG pCO2 55.1 H ABG pO2 74.3 L ABG HCO3 41.2 H ABG O2 Saturation 95.6 ABG Base Excess 15.2 FiO2 60% Sodium 133.4 L Potassium 5.1 H Chloride 88 L Carbon Dioxide 41 H* Anion Gap 4 L BUN 20 Creatinine 0.65 Est GFR ( Amer) > 60 Est GFR (Non-Af Amer) > 60 Glucose 332 H Calcium 8.5 Phosphorus Magnesium 2.2 Total Bilirubin AST ALT Alkaline Phosphatase Total Protein Albumin TSH 0.22 L 07/28/18 07/29/18 07/29/18 19:30 02:16 08:45 CK-MB (CK-2) 2.56 Troponin I 0.472 0.593 0.448 Impressions: Head CT 07/28/18 14:04 IMPRESSION: Motion artifact. No acute changes. EVIDENCE OF ACUTE STROKE: NO. Chest/Abdomen CTA 07/28/18 15:09 IMPRESSION: Bibasilar consolidation in the right and left posterior costophrenic sulci, atelectasis versus pneumonia No CT angio evidence of acute pulmonary emboli or thoracic aortic dissection Chest X-Ray 07/29/18 06:00 IMPRESSION: NO SIGNIFICANT CHANGE IN APPEARANCE OF THE CHEST. Assessment & Plan - Diagnosis (1) Elevated troponin I level Is this a current diagnosis for this admission?: Yes (2) Hypercapnic respiratory failure Qualifiers: Chronicity: acute Qualified Code(s): J96.02 - Acute respiratory failure with hypercapnia Is this a current diagnosis for this admission?: Yes (3) Abnormal electrocardiogram Is this a current diagnosis for this admission?: Yes (4) Congestive heart failure Qualifiers: Heart failure type: unspecified Is this a current diagnosis for this admission?: Yes (5) Acute respiratory failure with hypoxia and hypercapnia Is this a current diagnosis for this admission?: Yes (6) Non-STEMI (non-ST elevated myocardial infarction) Is this a current diagnosis for this admission?: Yes - Notes Notes: Telemetry strip shows sinus rhythm without any sustained tachyarrhythmia or bradycardia arrhythmia. Have ordered a 2D echo to help with management. This will further risk stratify patient. Elevated troponin I: Most likely related to severe hypoxemia and hypercarbia along with acidosis. However patient does have some EKG changes and this along with troponin I being high, would recommend treating patient as ACS with heparin aspirin, statins etc. Recommend maintaining good oxygenation and vital signs. Abnormal electrocardiogram: Probably related to LVH but could well be from metabolic abnormalities. Cannot rule out underlying CAD. Will recommend a 2D echo to be performed. 2D echo ordered stat for this morning. Non-STEMI: Patient qualifies for this diagnosis based on EKG changes and troponin I elevation. However it is difficult to say for sure whether it is to ACS related or related to metabolic reasons. It is best to to treat him as ACS and see how things sánchez out. Continue to monitor EKGs. CHF: Patient will benefit from being kept on the dry side. Recommend IV Lasix intermittently. Acute respiratory failure with both hypoxemia and hypercapnia: Agree with expeditious intubation and artificial ventilation. Obesity: Patient will benefit from gradual weight loss. Sleep apnea syndrome: Patient's says that patient is on CPAP therapy. Currently patient is intubated. - Time Time with patient: Greater than 35 minutes - CODE STATUS was discussed, patient remains full code. Surrogate decision-maker unchanged. Multiple medical problems were addressed. More than 50% of the time spent coordinating care, discussing management plans with involved caregivers. Management plans discussed with involved personnels. Medical decision making was of moderate to high complexity, patient's has multiple comorbidities. Medications reviewed and adjusted accordingly: Yes
--- NOTE | 2018-07-29 13:17 | XCELERA REPORT ---
[address] [address] Transthoracic Echocardiogram Report Name: ROD PRATHER Age: 63 yrs Gender: Male : 1955 Patient Status: Inpatient Patient Location: ICU^608^A Study Date: 07/29/2018 11:31 AM Height: 74 in Weight: 346 lb BSA: 2.7 m2 Procedure: A complete two-dimensional transthoracic echocardiogram was performed (2D, M-mode, spectral and color flow Doppler). The study was technically difficult with many images being suboptimal in quality. Reason For Study: NSTEMI Ordering Physician: ERIN CASEY Performed By: Faustino Parham Interpretation Summary The study was technically difficult with many images being suboptimal in quality. The left ventricular ejection fraction is preserved. Consider additional methods to assess LVEF such as MUGA scan, CTA heart, cardiac MRI, CHRISTOPHER, etc. if clinically indicated. The left ventricle is grossly normal size. There is mild to moderate concentric left ventricular hypertrophy. Regional wall motion abnormalities cannot be excluded due to limited visualization. Doppler measurements suggest pseudonormalized left ventricular relaxation, which is associated with grade II/IV or mild to moderate diastolic dysfunction The right ventricle is mild to moderately dilated. Right ventricular function cannot be assessed due to poor image quality. The right atrium is mild to moderately dilated. The left atrium is moderately dilated. There is no mitral valve stenosis. There is no mitral regurgitation noted. There is no aortic valve stenosis No aortic regurgitation is present. There is a trace or physiologic amount of tricuspid regurgitation Tricuspid regurgitation jet envelope not well defined to measure RV systolic pressure accurately. The aortic root is not well visualized but is probably normal size. The inferior vena cava appeared normal and decreased < 50% with respiration (RAP 10-15 mmHg) There is no pericardial effusion. MMode/2D Measurements & Calculations RVDd: 3.9 cm LVIDd: 5.5 cm FS: 21.1 % Ao root diam: 4.0 cm IVSd: 1.3 cm LVIDs: 4.3 cm EDV(Teich): 147.7 ml Ao root area: 12.8 cm2 LVPWd: 1.3 cm ESV(Teich): 84.9 ml LA dimension: 4.3 cm EF(Teich): 42.5 % Doppler Measurements & Calculations MV E max lisa: MV P1/2t max lisa: Ao V2 max: LV V1 max P.5 cm/sec 86.3 cm/sec 133.0 cm/sec 4.2 mmHg MV A max lisa: MV P1/2t: 94.0 msec Ao max P.1 mmHgLV V1 max: 67.5 cm/sec MVA(P1/2t): 2.3 cm2 102.2 cm/sec MV E/A: 1.1 MV dec slope: 269.0 cm/sec2 MV dec time: 0.28 sec PA V2 max: TR max lisa: MV P1/2t-pr_phl: 101.2 cm/sec 204.1 cm/sec 94.0 msec PA max P.1 mmHgTR max P.7 mmHg Left Ventricle The left ventricle is grossly normal size. There is mild to moderate concentric left ventricular hypertrophy. The left ventricular ejection fraction is preserved. Consider additional methods to assess LVEF such as MUGA scan, CTA heart, cardiac MRI, CHRISTOPHER, etc. if clinically indicated. Doppler measurements suggest pseudonormalized left ventricular relaxation, which is associated with grade II/IV or mild to moderate diastolic dysfunction. Regional wall motion abnormalities cannot be excluded due to limited visualization. Right Ventricle The right ventricle is mild to moderately dilated. Right ventricular function cannot be assessed due to poor image quality. Atria The right atrium is mild to moderately dilated. The left atrium is moderately dilated. Interarterial septum not well visualized and not well dopplered. Cannot comment on ASD/PFO presence. Mitral Valve The mitral valve is not well visualized. There is no mitral valve stenosis. There is no mitral regurgitation noted. Aortic Valve The aortic valve is not well visualized secondary to technical limitations. There is no aortic valve stenosis. No aortic regurgitation is present. Tricuspid Valve The tricuspid valve is not well visualized secondary to technical limitations. There is no tricuspid stenosis. There is a trace or physiologic amount of tricuspid regurgitation. Tricuspid regurgitation jet envelope not well defined to measure RV systolic pressure accurately. Pulmonic Valve The pulmonic valve is not well visualized. Great Vessels The aortic root is not well visualized but is probably normal size. The inferior vena cava appeared normal and decreased < 50% with respiration (RAP 10-15 mmHg). Effusions There is no pericardial effusion. : ERIN CASEY > Erin Casey
[2018-07-29] MEDS: METHYLPREDNISOLONE INJ 40 MG/1 ML SDV IV SCH ×2 (14:38→21:55)
--- NOTE | 2018-07-29 16:27 | PDOC PROGRESS REPORT ---
Subjective Progress Note for:: 07/29/18 Subjective:: ROD PRATHER is a 63 year old male who is intubated and on mechanical ventilator. 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 He has chronic respiratory failure on 4 L oxygen per nasal cannula continuously at home during the day and uses CPAP at night. He has been progressive more dyspneic over the course of the last 2 weeks. He has a history of intubation in the past. In the emergency room he was found to be mildly acidotic with a pH of 7.28 and a PCO2 of 91, thus he was placed on BiPAP and his repeat blood gases showed a pH of 7.18 with a PCO2 of 132. Patient was then intubated due to CO2 retention. He was also noted to have mildly elevated troponin levels which were felt to be due to his acute respiratory failure per input from Dr. Garland for cardiology. A chest CTA was negative for PE but was positive for bibasilar consolidations. The remote sensing specialist Dr. Cortez was called and he will participate in the patient's management in the ICU. 07/29/18: Mr. Prather remains on ventilatory support in the ICU. His pulmonary status has improved with his PCO2 dropping and his pH increasing. His oxygenation status is remaining stable with levels just slightly below normal. His vital signs have remained stable and he has been started on a very aggressive pulmonary toilet. He is receiving IV steroids as well as empiric IV antibiotics. If his respiratory status continues to improve he may be able to be extubated tomorrow. That final decision will be left to Dr. Cortez. Reason For Visit: ACUTE HYPOXIC,HYPERCAPNIC RESPIRATORY FAILURE, Physical Exam Vital Signs: Temp Pulse Resp BP Pulse Ox 97.2 F 63 14 89/66 L 93 07/29/18 15:16 07/29/18 14:00 07/29/18 15:16 07/29/18 15:16 07/29/18 15:16 Intake & Output 07/28/18 07/29/18 07/30/18 06:59 06:59 06:59 Intake Total 636 712 Output Total 1340 1100 Balance -704 -388 Weight 157.3 kg General appearance: PRESENT: no acute distress, morbidly obese, other - Intubated and on ventilatory support. Head exam: PRESENT: atraumatic, normocephalic Eye exam: PRESENT: conjunctiva pink. ABSENT: nystagmus, periorbital swelling, scleral icterus Ear exam: PRESENT: normal external ear exam. ABSENT: drainage Mouth exam: PRESENT: neck supple, other - ET tube in good position Neck exam: ABSENT: thyromegaly, tracheal deviation Respiratory exam: PRESENT: symmetrical, other - Good breath sounds in all wills with ventilator function.. ABSENT: rales, rhonchi Cardiovascular exam: PRESENT: RRR, tachycardia - 115. ABSENT: clicks, diastolic murmur, gallop, rubs, systolic murmur Pulses: PRESENT: normal carotid pulses, normal radial pulses, normal dorsalis pedis pul Vascular exam: PRESENT: normal capillary refill. ABSENT: pallor GI/Abdominal exam: PRESENT: normal bowel sounds, soft. ABSENT: distended Rectal exam: PRESENT: deferred Extremities exam: PRESENT: pedal edema. ABSENT: clubbing, joint swelling Musculoskeletal exam: ABSENT: deformity, dislocation Neurological exam: PRESENT: reflexes normal, other - Intubated and on mechanical ventilation Psychiatric exam: PRESENT: other - Unable to assess Skin exam: ABSENT: jaundice, rash, urticaria Results Laboratory Results: 07/29/18 08:45 07/29/18 08:45 07/28/18 07/29/18 07/29/18 23:10 02:16 02:16 WBC 6.8 RBC 4.29 L Hgb 13.7 Hct 42.8 MCV 100 H MCH 31.9 MCHC 32.0 RDW 14.9 H Plt Count 157 Seg Neutrophils % 82.6 H Lymphocytes % 12.9 L Monocytes % 3.9 Eosinophils % 0.0 Basophils % 0.6 Absolute Neutrophils 5.6 Absolute Lymphocytes 0.9 Absolute Monocytes 0.3 Absolute Eosinophils 0.0 Absolute Basophils 0.0 Carbonic Acid 2.14 H HCO3/H2CO3 Ratio 20:1 ABG pH 7.40 ABG pCO2 71.2 H* ABG pO2 63.3 L ABG HCO3 43.2 H ABG O2 Saturation 91.3 L ABG Base Excess 14.7 FiO2 60% Sodium 133.9 L Potassium 5.3 H Chloride 88 L Carbon Dioxide 39 H Anion Gap 7 BUN 19 Creatinine 0.64 Est GFR ( Amer) > 60 Est GFR (Non-Af Amer) > 60 Glucose 334 H Calcium 8.6 Phosphorus 1.5 L Magnesium 2.0 Total Bilirubin 0.8 AST 20 ALT 31 Alkaline Phosphatase 63 Total Protein 6.4 Albumin 3.3 L TSH 07/29/18 07/29/18 07/29/18 02:16 05:45 08:45 WBC 7.8 RBC 4.26 L Hgb 13.4 L Hct 41.7 MCV 98 H MCH 31.4 MCHC 32.0 RDW 14.6 H Plt Count 165 Seg Neutrophils % Lymphocytes % Monocytes % Eosinophils % Basophils % Absolute Neutrophils Absolute Lymphocytes Absolute Monocytes Absolute Eosinophils Absolute Basophils Carbonic Acid 1.86 H HCO3/H2CO3 Ratio 20:1 ABG pH 7.40 ABG pCO2 61.8 H ABG pO2 75.6 L ABG HCO3 37.8 H ABG O2 Saturation 94.8 ABG Base Excess 10.5 FiO2 60% Sodium Potassium Chloride Carbon Dioxide Anion Gap BUN Creatinine Est GFR ( Amer) Est GFR (Non-Af Amer) Glucose Calcium Phosphorus Magnesium Total Bilirubin AST ALT Alkaline Phosphatase Total Protein Albumin TSH 1.39 07/29/18 07/29/18 07/29/18 08:45 08:45 10:10 WBC RBC Hgb Hct MCV MCH MCHC RDW Plt Count Seg Neutrophils % Lymphocytes % Monocytes % Eosinophils % Basophils % Absolute Neutrophils Absolute Lymphocytes Absolute Monocytes Absolute Eosinophils Absolute Basophils Carbonic Acid 1.66 H HCO3/H2CO3 Ratio 24:1 ABG pH 7.49 H ABG pCO2 55.1 H ABG pO2 74.3 L ABG HCO3 41.2 H ABG O2 Saturation 95.6 ABG Base Excess 15.2 FiO2 60% Sodium 133.4 L Potassium 5.1 H Chloride 88 L Carbon Dioxide 41 H* Anion Gap 4 L BUN 20 Creatinine 0.65 Est GFR ( Amer) > 60 Est GFR (Non-Af Amer) > 60 Glucose 332 H Calcium 8.5 Phosphorus Magnesium 2.2 Total Bilirubin AST ALT Alkaline Phosphatase Total Protein Albumin TSH 0.22 L 07/28/18 07/29/18 07/29/18 19:30 02:16 08:45 CK-MB (CK-2) 2.56 Troponin I 0.472 0.593 0.448 Impressions: Head CT 07/28/18 14:04 IMPRESSION: Motion artifact. No acute changes. EVIDENCE OF ACUTE STROKE: NO. Chest/Abdomen CTA 07/28/18 15:09 IMPRESSION: Bibasilar consolidation in the right and left posterior costophrenic sulci, atelectasis versus pneumonia No CT angio evidence of acute pulmonary emboli or thoracic aortic dissection Chest X-Ray 07/29/18 06:00 IMPRESSION: NO SIGNIFICANT CHANGE IN APPEARANCE OF THE CHEST. Assessment & Plan - Diagnosis (1) Acute on chronic respiratory failure Qualifiers: Respiratory failure complication: hypoxia and hypercapnia Qualified Code(s) : J96.21 - Acute and chronic respiratory failure with hypoxia; J96.22 - Acute and chronic respiratory failure with hypercapnia; J96.22 - Acute and chronic respiratory failure with hypercapnia; J96.22 - Acute and chronic respiratory failure with hypercapnia Is this a current diagnosis for this admission?: Yes Plan: Patient is admitted with an endotracheal tube in place and on ventilatory support. He will be managed in the intensive care unit with cardiology and pulmonary medicine consulting. Weaning the patient from ventilatory support as soon as possible is important given his underlying chronic respiratory failure status. (2) COPD exacerbation Is this a current diagnosis for this admission?: Yes Plan: Patient will be treated with an aggressive pulmonary toilet as well as IV steroids and empiric IV antibiotics. (3) Diastolic CHF, chronic Is this a current diagnosis for this admission?: Yes Plan: Patient's will be managed by reinstating his usual therapeutic regiment when he is able to take oral medications. In the meantime he will be observed closely in the ICU and intervention will be provided as required. (4) Elevated troponin I level Is this a current diagnosis for this admission?: Yes Plan: The patient's elevated troponin level was judged by cardiology to not be significant for ischemia or cardiac injury. Rather this elevated troponin level was felt to be due to his acute on chronic respiratory failure. (5) DAWNA (obstructive sleep apnea) Is this a current diagnosis for this admission?: Yes Plan: When the patient is extubated he will be treated with his usual nocturnal CPAP at the appropriate settings. - Time Time Spent with patient: 35 or more minutes Medications reviewed and adjusted accordingly: Yes
[2018-07-29] MEDS ORDERED: CEFTRIAXONE 1 GM/D5W RTU 1 GM/50 ML RTUPB IV SCH (18:00)
[2018-07-29 19:43] LABS: FREE T3 2.19 pg/mL (2.77-5.27); FREE T4 (FREE THYROXINE) 0.82 ng/dL (0.78-2.19)
[2018-07-29] MEDS: ATORVASTATIN CALCIUM 20 MG TABLET PO SCH (22:47)
[2018-07-30] MEDS: LEVALBUTEROL HCL NEB 1.25 MG/3 ML AMPUL NEB SCH ×3 (00:15→16:17)
[2018-07-30] MEDS: IPRATROPIUM BROMIDE 0.02% NEB 0.5 MG/2.5 ML AMPUL NEB SCH ×3 (00:15→16:17)
[2018-07-30] MEDS: INSULIN LISPRO 100 UNIT/ML 3 ML VIAL SUBCUT PRN ×7 (00:46→23:53)
[2018-07-30] MEDS: PROPOFOL 1,000 MG/100 ML INFUS..BTL IV PRN ×12 (00:48→22:56)
[2018-07-30 04:23] LABS: HEMOGLOBIN 13.7 g/dL (13.5-17.0); MEAN CORPUSCULAR HEMOGLOBIN 31.9 pg (27.0-33.4); MEAN CORPUSCULAR HGB CONC 32.5 g/dL (32.0-36.0); MEAN CORPUSCULAR VOLUME 98 fl (80-97); PLATELET COUNT 169 10^3/uL (150-450); RED BLOOD COUNT 4.29 10^6/uL (4.35-5.55); RED CELL DISTRIBUTION WIDTH 14.8 % (11.5-14.0); WHITE BLOOD COUNT 10.5 10^3/uL (4.0-10.5)
[2018-07-30] MEDS: METHYLPREDNISOLONE INJ 40 MG/1 ML SDV IV SCH ×2 (06:20→17:40)
[2018-07-30 06:28] LABS: ARTERIAL BLOOD BASE EXCESS 15.3 mmol/L; ARTERIAL BLOOD H2CO3 1.69 mmol/L (1.05-1.35); ARTERIAL BLOOD HCO3 41.4 mmol/L (20-24); ARTERIAL BLOOD O2 SATURATION 95.5 % (94-98); ARTERIAL BLOOD PH 7.49 (7.35-7.45); ARTERIAL BLOOD PO2 73.6 mmHg (80-100); ARTERIAL BLOOD TOTAL CO2 43.2 mmol/L (23-27)
[2018-07-30 06:30] LABS: ARTERIAL BLOOD FIO2 60%
[2018-07-30 06:43] LABS: BLOOD UREA NITROGEN 24 mg/dL (7-20); CALCIUM 8.4 mg/dL (8.4-10.2); CHLORIDE 89 mmol/L (98-107); GLUCOSE 318 mg/dL (75-110); POTASSIUM 4.4 mmol/L (3.6-5.0); SODIUM 135.2 mmol/L (137-145)
[2018-07-30 07:12] LABS: CARBON DIOXIDE 42 mmol/L (22-30)
[2018-07-30 07:26] LABS: ANION GAP 4 (5-19)
--- NOTE | 2018-07-30 08:46 | EKG REPORT ---
SEVERITY:- ABNORMAL ECG - SINUS RHYTHM NONSPECIFIC T ABNORMALITIES, ANT-LAT LEADS BORDERLINE PROLONGED QT INTERVAL : Confirmed by: Erin Garland 30-Jul-2018 08:45:13
--- NOTE | 2018-07-30 08:57 | RADIOLOGY REPORT (SQ) ---
EXAM DESCRIPTION: CHEST SINGLE VIEW COMPLETED DATE/TIME: 07/30/2018 8:17 am REASON FOR STUDY: intubated COMPARISON: 07/29/2018. EXAM PARAMETERS: NUMBER OF VIEWS: One view. TECHNIQUE: Single frontal radiographic view of the chest acquired. RADIATION DOSE: NA LIMITATIONS: None. FINDINGS: LUNGS AND PLEURA: Stable patchy bibasilar densities, left more so than right. MEDIASTINUM AND HILAR STRUCTURES: No masses. Contour normal. HEART AND VASCULAR STRUCTURES: Heart normal in size. Normal vasculature. BONES: No acute findings. HARDWARE: Endotracheal tube is again identified, stable finding. As on the prior examination, the d istal tip of the nasogastric tube is not well visualized. OTHER: No other significant finding. IMPRESSION: 1. Stable examination of the chest since the prior study dated 07/29/2018. TECHNICAL DOCUMENTATION: JOB ID: [id number] [employer]- All Rights Reserved Reading location - IP/workstation name: [email or web address]
[2018-07-30] MEDS: PANTOPRAZOLE SODIUM 40 MG VIAL IV SCH ×2 (10:05→21:08)
[2018-07-30] MEDS: LEVOFLOXACIN 750 MG/D5W RTU 750 MG/150 ML RTUPB IV SCH (10:07)
[2018-07-30] MEDS: FUROSEMIDE INJ/PF 40 MG/4 ML SDV IV SCH (10:07)
--- NOTE | 2018-07-30 10:36 | PDOC PROGRESS REPORT ---
Subjective Progress Note for:: 07/30/18 Subjective:: ROD PRATHER is a 63 year old male who is intubated and on mechanical ventilator. 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 He has chronic respiratory failure on 4 L oxygen per nasal cannula continuously at home during the day and uses CPAP at night. He has been progressive more dyspneic over the course of the last 2 weeks. He has a history of intubation in the past. In the emergency room he was found to be mildly acidotic with a pH of 7.28 and a PCO2 of 91, thus he was placed on BiPAP and his repeat blood gases showed a pH of 7.18 with a PCO2 of 132. Patient was then intubated due to CO2 retention. He was also noted to have mildly elevated troponin levels which were felt to be due to his acute respiratory failure per input from Dr. Esquivel for cardiology. A chest CTA was negative for PE but was positive for bibasilar consolidations. The center punch operator Dr. Cortez was called and he will participate in the patient's management in the ICU. 07/29/18: Mr. Prather remains on ventilatory support in the ICU. His pulmonary status has improved with his PCO2 dropping and his pH increasing. His oxygenation status is remaining stable with levels just slightly below normal. His vital signs have remained stable and he has been started on a very aggressive pulmonary toilet. He is receiving IV steroids as well as empiric IV antibiotics. If his respiratory status continues to improve he may be able to be extubated tomorrow. That final decision will be left to Dr. Cortez. 07/30/18: Mr. Prather remains intubated and on ventilator support in the intensive care unit. His pulmonary status has plateaued with a pH of 7.49 PCO2 in the mid 50s and a PO2 in the mid 70s. He is tolerating the ventilator support very well and his examination is essentially unchanged since yesterday. Breath sounds with the ventilator are clear. Vital signs remained stable. Pulmonology is managing his ventilator needs. Cardiology is being managed by Dr. Esquivel. Patient's dose of IV Solu-Medrol was reduced to 40 mg every 12 hours for the next 24 hours and his pantoprazole was increased to 40 mg IV twice daily. His blood sugars remain elevated to the use of IV steroids and a sliding scale is in place to manage this. Reason For Visit: ACUTE HYPOXIC,HYPERCAPNIC RESPIRATORY FAILURE, Physical Exam Vital Signs: Temp Pulse Resp BP Pulse Ox 99.1 F 63 19 98/65 L 94 07/30/18 06:05 07/30/18 08:05 07/30/18 08:05 07/30/18 06:05 07/30/18 08:05 Intake & Output 07/29/18 07/30/18 07/31/18 06:59 06:59 06:59 Intake Total 636 1393 186 Output Total 1340 3045 200 Balance -704 -1652 -14 Weight 157.3 kg 150.6 kg General appearance: PRESENT: no acute distress, other Head exam: PRESENT: atraumatic, normocephalic Eye exam: PRESENT: conjunctiva pink. ABSENT: conjunctival injection, periorbital swelling, scleral icterus Ear exam: PRESENT: normal external ear exam. ABSENT: drainage Mouth exam: PRESENT: dry mucosa, neck supple Neck exam: ABSENT: thyromegaly, tracheal deviation Respiratory exam: PRESENT: clear to auscultation adam - On the ventilator, other - On ventilatory support Cardiovascular exam: PRESENT: RRR. ABSENT: bradycardia, clicks, diastolic murmur, gallop, rubs, tachycardia Pulses: PRESENT: normal radial pulses, normal dorsalis pedis pul Vascular exam: PRESENT: normal capillary refill. ABSENT: pallor GI/Abdominal exam: PRESENT: normal bowel sounds, soft Rectal exam: PRESENT: deferred Extremities exam: PRESENT: pedal edema - Trace bilaterally. ABSENT: joint swelling Musculoskeletal exam: ABSENT: deformity, dislocation Neurological exam: PRESENT: altered - Sedated for intubation and ventilation, reflexes normal Psychiatric exam: PRESENT: other - Sedated for intubation and ventilation and cannot be further assessed Skin exam: ABSENT: jaundice, rash, urticaria Results Laboratory Results: 07/30/18 04:01 07/30/18 05:47 07/29/18 07/29/18 07/29/18 08:45 08:45 08:45 WBC RBC Hgb Hct MCV MCH MCHC RDW Plt Count Carbonic Acid HCO3/H2CO3 Ratio ABG pH ABG pCO2 ABG pO2 ABG HCO3 ABG O2 Saturation ABG Base Excess FiO2 Sodium 133.4 L Potassium 5.1 H Chloride 88 L Carbon Dioxide 41 H* Anion Gap 4 L BUN 20 Creatinine 0.65 Est GFR ( Amer) > 60 Est GFR (Non-Af Amer) > 60 Glucose 332 H Calcium 8.5 Magnesium 2.2 TSH 0.22 L Free T4 0.82 Free T3 pg/mL 2.19 L 07/29/18 07/30/18 07/30/18 10:10 04:01 04:01 WBC 10.5 RBC 4.29 L Hgb 13.7 Hct 42.0 MCV 98 H MCH 31.9 MCHC 32.5 RDW 14.8 H Plt Count 169 Carbonic Acid 1.66 H HCO3/H2CO3 Ratio 24:1 ABG pH 7.49 H ABG pCO2 55.1 H ABG pO2 74.3 L ABG HCO3 41.2 H ABG O2 Saturation 95.6 ABG Base Excess 15.2 FiO2 60% Sodium Cancelled Potassium Cancelled Chloride Cancelled Carbon Dioxide Cancelled Anion Gap Cancelled BUN Cancelled Creatinine Cancelled Est GFR ( Amer) Cancelled Est GFR (Non-Af Amer) Cancelled Glucose Cancelled Calcium Cancelled Magnesium Cancelled TSH Free T4 Free T3 pg/mL 07/30/18 07/30/18 05:47 05:58 WBC RBC Hgb Hct MCV MCH MCHC RDW Plt Count Carbonic Acid 1.69 H HCO3/H2CO3 Ratio 24:1 ABG pH 7.49 H ABG pCO2 56.0 H ABG pO2 73.6 L ABG HCO3 41.4 H ABG O2 Saturation 95.5 ABG Base Excess 15.3 FiO2 60% Sodium 135.2 L Potassium 4.4 Chloride 89 L Carbon Dioxide 42 H* Anion Gap 4 L BUN 24 H Creatinine 0.68 Est GFR ( Amer) > 60 Est GFR (Non-Af Amer) > 60 Glucose 318 H Calcium 8.4 Magnesium 2.3 TSH Free T4 Free T3 pg/mL 07/28/18 07/29/18 07/29/18 19:30 02:16 08:45 CK-MB (CK-2) 2.56 Troponin I 0.472 0.593 0.448 Impressions: Head CT 07/28/18 14:04 IMPRESSION: Motion artifact. No acute changes. EVIDENCE OF ACUTE STROKE: NO. Chest/Abdomen CTA 07/28/18 15:09 IMPRESSION: Bibasilar consolidation in the right and left posterior costophrenic sulci, atelectasis versus pneumonia No CT angio evidence of acute pulmonary emboli or thoracic aortic dissection Chest X-Ray 07/30/18 06:00 IMPRESSION: 1. Stable examination of the chest since the prior study dated . Assessment & Plan - Diagnosis (1) Acute on chronic respiratory failure Qualifiers: Respiratory failure complication: hypoxia and hypercapnia Qualified Code(s) : J96.21 - Acute and chronic respiratory failure with hypoxia; J96.22 - Acute and chronic respiratory failure with hypercapnia; J96.22 - Acute and chronic respiratory failure with hypercapnia; J96.22 - Acute and chronic respiratory failure with hypercapnia Is this a current diagnosis for this admission?: Yes Plan: Patient is admitted with an endotracheal tube in place and on ventilatory support. He will be managed in the intensive care unit with cardiology and pulmonary medicine consulting. Weaning the patient from ventilatory support as soon as possible is important given his underlying chronic respiratory failure status. Patient's respiratory status is stabilized today, decision for extubation and placing the patient on BiPAP will be left to the center punch operator who is consulting. (2) COPD exacerbation Is this a current diagnosis for this admission?: Yes Plan: Patient will be treated with an aggressive pulmonary toilet as well as IV steroids and empiric IV antibiotics. IV steroids are being weaned gradually as the patient's respiratory status stabilizes. (3) Diastolic CHF, chronic Is this a current diagnosis for this admission?: Yes Plan: Patient's will be managed by reinstating his usual therapeutic regiment when he is able to take oral medications. In the meantime he will be observed closely in the ICU and intervention will be provided as required. (4) Elevated troponin I level Is this a current diagnosis for this admission?: Yes Plan: The patient's elevated troponin level was judged by cardiology to not be significant for ischemia or cardiac injury. Rather this elevated troponin level was felt to be due to his acute on chronic respiratory failure. The troponin has gradually trended upward and seems to have peaked at approximately 0.6 it is now beginning a trend downwards. (5) DAWNA (obstructive sleep apnea) Is this a current diagnosis for this admission?: Yes Plan: When the patient is extubated he will be treated with his usual nocturnal CPAP at the appropriate settings. - Time Time Spent with patient: 35 or more minutes
[2018-07-30] MEDS ORDERED: PROMETHAZINE HCL INJ 25 MG/1 ML VIAL IV PRN (13:00)
--- NOTE | 2018-07-30 13:28 | PDOC CONSULTATION ---
Consultation Consult Date: 07/30/18 Attending physician:: MARY WADE Consult reason:: resp failure History of Present Illness Admission Date/PCP: 07/28/18 18:48 History of Present Illness: ROD PRATHER is a 63 year old male,currently intubated and sedated presented hypoxic hypercapnic and acidotic was at home history of poor compliance with o2 and home meds Past Medical History Cardiac Medical History: Reports: Congestive Heart Failure, Hypertension Pulmonary Medical History: Reports: Chronic Obstructive Pulmonary Disease (COPD) , Sleep Apnea Past Surgical History Past Surgical History: Reports: Orthopedic Surgery Social History Information Source: [facility] Records Smoking Status: Unknown if Ever Smoked Last Time Smoked: 2015 Frequency of Alcohol Use: None Hx Recreational Drug Use: No Hx Prescription Drug Abuse: No - Advance Directive Resuscitation Status: Full Code Family History Family History: Hypertension Parental Family History Reviewed: No Children Family History Reviewed: No Sibling(s) Family History Reviewed.: No Medication/Allergy Home Medications: Apixaban [Eliquis] 5 mg PO Q12 07/29/18 Aspirin [Aspirin 81 mg Chewable Tablet] 81 mg PO DAILY 07/29/18 Atorvastatin Calcium [Lipitor 40 mg Tablet] 40 mg PO QHS 07/29/18 Ergocalciferol (Vitamin D2) [Drisdol 50,000 unit (1.25MG) Capsule] 50,000 unit PO MO@1000 07/29/18 Furosemide [Lasix 20 mg Tablet] 10 mg PO DAILY 07/29/18 Metoprolol Succinate [Toprol Xl 25 mg Tab.sr] 25 mg PO DAILY 07/29/18 Omeprazole 20 mg PO DAILY 07/29/18 Tiotropium Guffey [Spiriva Handihaler 5 Cap/Kit (18 Mcg/Cap)] 1 puff IH DAILY 07/29/18 Allergies/Adverse Reactions: Penicillins Allergy (Verified 12/03/16 12:06) Review of Systems ROS unobtainable: Due to endotracheal tube Physical Exam Vital Signs: Temp Pulse Resp BP Pulse Ox 99.1 F 63 19 98/65 L 94 07/30/18 06:05 07/30/18 08:05 07/30/18 08:05 07/30/18 06:05 07/30/18 08:05 Intake & Output 07/29/18 07/30/18 07/31/18 06:59 06:59 06:59 Intake Total 636 1393 86 Output Total 0382 5961 Balance -656 -5327 86 Weight 157.3 kg 150.6 kg General appearance: PRESENT: no acute distress, disheveled, morbidly obese. ABSENT: cooperative Head exam: PRESENT: atraumatic, normocephalic Eye exam: PRESENT: conjunctiva pale. ABSENT: nystagmus, periorbital swelling, scleral icterus Mouth exam: PRESENT: dry mucosa, neck supple, tongue midline, other - ET tube Neck exam: ABSENT: carotid bruit, JVD, lymphadenopathy, thyromegaly, tracheal deviation, tracheostomy Respiratory exam: PRESENT: decreased breath sounds, prolonged expiratory phas, rales, rhonchi, symmetrical, unlabored. ABSENT: retraction, stridor, tachypnea Cardiovascular exam: PRESENT: RRR, +S1, +S2 Pulses: PRESENT: normal radial pulses GI/Abdominal exam: PRESENT: hypoactive bowel sounds, soft. ABSENT: tenderness Gentrourinary exam: PRESENT: indwelling catheter Extremities exam: ABSENT: clubbing, joint swelling Musculoskeletal exam: ABSENT: ambulatory, deformity, dislocation Neurological exam: ABSENT: awake Skin exam: PRESENT: dry, warm Results Laboratory Results: 07/30/18 04:01 07/30/18 05:47 07/29/18 07/29/18 07/29/18 08:45 08:45 08:45 WBC 7.8 RBC 4.26 L Hgb 13.4 L Hct 41.7 MCV 98 H MCH 31.4 MCHC 32.0 RDW 14.6 H Plt Count 165 Carbonic Acid HCO3/H2CO3 Ratio ABG pH ABG pCO2 ABG pO2 ABG HCO3 ABG O2 Saturation ABG Base Excess FiO2 Sodium 133.4 L Potassium 5.1 H Chloride 88 L Carbon Dioxide 41 H* Anion Gap 4 L BUN 20 Creatinine 0.65 Est GFR ( Amer) > 60 Est GFR (Non-Af Amer) > 60 Glucose 332 H Calcium 8.5 Magnesium 2.2 TSH 0.22 L Free T4 Free T3 pg/mL 07/29/18 07/29/18 07/30/18 08:45 10:10 04:01 WBC 10.5 RBC 4.29 L Hgb 13.7 Hct 42.0 MCV 98 H MCH 31.9 MCHC 32.5 RDW 14.8 H Plt Count 169 Carbonic Acid 1.66 H HCO3/H2CO3 Ratio 24:1 ABG pH 7.49 H ABG pCO2 55.1 H ABG pO2 74.3 L ABG HCO3 41.2 H ABG O2 Saturation 95.6 ABG Base Excess 15.2 FiO2 60% Sodium Potassium Chloride Carbon Dioxide Anion Gap BUN Creatinine Est GFR ( Amer) Est GFR (Non-Af Amer) Glucose Calcium Magnesium TSH Free T4 0.82 Free T3 pg/mL 2.19 L 07/30/18 07/30/18 07/30/18 04:01 05:47 05:58 WBC RBC Hgb Hct MCV MCH MCHC RDW Plt Count Carbonic Acid 1.69 H HCO3/H2CO3 Ratio 24:1 ABG pH 7.49 H ABG pCO2 56.0 H ABG pO2 73.6 L ABG HCO3 41.4 H ABG O2 Saturation 95.5 ABG Base Excess 15.3 FiO2 60% Sodium Cancelled 135.2 L Potassium Cancelled 4.4 Chloride Cancelled 89 L Carbon Dioxide Cancelled 42 H* Anion Gap Cancelled 4 L BUN Cancelled 24 H Creatinine Cancelled 0.68 Est GFR ( Amer) Cancelled > 60 Est GFR (Non-Af Amer) Cancelled > 60 Glucose Cancelled 318 H Calcium Cancelled 8.4 Magnesium Cancelled 2.3 TSH Free T4 Free T3 pg/mL 07/28/18 07/29/18 07/29/18 19:30 02:16 08:45 CK-MB (CK-2) 2.56 Troponin I 0.472 0.593 0.448 Impressions: Head CT 07/28/18 14:04 IMPRESSION: Motion artifact. No acute changes. EVIDENCE OF ACUTE STROKE: NO. Chest/Abdomen CTA 07/28/18 15:09 IMPRESSION: Bibasilar consolidation in the right and left posterior costophrenic sulci, atelectasis versus pneumonia No CT angio evidence of acute pulmonary emboli or thoracic aortic dissection Assessment & Plan - Diagnosis (1) Acute and chronic respiratory failure, unspecified whether with hypoxia or hypercapnia Qualifiers: Respiratory failure complication: hypoxia and hypercapnia Qualified Code(s) : J96.21 - Acute and chronic respiratory failure with hypoxia; J96.22 - Acute and chronic respiratory failure with hypercapnia; J96.22 - Acute and chronic respiratory failure with hypercapnia; J96.22 - Acute and chronic respiratory failure with hypercapnia Is this a current diagnosis for this admission?: Yes Plan: COPD Obesity-Hypoventilation (2) Hypertension Qualifiers: Hypertension type: essential hypertension Qualified Code(s): I10 - Essential (primary) hypertension Is this a current diagnosis for this admission?: Yes (3) NSTEMI (non-ST elevation myocardial infarction) Is this a current diagnosis for this admission?: Yes Plan: as per cardiology (4) DAWNA (obstructive sleep apnea) Is this a current diagnosis for this admission?: Yes Plan: consider bipap with O2 post extubation (5) Polycythemia Is this a current diagnosis for this admission?: Yes Plan: chronic hypoxemia - Time Total Critical Time (Minutes): 65
--- NOTE | 2018-07-30 22:45 | Progress Note ---
Provider Note Provider Note: CARDIOLOGY PROGRESS NOTE by Dr. Carlotta Klein on 07/30/2018. SUBJECTIVE: The patient is intubated and sedated. He appears to be in no acute distress, and is not fighting the ventilator. There is no arrhythmias seen. There is no pedal edema. Physical EXAMINATION: The patient is morbidly obese, in no acute distress. He is intubated and sedated. 07/30/18 07/30/18 15:00 15:05 Temperature 98.2 F Heart Rate ( 67 Monitors) Respiratory 16 Rate O2 Sat by Pulse 95 Oximetry Fraction of 60 Inspired Oxygen (FIO2) HEAD: Is atraumatic normocephalic. EYES: Pupils are equal round regular reactive light accommodation. ENT: Is negative. NECK: Supple there is no JVD carotids are equal there is no bruit. LUNGS: There is a few scattered rhonchi. There is diminished air entry prolonged expiration. There is a few dry crackles of pneumonia in both bases. There is no rales of CHF. HEART: S1-S2 is heard there is no S3 gallop there is no S4 gallop the systolic murmur left sternal border and the apex there is no rub. ABDOMEN: Soft there is no hepatosplenomegaly, and bowel sounds are normal. EXTREMITIES: Femorals are deep , femorals are diminished. There is no femoral bruits. There is no pedal edema. There is no DVT or cellulitis. Leg pulses are diminished. Capillary refill is normal. There is no cyanosis or clubbing. TURN SEWER and PSYCHIATRIC examination not done since the patient is intubated and sedated. 07/30/18 07/30/18 07/30/18 04:01 05:47 05:58 WBC 10.5 RBC 4.29 L Hgb 13.7 Hct 42.0 MCV 98 H MCH 31.9 Plt Count 169 ABG pH 7.49 H ABG pCO2 56.0 H ABG pO2 73.6 L ABG HCO3 41.4 H ABG Total CO2 43.2 H ABG O2 Saturation 95.5 FiO2 60% Sodium 135.2 L Potassium 4.4 Chloride 89 L Carbon Dioxide 42 H* BUN 24 H Creatinine 0.68 Est GFR (Non-Af Amer) > 60 Glucose 318 H Calcium 8.4 Magnesium 2.3 IMPRESSION/RECOMMENDATION: 1.Acute respiratory failure with hypoxemia and hypercapnia. At present patient intubated. Hopefully will be extubated soon. 2, ELEVATED TROPONIN: Most likely secondary to type II MN supply demand mismatch , due to the patient's respiratory failure, pneumonia, as per respiratory acidosis, and hypoxemia. But the patient has multiple risk factor for CAD, and does have an abnormal EKG with anterior T inversion. Hence cannot entirely exclude non-ST elevation MN. Will recheck the patient's troponin I day after tomorrow a.m. We will also repeat the EKG . 3. Abnormal EKG: We will repeat the patient's EKG. data when the patient is stable would recommend the patient have an IV Cardiolite stress test. This can be done as an outpatient. This has been discussed with the patient patient's .. Will recheck the patient's blood pressure and heart rate tomorrow to see if we can maximize the patient's anti-CAD medications. 4. MORBID OBESITY. 5. HYPERTENSION: Blood pressure well controlled. 6. Heart FAILURE: At present compensated. 7. COPD: Continue antibiotics 8. Bibasilar pneumonia: Continue BiPAP and antibiotics. Medications reviewed. Medical decision making is of high complexity. 40 minutes spent on this patient with more than 50% of time spent in direct patient care. Discussed with other caregiving providers on the case.
[2018-07-31] MEDS: IPRATROPIUM BROMIDE 0.02% NEB 0.5 MG/2.5 ML AMPUL NEB SCH ×3 (00:07→15:57)
[2018-07-31] MEDS: LEVALBUTEROL HCL NEB 1.25 MG/3 ML AMPUL NEB SCH ×3 (00:07→15:57)
[2018-07-31] MEDS: PROPOFOL 1,000 MG/100 ML INFUS..BTL IV PRN ×5 (00:46→08:18)
[2018-07-31] MEDS: INSULIN LISPRO 100 UNIT/ML 3 ML VIAL SUBCUT PRN ×5 (04:19→22:56)
[2018-07-31 04:23] LABS: HEMATOCRIT 44.4 % (37.9-51.0); HEMOGLOBIN 14.5 g/dL (13.5-17.0); MEAN CORPUSCULAR HEMOGLOBIN 31.7 pg (27.0-33.4); MEAN CORPUSCULAR HGB CONC 32.7 g/dL (32.0-36.0); MEAN CORPUSCULAR VOLUME 97 fl (80-97); PLATELET COUNT 146 10^3/uL (150-450); RED BLOOD COUNT 4.58 10^6/uL (4.35-5.55); RED CELL DISTRIBUTION WIDTH 15.1 % (11.5-14.0); WHITE BLOOD COUNT 10.2 10^3/uL (4.0-10.5)
[2018-07-31 04:41] LABS: BLOOD UREA NITROGEN 27 mg/dL (7-20); CALCIUM 8.5 mg/dL (8.4-10.2); CHLORIDE 89 mmol/L (98-107); GLUCOSE 301 mg/dL (75-110); POTASSIUM 4.5 mmol/L (3.6-5.0); SODIUM 135.1 mmol/L (137-145)
[2018-07-31 04:51] LABS: ANION GAP 7 (5-19); CARBON DIOXIDE 39 mmol/L (22-30)
[2018-07-31] MEDS: METHYLPREDNISOLONE INJ 40 MG/1 ML SDV IV SCH ×2 (05:43→17:52)
[2018-07-31 06:16] LABS: ARTERIAL BLOOD BASE EXCESS 12.5 mmol/L; ARTERIAL BLOOD H2CO3 1.73 mmol/L (1.05-1.35); ARTERIAL BLOOD HCO3 39.1 mmol/L (20-24); ARTERIAL BLOOD O2 SATURATION 98.1 % (94-98); ARTERIAL BLOOD PCO2 57.5 mmHg (35-45); ARTERIAL BLOOD PH 7.45 (7.35-7.45); ARTERIAL BLOOD PO2 109.1 mmHg (80-100); ARTERIAL BLOOD TOTAL CO2 40.8 mmol/L (23-27)
[2018-07-31 06:17] LABS: ARTERIAL BLOOD FIO2 60%
--- NOTE | 2018-07-31 06:47 | RADIOLOGY REPORT (SQ) ---
EXAM DESCRIPTION: XR CHEST 2 VIEWS COMPLETED DATE/TME: 07/31/2018 06:00 CLINICAL HISTORY: 63 years Male, intubated COMPARISON: One day prior. NUMBER OF VIEWS/TECHNIQUE: 1/AP FINDINGS: Small bibasilar opacity-effusion, mildly enlarged cardiac silhouette, and tracheal tube tip is 5.9 cm from the elda likely adequate enteric tube is partially obscured distally, No pneumothorax. Stable bony thorax. IMPRESSION: No significant change.
[2018-07-31] MEDS: LEVOFLOXACIN 750 MG/D5W RTU 750 MG/150 ML RTUPB IV SCH (09:50)
[2018-07-31] MEDS: PANTOPRAZOLE SODIUM 40 MG VIAL IV SCH ×2 (09:51→22:56)
[2018-07-31] MEDS: FUROSEMIDE INJ/PF 40 MG/4 ML SDV IV SCH (09:51)
[2018-07-31 13:38] LABS: ARTERIAL BLOOD BASE EXCESS 14.8 mmol/L; ARTERIAL BLOOD H2CO3 1.78 mmol/L (1.05-1.35); ARTERIAL BLOOD HCO3 41.7 mmol/L (20-24); ARTERIAL BLOOD O2 SATURATION 96.8 % (94-98); ARTERIAL BLOOD PCO2 59.2 mmHg (35-45); ARTERIAL BLOOD PH 7.47 (7.35-7.45); ARTERIAL BLOOD TOTAL CO2 43.5 mmol/L (23-27)
[2018-07-31 13:41] LABS: ARTERIAL BLOOD FIO2 50%
--- NOTE | 2018-07-31 14:40 | PDOC PROGRESS REPORT ---
Subjective Progress Note for:: 07/31/18 Subjective:: Intubated but arousable Reason For Visit: ACUTE HYPOXIC,HYPERCAPNIC RESPIRATORY FAILURE, Physical Exam Vital Signs: Temp Pulse Resp BP Pulse Ox 99.1 F 75 24 H 129/77 H 94 07/31/18 14:00 07/31/18 14:00 07/31/18 14:00 07/31/18 14:00 07/31/18 14:00 Intake & Output 07/30/18 07/31/18 08/01/18 06:59 06:59 06:59 Intake Total 1393 1408 100 Output Total 3045 2495 2039 Balance -3977 -6331 -3540 Weight 150.6 kg 150.2 kg General appearance: PRESENT: no acute distress, cooperative, disheveled, morbidly obese Head exam: PRESENT: atraumatic, normocephalic Eye exam: PRESENT: conjunctiva pale, EOMI. ABSENT: nystagmus, periorbital swelling, scleral icterus Mouth exam: PRESENT: dry mucosa, neck supple, tongue midline, other - ET tube in place Neck exam: ABSENT: carotid bruit, JVD, lymphadenopathy, thyromegaly, tracheal deviation, tracheostomy Respiratory exam: PRESENT: decreased breath sounds, prolonged expiratory phas, rales, rhonchi, unlabored, wheezes. ABSENT: retraction, stridor Cardiovascular exam: PRESENT: RRR, +S1, +S2 Pulses: PRESENT: normal radial pulses GI/Abdominal exam: PRESENT: hypoactive bowel sounds, soft. ABSENT: tenderness Gentrourinary exam: PRESENT: indwelling catheter Extremities exam: ABSENT: calf tenderness, clubbing, joint swelling, tenderness , +1 edema, +2 edema Musculoskeletal exam: ABSENT: ambulatory, deformity, dislocation Neurological exam: PRESENT: alert, awake Psychiatric exam: PRESENT: flat affect Skin exam: PRESENT: dry, warm Results Laboratory Results: 07/31/18 04:11 07/31/18 04:11 07/31/18 07/31/18 07/31/18 04:11 04:11 06:00 WBC 10.2 RBC 4.58 Hgb 14.5 Hct 44.4 MCV 97 MCH 31.7 MCHC 32.7 RDW 15.1 H Plt Count 146 L Carbonic Acid 1.73 H HCO3/H2CO3 Ratio 22:1 ABG pH 7.45 ABG pCO2 57.5 H ABG pO2 109.1 H ABG HCO3 39.1 H ABG O2 Saturation 98.1 H ABG Base Excess 12.5 FiO2 60% Sodium 135.1 L Potassium 4.5 Chloride 89 L Carbon Dioxide 39 H Anion Gap 7 BUN 27 H Creatinine 0.71 Est GFR ( Amer) > 60 Est GFR (Non-Af Amer) > 60 Glucose 301 H Calcium 8.5 Magnesium 2.5 H 07/31/18 13:20 WBC RBC Hgb Hct MCV MCH MCHC RDW Plt Count Carbonic Acid 1.78 H HCO3/H2CO3 Ratio 23:1 ABG pH 7.47 H ABG pCO2 59.2 H ABG pO2 86.0 ABG HCO3 41.7 H ABG O2 Saturation 96.8 ABG Base Excess 14.8 FiO2 50% Sodium Potassium Chloride Carbon Dioxide Anion Gap BUN Creatinine Est GFR ( Amer) Est GFR (Non-Af Amer) Glucose Calcium Magnesium 07/28/18 23:12 Tracheal Aspirate Gram Stain - Final 07/28/18 23:12 Tracheal Aspirate Sputum Culture - Final NORMAL ROCHELLE 07/28/18 07/29/18 07/29/18 19:30 02:16 08:45 CK-MB (CK-2) 2.56 Troponin I 0.472 0.593 0.448 Impressions: Head CT 07/28/18 14:04 IMPRESSION: Motion artifact. No acute changes. EVIDENCE OF ACUTE STROKE: NO. Chest/Abdomen CTA 07/28/18 15:09 IMPRESSION: Bibasilar consolidation in the right and left posterior costophrenic sulci, atelectasis versus pneumonia No CT angio evidence of acute pulmonary emboli or thoracic aortic dissection Chest X-Ray 07/31/18 06:00 IMPRESSION: No significant change. Assessment & Plan - Diagnosis (1) Acute and chronic respiratory failure, unspecified whether with hypoxia or hypercapnia Qualifiers: Respiratory failure complication: hypoxia and hypercapnia Qualified Code(s) : J96.21 - Acute and chronic respiratory failure with hypoxia; J96.22 - Acute and chronic respiratory failure with hypercapnia; J96.22 - Acute and chronic respiratory failure with hypercapnia; J96.22 - Acute and chronic respiratory failure with hypercapnia Is this a current diagnosis for this admission?: Yes Plan: With minimal increase in PEEP was able to decrease FiO2 15-20% good respiratory rate good minute volume less than 10 reasonable airway pressures will proceed to extubate with BiPAP discussed with patient he agrees that he would rather do that as a possibility of reintubation (2) Hypertension Qualifiers: Hypertension type: essential hypertension Qualified Code(s): I10 - Essential (primary) hypertension Is this a current diagnosis for this admission?: Yes (3) NSTEMI (non-ST elevation myocardial infarction) Is this a current diagnosis for this admission?: Yes Plan: as per cardiology (4) DAWNA (obstructive sleep apnea) Is this a current diagnosis for this admission?: Yes Plan: Patient will need to wear BiPAP at all times when he is sleeping (5) Polycythemia Is this a current diagnosis for this admission?: Yes Plan: chronic hypoxemia - Time Total Critical Time (Minutes): 55
--- NOTE | 2018-07-31 16:59 | EKG REPORT ---
SEVERITY:- DEFECTIVE ECG - SINUS RHYTHM SHORT TN INTERVAL, ACCELERATED AV CONDUCTION ABNORMAL T, CONSIDER ISCHEMIA, DIFFUSE LEADS BASELINE ARTIFACT.REPEAT EKG : Confirmed by: Carlotta Kleni MD 31-Jul-2018 16:58:15
--- NOTE | 2018-07-31 20:12 | PDOC PROGRESS REPORT ---
Subjective Progress Note for:: 07/31/18 Subjective:: Mr. Bro is a 63-year-old male with a past medical history of COPD who was admitted with acute hypoxic and hypercapnic respiratory failure secondary to COPD exacerbation with possible obesity related hypoventilation. Patient was intubated on admission and was admitted to ICU. He was also initially noted to have elevated troponins which was deemed to be secondary to demand ischemia. Event overnight. Patient passed spontaneous breathing trials. He was extubated at 10 AM today. Upon encounter, patient is comfortable on BiPAP. He denies any complaints. He says he is breathing comfortably. He denies any chest pain Reason For Visit: ACUTE HYPOXIC,HYPERCAPNIC RESPIRATORY FAILURE, Physical Exam Vital Signs: Temp Pulse Resp BP Pulse Ox 99.0 F 69 14 112/66 97 07/31/18 19:38 07/31/18 18:00 07/31/18 18:14 07/31/18 18:14 07/31/18 18:14 Intake & Output 07/30/18 07/31/18 08/01/18 06:59 06:59 06:59 Intake Total 1393 1408 350 Output Total 3045 2495 2395 Balance -6926 -4738 -9872 Weight 332 lb 0.258 oz 331 lb 2.149 oz General appearance: PRESENT: no acute distress, well-developed, well-nourished Head exam: PRESENT: atraumatic, normocephalic Eye exam: PRESENT: conjunctiva pink, EOMI, PERRLA. ABSENT: scleral icterus Ear exam: PRESENT: bleeding Mouth exam: PRESENT: moist, tongue midline Neck exam: ABSENT: carotid bruit, JVD, lymphadenopathy, thyromegaly Respiratory exam: PRESENT: clear to auscultation adam. ABSENT: rales, rhonchi, wheezes Cardiovascular exam: PRESENT: RRR. ABSENT: diastolic murmur, rubs, systolic murmur Pulses: PRESENT: normal dorsalis pedis pul GI/Abdominal exam: PRESENT: normal bowel sounds, soft. ABSENT: distended, guarding, mass, organolmegaly, rebound, tenderness Rectal exam: PRESENT: deferred Neurological exam: PRESENT: alert, awake, oriented to person, oriented to place , oriented to time, oriented to situation, CN II-XII grossly intact. ABSENT: motor sensory deficit Results Laboratory Results: 07/31/18 04:11 07/31/18 04:11 07/31/18 07/31/18 07/31/18 04:11 04:11 06:00 WBC 10.2 RBC 4.58 Hgb 14.5 Hct 44.4 MCV 97 MCH 31.7 MCHC 32.7 RDW 15.1 H Plt Count 146 L Carbonic Acid 1.73 H HCO3/H2CO3 Ratio 22:1 ABG pH 7.45 ABG pCO2 57.5 H ABG pO2 109.1 H ABG HCO3 39.1 H ABG O2 Saturation 98.1 H ABG Base Excess 12.5 FiO2 60% Sodium 135.1 L Potassium 4.5 Chloride 89 L Carbon Dioxide 39 H Anion Gap 7 BUN 27 H Creatinine 0.71 Est GFR ( Amer) > 60 Est GFR (Non-Af Amer) > 60 Glucose 301 H Calcium 8.5 Magnesium 2.5 H 07/31/18 13:20 WBC RBC Hgb Hct MCV MCH MCHC RDW Plt Count Carbonic Acid 1.78 H HCO3/H2CO3 Ratio 23:1 ABG pH 7.47 H ABG pCO2 59.2 H ABG pO2 86.0 ABG HCO3 41.7 H ABG O2 Saturation 96.8 ABG Base Excess 14.8 FiO2 50% Sodium Potassium Chloride Carbon Dioxide Anion Gap BUN Creatinine Est GFR ( Amer) Est GFR (Non-Af Amer) Glucose Calcium Magnesium 07/28/18 23:12 Tracheal Aspirate Gram Stain - Final 07/28/18 23:12 Tracheal Aspirate Sputum Culture - Final NORMAL ROCHELLE 07/28/18 07/29/18 07/29/18 19:30 02:16 08:45 CK-MB (CK-2) 2.56 Troponin I 0.472 0.593 0.448 Impressions: Head CT 07/28/18 14:04 IMPRESSION: Motion artifact. No acute changes. EVIDENCE OF ACUTE STROKE: NO. Chest/Abdomen CTA 07/28/18 15:09 IMPRESSION: Bibasilar consolidation in the right and left posterior costophrenic sulci, atelectasis versus pneumonia No CT angio evidence of acute pulmonary emboli or thoracic aortic dissection Chest X-Ray 07/31/18 06:00 IMPRESSION: No significant change. Assessment & Plan - Diagnosis (1) Acute on chronic respiratory failure Qualifiers: Respiratory failure complication: hypoxia and hypercapnia Qualified Code(s) : J96.21 - Acute and chronic respiratory failure with hypoxia; J96.22 - Acute and chronic respiratory failure with hypercapnia; J96.22 - Acute and chronic respiratory failure with hypercapnia; J96.22 - Acute and chronic respiratory failure with hypercapnia Is this a current diagnosis for this admission?: Yes Plan: Patient did came in with acute hypoxic and hypercapnic respiratory failure likely secondary to COPD exacerbation with possible obesity related hypoventilation. Patient was extubated today. He is currently comfortable and saturating well on BiPAP. Pulmonology is following and has recommended that patient wear his BiPAP when asleep. (2) COPD exacerbation Is this a current diagnosis for this admission?: Yes Plan: Continue levofloxacin and IV steroids. - Time Time Spent with patient: 15-24 minutes
--- NOTE | 2018-07-31 21:42 | Progress Note ---
Provider Note Provider Note: CARDIOLOGY PROGRESS NOTE by Dr. Carlotta Klein for 07/31/2018. SUBJECTIVE: The patient was extubated a short time ago. The patient is on BiPAP. He denies any shortness of breath. He has cough but is unable to produce any sputum. He does have orthopnea but no PND there is no leg edema. There is no arrhythmias seen on the monitor. The patient has no anginal symptoms. There is no TIA CVA symptoms. PHYSICAL EXAMINATION: The patient is morbidly obese, in no acute distress. He is well-groomed. 07/31/18 18:00 Temperature 98.8 F Temperature Core Source Pulse Rate 69 Respiratory 15 Rate Blood Pressure 112/66 [Right Upper Arm] Blood Pressure 81 Mean [Right Upper Arm] Blood Pressure Supine Position [Right Upper Arm] Blood Pressure 112 Systolic [Right Upper Arm] O2 Sat by Pulse 97 Oximetry Oxygen Delivery Bi-pap Method ( includes room air) Percent of 50 Oxygen HEAD: Is atraumatic normocephalic. EYES: Nipples are equal round regular reactive to light accommodation. Extraocular movements are normal ,there is no conjunctival pallor or scleral icterus. ENT: Is negative. NECK: Is supple there is no JVD. Carotids are equal there is no bruit. There is no lymphadenopathy there is no goiter. Trachea central. SKIN: There is no petechia or ecchymosis. There is no skin rashes or skin lesions. LUNGS: There is a few dry crackles in both bases. There is diminished air entry prolonged expiration. There is no wheezing or rhonchi. There is no chest wall tenderness. HEART: S1-S2 is heard there is no S3 gallop there is no S4 gallop the systolic murmur in the left sternal border and the apex there is no rub. ABDOMEN: Is obese nontender. There is no hepatosplenomegaly. Bowel sounds well heard. EXTREMITIES: Femorals are deep femorals are diminished. There are no femoral bruits. Leg pulses are diminished. There is no pedal edema. There is no DVT or cellulitis. There is no calf tenderness. 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 PSYCHIATRIC the patient's judgment and insight are intact his affect is normal. 07/31/18 07/31/18 07/31/18 04:11 04:11 04:16 WBC 10.2 Hgb 14.5 Hct 44.4 Plt Count 146 L Carbonic Acid HCO3/H2CO3 Ratio ABG pH ABG pCO2 ABG pO2 ABG HCO3 ABG Total CO2 ABG O2 Saturation FiO2 Sodium 135.1 L Potassium 4.5 Chloride 89 L Carbon Dioxide 39 H BUN 27 H Creatinine 0.71 Est GFR (Non-Af Amer) > 60 Glucose 301 H POC Glucose 298 H Calcium 8.5 Magnesium 2.5 H 07/31/18 13:20 WBC Hgb Hct Plt Count Carbonic Acid 1.78 H HCO3/H2CO3 Ratio 23:1 ABG pH 7.47 H ABG pCO2 59.2 H ABG pO2 86.0 ABG HCO3 41.7 H ABG Total CO2 43.5 H ABG O2 Saturation 96.8 FiO2 50% Sodium Potassium Chloride Carbon Dioxide BUN Creatinine Est GFR (Non-Af Amer) Glucose POC Glucose Calcium Magnesium CHEST X-ray: Bibasilar pneumonia which is small. No evidence of heart failure. Mild cardiomegaly. EKG: There is baseline swinging artifact. Hence it defective EKG, needs to be repeated. Spite of this there is anterior T inversions suspicious for ischemia. IMPRESSION/RECOMMENDATION: 1. Status post acute respiratory failure with hypoxemia and hypercapnia. At present patient extubated. 2, ELEVATED TROPONIN: Most likely secondary to type II [place] supply demand mismatch , due to the patient's respiratory failure, pneumonia, as per respiratory acidosis, and hypoxemia. But the patient has multiple risk factor for CAD, and does have an abnormal EKG with anterior T inversion. Hence cannot entirely exclude non-ST elevation [place]. Will recheck the patient's troponin I tomorrow a.m. We will also repeat the EKG which is defective with baseline artifact. 3. Abnormal EKG: We will repeat the patient's EKG. data when the patient is stable would recommend the patient have an IV Cardiolite stress test. This can be done as an outpatient. This has been discussed with the patient patient's .. Will recheck the patient's blood pressure and heart rate tomorrow to see if we can maximize the patient's anti-CAD medications. 4. MORBID OBESITY. 5. HYPERTENSION: Blood pressure well controlled. 6. Heart FAILURE: At present compensated. 7. COPD: Continue antibiotics 8. Bibasilar pneumonia: Continue BiPAP and antibiotics. Medications reviewed cussed with the other caregiving providers on the case. Medical decision making is of high complexity. 40 minutes spent on this patient more than 50% of time spent in direct patient care. Patient is a full code. His is a surrogate healthcare decision maker. We will follow with you.
[2018-08-01] MEDS: IPRATROPIUM BROMIDE 0.02% NEB 0.5 MG/2.5 ML AMPUL NEB SCH ×3 (00:24→17:04)
[2018-08-01] MEDS: LEVALBUTEROL HCL NEB 1.25 MG/3 ML AMPUL NEB SCH ×3 (00:24→17:04)
[2018-08-01] MEDS: INSULIN LISPRO 100 UNIT/ML 3 ML VIAL SUBCUT PRN ×5 (04:31→20:33)
[2018-08-01 04:38] LABS: ABSOLUTE LYMPHOCYTES (AUTO) 0.8 10^3/uL (0.5-4.7); ABSOLUTE MONOCYTES (AUTO) 0.8 10^3/uL (0.1-1.4); BASOPHILS % (AUTO) 0.5 % (0-2); HEMATOCRIT 45.5 % (37.9-51.0); LYMPHOCYTES % (AUTO) 8.4 % (13-45); MEAN CORPUSCULAR HEMOGLOBIN 31.6 pg (27.0-33.4); MEAN CORPUSCULAR VOLUME 96 fl (80-97); MONOCYTES % (AUTO) 8.5 % (3-13); PLATELET COUNT 154 10^3/uL (150-450); RED BLOOD COUNT 4.75 10^6/uL (4.35-5.55); SEGMENTED NEUTROPHILS % (AUTO) 82.6 % (42-78); TOTAL CELLS COUNTED % (AUTO) 100 %; WHITE BLOOD COUNT 9.7 10^3/uL (4.0-10.5)
[2018-08-01 04:52] LABS: ARTERIAL BLOOD H2CO3 1.66 mmol/L (1.05-1.35); ARTERIAL BLOOD HCO3 40.4 mmol/L (20-24); ARTERIAL BLOOD O2 SATURATION 97.3 % (94-98); ARTERIAL BLOOD PCO2 55.3 mmHg (35-45); ARTERIAL BLOOD PH 7.48 (7.35-7.45); ARTERIAL BLOOD PO2 90.6 mmHg (80-100)
[2018-08-01 04:53] LABS: ARTERIAL BLOOD FIO2 50%
[2018-08-01 05:04] LABS: BLOOD UREA NITROGEN 29 mg/dL (7-20); CALCIUM 8.8 mg/dL (8.4-10.2); CHLORIDE 89 mmol/L (98-107); GLUCOSE 287 mg/dL (75-110); POTASSIUM 4.4 mmol/L (3.6-5.0); SODIUM 135.4 mmol/L (137-145)
[2018-08-01 05:15] LABS: ANION GAP 5 (5-19)
[2018-08-01 05:17] LABS: CARBON DIOXIDE 41 mmol/L (22-30)
[2018-08-01] MEDS: METHYLPREDNISOLONE INJ 40 MG/1 ML SDV IV SCH (06:24)
--- NOTE | 2018-08-01 06:41 | RADIOLOGY REPORT (SQ) ---
EXAM DESCRIPTION: XR CHEST 1 VIEW COMPLETED DATE/TME: 08/01/2018 06:00 CLINICAL HISTORY: 63 years Male, resp failure COMPARISON: One day prior. NUMBER OF VIEWS/TECHNIQUE: 1/AP FINDINGS: Small left basilar opacity-effusion, prominent interstitium, normal cardiac silhouette. No pneumothorax. Stable bony thorax. IMPRESSION: Interval extubation.
--- NOTE | 2018-08-01 07:55 | EKG REPORT ---
SEVERITY:- ABNORMAL ECG - SINUS RHYTHM PAIRED VENTRICULAR PREMATURE COMPLEXES MULT INTERPOLATED VENT PREMATURE COMPLEXES ABNORMAL T, CONSIDER ISCHEMIA, ANT-LAT LEADS PROLONGED QT INTERVAL : Confirmed by: Carlotta Klein MD 01-Aug-2018 07:54:38
[2018-08-01] MEDS: FUROSEMIDE INJ/PF 40 MG/4 ML SDV IV SCH (10:33)
[2018-08-01] MEDS: LEVOFLOXACIN 750 MG/D5W RTU 750 MG/150 ML RTUPB IV SCH (10:33)
[2018-08-01] MEDS: PANTOPRAZOLE SODIUM 40 MG VIAL IV SCH (10:33)
[2018-08-01] MEDS ORDERED: DILTIAZEM HCL 120 MG CAP.SR.24H PO ONE (11:47)
[2018-08-01] MEDS: DILTIAZEM HCL 120 MG CAP.SR.24H PO SCH ×2 (11:53→22:13)
[2018-08-01] MEDS: LISINOPRIL 5 MG TABLET PO SCH ×2 (12:59→22:17)
--- NOTE | 2018-08-01 13:26 | PDOC PROGRESS REPORT ---
Subjective Progress Note for:: 08/01/18 Subjective:: stable still req bipap Reason For Visit: ACUTE HYPOXIC,HYPERCAPNIC RESPIRATORY FAILURE, Physical Exam Vital Signs: Temp Pulse Resp BP Pulse Ox 98.4 F 70 14 116/81 97 08/01/18 08:00 08/01/18 08:22 08/01/18 08:22 08/01/18 08:00 08/01/18 08:22 Intake & Output 07/31/18 08/01/18 08/02/18 06:59 06:59 06:59 Intake Total 1408 350 Output Total 2495 3180 Balance -1087 -1610 Weight 150.2 kg 146.1 kg General appearance: PRESENT: no acute distress, cooperative, disheveled, morbidly obese Head exam: PRESENT: atraumatic, normocephalic Eye exam: PRESENT: conjunctiva pale, EOMI. ABSENT: nystagmus, periorbital swelling, scleral icterus Mouth exam: PRESENT: dry mucosa, neck supple, tongue midline Neck exam: ABSENT: carotid bruit, JVD, lymphadenopathy, thyromegaly, tracheal deviation, tracheostomy Respiratory exam: PRESENT: decreased breath sounds, prolonged expiratory phas, rhonchi, unlabored. ABSENT: rales, retraction, stridor, tachypnea Cardiovascular exam: PRESENT: RRR, +S1, +S2 Pulses: PRESENT: normal radial pulses GI/Abdominal exam: PRESENT: hypoactive bowel sounds, soft. ABSENT: tenderness Gentrourinary exam: PRESENT: indwelling catheter Extremities exam: PRESENT: pedal edema. ABSENT: calf tenderness, clubbing, +1 edema, +2 edema Musculoskeletal exam: ABSENT: ambulatory, deformity, dislocation Neurological exam: PRESENT: alert, awake Psychiatric exam: PRESENT: flat affect Skin exam: PRESENT: dry, warm Results Laboratory Results: 08/01/18 04:15 08/01/18 04:15 07/31/18 08/01/18 08/01/18 13:20 04:15 04:15 WBC 9.7 RBC 4.75 Hgb 15.0 Hct 45.5 MCV 96 MCH 31.6 MCHC 33.0 RDW 15.0 H Plt Count 154 Seg Neutrophils % 82.6 H Lymphocytes % 8.4 L Monocytes % 8.5 Eosinophils % 0.0 Basophils % 0.5 Absolute Neutrophils 8.0 Absolute Lymphocytes 0.8 Absolute Monocytes 0.8 Absolute Eosinophils 0.0 Absolute Basophils 0.0 Carbonic Acid 1.78 H HCO3/H2CO3 Ratio 23:1 ABG pH 7.47 H ABG pCO2 59.2 H ABG pO2 86.0 ABG HCO3 41.7 H ABG O2 Saturation 96.8 ABG Base Excess 14.8 FiO2 50% Sodium 135.4 L Potassium 4.4 Chloride 89 L Carbon Dioxide 41 H* Anion Gap 5 BUN 29 H Creatinine 0.64 Est GFR ( Amer) > 60 Est GFR (Non-Af Amer) > 60 Glucose 287 H Calcium 8.8 Magnesium 2.3 08/01/18 04:20 WBC RBC Hgb Hct MCV MCH MCHC RDW Plt Count Seg Neutrophils % Lymphocytes % Monocytes % Eosinophils % Basophils % Absolute Neutrophils Absolute Lymphocytes Absolute Monocytes Absolute Eosinophils Absolute Basophils Carbonic Acid 1.66 H HCO3/H2CO3 Ratio 24:1 ABG pH 7.48 H ABG pCO2 55.3 H ABG pO2 90.6 ABG HCO3 40.4 H ABG O2 Saturation 97.3 ABG Base Excess 14.0 FiO2 50% Sodium Potassium Chloride Carbon Dioxide Anion Gap BUN Creatinine Est GFR ( Amer) Est GFR (Non-Af Amer) Glucose Calcium Magnesium 07/28/18 23:12 Tracheal Aspirate Gram Stain - Final 07/28/18 23:12 Tracheal Aspirate Sputum Culture - Final NORMAL ROCHELLE 07/28/18 07/29/18 07/29/18 19:30 02:16 08:45 CK-MB (CK-2) 2.56 Troponin I 0.472 0.593 0.448 08/01/18 04:15 CK-MB (CK-2) Troponin I 0.098 Impressions: Head CT 07/28/18 14:04 IMPRESSION: Motion artifact. No acute changes. EVIDENCE OF ACUTE STROKE: NO. Chest/Abdomen CTA 07/28/18 15:09 IMPRESSION: Bibasilar consolidation in the right and left posterior costophrenic sulci, atelectasis versus pneumonia No CT angio evidence of acute pulmonary emboli or thoracic aortic dissection Chest X-Ray 08/01/18 06:00 IMPRESSION: Interval extubation. Assessment & Plan - Diagnosis (1) Acute and chronic respiratory failure, unspecified whether with hypoxia or hypercapnia Qualifiers: Respiratory failure complication: hypoxia and hypercapnia Qualified Code(s) : J96.21 - Acute and chronic respiratory failure with hypoxia; J96.22 - Acute and chronic respiratory failure with hypercapnia; J96.22 - Acute and chronic respiratory failure with hypercapnia; J96.22 - Acute and chronic respiratory failure with hypercapnia Is this a current diagnosis for this admission?: Yes Plan: 24 hours status post extubation to BiPAP stable at this time (2) Hypertension Qualifiers: Hypertension type: essential hypertension Qualified Code(s): I10 - Essential (primary) hypertension Is this a current diagnosis for this admission?: Yes (3) NSTEMI (non-ST elevation myocardial infarction) Is this a current diagnosis for this admission?: Yes Plan: as per cardiology (4) DAWNA (obstructive sleep apnea) Is this a current diagnosis for this admission?: Yes Plan: Patient will need to wear BiPAP at all times when he is sleeping (5) Polycythemia Is this a current diagnosis for this admission?: Yes - Time Total Critical Time (Minutes): 45
[2018-08-01] MEDS: LANSOPRAZOLE 15 MG TAB.RAP.DR PO SCH (16:45)
--- NOTE | 2018-08-01 19:17 | PDOC PROGRESS REPORT ---
Subjective Progress Note for:: 08/01/18 Subjective:: Mr. Bro is a 63-year-old male with a past medical history of COPD who was admitted with acute hypoxic and hypercapnic respiratory failure secondary to COPD exacerbation with possible obesity related hypoventilation. Patient was intubated on admission and was admitted to ICU. He was also initially noted to have elevated troponins which was deemed to be secondary to demand ischemia. Patient was successfully extubated on 07/31/16. Patient did develop transient SVT early this morning which quickly resolved after bearing down. Blood pressure remained stable. Patient has been asymptomatic. He denies any chest pain, dizziness, shortness of breath or palpitations. He is comfortable on BiPAP. He denies any complaints. He says he is breathing comfortably. Reason For Visit: ACUTE HYPOXIC,HYPERCAPNIC RESPIRATORY FAILURE, Physical Exam Vital Signs: Temp Pulse Resp BP Pulse Ox 99.1 F 73 20 111/85 89 L 08/01/18 18:03 08/01/18 17:04 08/01/18 18:03 08/01/18 18:03 08/01/18 18:03 Intake & Output 07/31/18 08/01/18 08/02/18 06:59 06:59 06:59 Intake Total 1408 350 450 Output Total 2495 3180 1385 Balance -1087 -2830 -935 Weight 331 lb 2.149 oz 322 lb 1.526 oz General appearance: PRESENT: no acute distress, well-developed, well-nourished Head exam: PRESENT: atraumatic, normocephalic Eye exam: PRESENT: conjunctiva pink, EOMI, PERRLA. ABSENT: scleral icterus Ear exam: PRESENT: normal external ear exam Mouth exam: PRESENT: moist, tongue midline Neck exam: ABSENT: carotid bruit, JVD, lymphadenopathy, thyromegaly Respiratory exam: PRESENT: clear to auscultation adam. ABSENT: rales, rhonchi, wheezes Cardiovascular exam: PRESENT: RRR. ABSENT: diastolic murmur, rubs, systolic murmur Pulses: PRESENT: normal dorsalis pedis pul GI/Abdominal exam: PRESENT: normal bowel sounds, soft. ABSENT: distended, guarding, mass, organolmegaly, rebound, tenderness Rectal exam: PRESENT: deferred Neurological exam: PRESENT: alert, awake, oriented to person, oriented to place , oriented to time, oriented to situation, CN II-XII grossly intact. ABSENT: motor sensory deficit Results Laboratory Results: 08/01/18 04:15 08/01/18 04:15 08/01/18 08/01/18 08/01/18 04:15 04:15 04:20 WBC 9.7 RBC 4.75 Hgb 15.0 Hct 45.5 MCV 96 MCH 31.6 MCHC 33.0 RDW 15.0 H Plt Count 154 Seg Neutrophils % 82.6 H Lymphocytes % 8.4 L Monocytes % 8.5 Eosinophils % 0.0 Basophils % 0.5 Absolute Neutrophils 8.0 Absolute Lymphocytes 0.8 Absolute Monocytes 0.8 Absolute Eosinophils 0.0 Absolute Basophils 0.0 Carbonic Acid 1.66 H HCO3/H2CO3 Ratio 24:1 ABG pH 7.48 H ABG pCO2 55.3 H ABG pO2 90.6 ABG HCO3 40.4 H ABG O2 Saturation 97.3 ABG Base Excess 14.0 FiO2 50% Sodium 135.4 L Potassium 4.4 Chloride 89 L Carbon Dioxide 41 H* Anion Gap 5 BUN 29 H Creatinine 0.64 Est GFR ( Amer) > 60 Est GFR (Non-Af Amer) > 60 Glucose 287 H Calcium 8.8 Magnesium 2.3 07/28/18 07/29/18 07/29/18 19:30 02:16 08:45 CK-MB (CK-2) 2.56 Troponin I 0.472 0.593 0.448 08/01/18 04:15 CK-MB (CK-2) Troponin I 0.098 Impressions: Head CT 07/28/18 14:04 IMPRESSION: Motion artifact. No acute changes. EVIDENCE OF ACUTE STROKE: NO. Chest/Abdomen CTA 07/28/18 15:09 IMPRESSION: Bibasilar consolidation in the right and left posterior costophrenic sulci, atelectasis versus pneumonia No CT angio evidence of acute pulmonary emboli or thoracic aortic dissection Chest X-Ray 08/01/18 06:00 IMPRESSION: Interval extubation. Assessment & Plan - Diagnosis (1) Acute on chronic respiratory failure Qualifiers: Respiratory failure complication: hypoxia and hypercapnia Qualified Code(s) : J96.21 - Acute and chronic respiratory failure with hypoxia; J96.22 - Acute and chronic respiratory failure with hypercapnia; J96.22 - Acute and chronic respiratory failure with hypercapnia; J96.22 - Acute and chronic respiratory failure with hypercapnia Is this a current diagnosis for this admission?: Yes Plan: Patient did came in with acute hypoxic and hypercapnic respiratory failure likely secondary to COPD exacerbation with possible obesity related hypoventilation. Patient was successfully extubated on 07/31. He is currently comfortable and saturating well on BiPAP. Pulmonology is following and has recommended that patient wear his BiPAP when asleep. (2) COPD exacerbation Is this a current diagnosis for this admission?: Yes Plan: Continue levofloxacin. Will switch IV steroids to oral. (3) Paroxysmal SVT (supraventricular tachycardia) Is this a current diagnosis for this admission?: Yes Plan: Patient had a few episodes of transient SVT early this morning. Blood pressures reman stable. Patient is asymptomatic. Cardiology is following and patient has been started on oral Cardizem. - Time Time Spent with patient: 15-24 minutes
--- NOTE | 2018-08-01 21:06 | Progress Note ---
Provider Note Provider Note: CARDIOLOGY PROGRESS NOTE by Dr. Carlotta Klein on 08/01/2018. SUBJECTIVE: The patient denies any chest pain or discomfort. There is no PND orthopnea. There is no leg edema. He denies any shortness of breath. But the patient still on BiPAP. He has asymptomatic short runs of paroxysmal supraventricular tachycardia. There is no ventricular arrhythmias seen. His electrolytes seem to be normal. He denies any cough or sputum production. PHYSICAL EXAMINATION: The patient is morbidly obese, but well-groomed, and in spite of the short burst of SVT he has no distress. Selected Entries 08/01/18 08/01/18 11:56 12:00 Temperature 98.8 F Temperature Core Source Pulse Rate 81 Respiratory 20 Rate Blood Pressure 131/79 H [Right Upper Arm] Blood Pressure 96 Mean [Right Upper Arm] Blood Pressure Supine Position [Right Upper Arm] Blood Pressure 131 Systolic [Right Upper Arm] O2 Sat by Pulse 96 96 Oximetry Oxygen Delivery Bi-pap Method ( includes room air) Percent of 50 Oxygen HEAD: Is atraumatic normocephalic. EYES: Nipples are equal round regular reactive to light accommodation. Extraocular movements are normal ,there is no conjunctival pallor or scleral icterus. ENT: Is negative. NECK: Is supple there is no JVD. Carotids are equal there is no bruit. There is no lymphadenopathy there is no goiter. Trachea central. SKIN: There is no petechia or ecchymosis. There is no skin rashes or skin lesions. LUNGS: There is a few dry crackles in the left base, with a small area of absent breath sounds in the lower most portion of this left base. The right base is clear.. There is diminished air entry prolonged expiration. There is no wheezing or rhonchi. There is no chest wall tenderness. HEART: S1-S2 is heard there is no S3 gallop there is no S4 gallop the systolic murmur in the left sternal border and the apex there is no rub. ABDOMEN: Is obese nontender. There is no hepatosplenomegaly. Bowel sounds well heard. EXTREMITIES: Femorals are deep femorals are diminished. There are no femoral bruits. Leg pulses are diminished. There is no pedal edema. There is no DVT or cellulitis. There is no calf tenderness. INFECTION PREVENTION COORDINATOR: The patient is conscious awake alert oriented x3 with no focal deficit. PSYCHIATRIC the patient's judgment and insight are intact his affect is normal. 08/01/18 08/01/18 08/01/18 04:15 04:15 04:20 WBC 9.7 Hgb 15.0 Hct 45.5 Plt Count 154 ABG pH 7.48 H ABG pCO2 55.3 H ABG pO2 90.6 ABG HCO3 40.4 H ABG Total CO2 42.0 H ABG O2 Saturation 97.3 FiO2 50% Sodium 135.4 L Potassium 4.4 Chloride 89 L Carbon Dioxide 41 H* BUN 29 H Creatinine 0.64 Est GFR (Non-Af Amer) > 60 Glucose 287 H Calcium 8.8 Magnesium 2.3 His troponin I is 0.098. The patient's 24-hour total intake is 350 mL. 24- hour total output is 3180 mL EKG: Sinus rhythm. PVCs. There is anterior T inversion consistent with ischemia. Nonspecific T changes lateral leads. CHEST X-ray: There is no heart failure. There is a small left basilar opacity with possibly a small pleural effusion on the left base. This is an improvement compared to yesterday's x- ray. IMPRESSION/RECOMMENDATION: . 1. Paroxysmal Supraventricular Tachycardia: Sometimes her heart rate goes up to the 160s, and these happen in short bursts. We will start the patient on Cardizem CD 120 mg p.o. every 12 hours, in view of the patient's diabetes will also use start him on an NEETA INHIBITOR. If the patient continues to have PSVT episodes, then would increase the Cardizem CD to 180 mg p.o. every 12 hours. 2, ELEVATED TROPONIN: Most likely secondary to type II [place] supply demand mismatch , due to the patient's respiratory failure, pneumonia, as per respiratory acidosis, and hypoxemia. But the patient has multiple risk factor for CAD, and does have an abnormal EKG with anterior T inversion. But his troponin I is now trending down, with today's value of 0.098. 3. Abnormal EKG: We will repeat the patient's EKG. data when the patient is stable would recommend the patient have an IV Cardiolite stress test. This can be done as an outpatient. This has been discussed with the patient patient's .. Will recheck the patient's blood pressure and heart rate tomorrow to see if we can maximize the patient's anti-CAD medications. 4. MORBID OBESITY. 5. HYPERTENSION: Blood pressure well controlled. 6. Heart FAILURE: At present compensated. 7. COPD: Continue antibiotics 8. Bibasilar pneumonia: Continue BiPAP and antibiotics. Note chest x-ray shows improvement. 9. Status post acute respiratory failure with hypoxemia and hypercapnia. At present patient extubated. Still has hypercapnia on this a.m.'s ABG. His medications have been reviewed and new medications added. Discussed with the other caregiving providers on the case. Medical decision making is no high complexity in view of the paroxysms of supraventricular tachycardia. Note 40 minutes spent on this patient with more than 50% of time spent in direct patient care. We will follow with you.
[2018-08-02] MEDS: INSULIN LISPRO 100 UNIT/ML 3 ML VIAL SUBCUT PRN ×6 (00:10→23:50)
[2018-08-02] MEDS: LEVALBUTEROL HCL NEB 1.25 MG/3 ML AMPUL NEB SCH ×4 (00:27→23:34)
[2018-08-02] MEDS: IPRATROPIUM BROMIDE 0.02% NEB 0.5 MG/2.5 ML AMPUL NEB SCH ×4 (00:27→23:34)
[2018-08-02] MEDS: LANSOPRAZOLE 15 MG TAB.RAP.DR PO SCH ×2 (06:06→17:41)
[2018-08-02] MEDS ORDERED: NORMAL SALINE 1000 ML 1,000 ML IV ONE (06:45)
[2018-08-02] MEDS: LEVOFLOXACIN 750 MG/D5W RTU 750 MG/150 ML RTUPB IV SCH (09:30)
[2018-08-02] MEDS: PREDNISONE 20 MG TABLET PO SCH (09:30)
[2018-08-02] MEDS: DILTIAZEM HCL 120 MG CAP.SR.24H PO SCH ×2 (09:31→21:54)
[2018-08-02 10:53] LABS: HEMATOCRIT 44.8 % (37.9-51.0); HEMOGLOBIN 14.6 g/dL (13.5-17.0); MEAN CORPUSCULAR HEMOGLOBIN 31.3 pg (27.0-33.4); MEAN CORPUSCULAR HGB CONC 32.5 g/dL (32.0-36.0); MEAN CORPUSCULAR VOLUME 96 fl (80-97); PLATELET COUNT 132 10^3/uL (150-450); RED BLOOD COUNT 4.65 10^6/uL (4.35-5.55); RED CELL DISTRIBUTION WIDTH 15.5 % (11.5-14.0); WHITE BLOOD COUNT 8.2 10^3/uL (4.0-10.5)
[2018-08-02] MEDS: HEPARIN SOD (PORCINE) 5,000 UNIT/ML 1 ML SYRINGE SUBCUT SCH ×2 (12:20→21:53)
[2018-08-02 13:02] LABS: ANION GAP 8 (5-19); BLOOD UREA NITROGEN 48 mg/dL (7-20); CALCIUM 8.9 mg/dL (8.4-10.2); CARBON DIOXIDE 35 mmol/L (22-30); CHLORIDE 90 mmol/L (98-107); GLUCOSE 268 mg/dL (75-110); SODIUM 132.5 mmol/L (137-145)
--- NOTE | 2018-08-02 16:51 | PDOC PROGRESS REPORT ---
Subjective Progress Note for:: 08/02/18 Subjective:: Mr. Bro is a 63-year-old male with a past medical history of COPD who was admitted with acute hypoxic and hypercapnic respiratory failure secondary to COPD exacerbation with possible obesity related hypoventilation. Patient was intubated on admission and was admitted to ICU. He was also initially noted to have elevated troponins which was deemed to be secondary to demand ischemia. Patient was successfully extubated on 07/31/18. Upon encounter, patient is comfortable on BiPAP. He denies any complaints. He says he is breathing comfortably. He denies any chest pain, dizziness or SOB. Patient did have an episode of hypertension with systolic in the 80s last night. He was given 1L of fluid bolus and has not had recurrence of low blood pressure so far. He had a few runs of tranisent SVT later this morning with no drop in blood pressures. He remains asymptomatic from these transient SVTs. Inquired patient and why his previous home medication includes Eliquis on the list. He denies being on Eliquis. He denies previous history of atrial fibrillation or DVT or PE. Reason For Visit: ACUTE HYPOXIC,HYPERCAPNIC RESPIRATORY FAILURE, Physical Exam Vital Signs: Temp Pulse Resp BP Pulse Ox 99.3 F 69 18 95/59 L 98 08/02/18 16:00 08/02/18 16:19 08/02/18 16:19 08/02/18 15:59 08/02/18 16:19 Intake & Output 08/01/18 08/02/18 08/03/18 06:59 06:59 06:59 Intake Total 717 032 3636 Output Total 3180 1770 300 Balance -2830 -1320 1330 Weight 322 lb 1.526 oz 324 lb 4.8 oz General appearance: PRESENT: no acute distress, well-developed, well-nourished Head exam: PRESENT: atraumatic, normocephalic Eye exam: PRESENT: conjunctiva pink, EOMI, PERRLA. ABSENT: scleral icterus Ear exam: PRESENT: normal external ear exam Mouth exam: PRESENT: moist, tongue midline Neck exam: ABSENT: carotid bruit, JVD, lymphadenopathy, thyromegaly Respiratory exam: PRESENT: clear to auscultation adam, rhonchi. ABSENT: rales, wheezes Cardiovascular exam: PRESENT: RRR. ABSENT: diastolic murmur, rubs, systolic murmur Pulses: PRESENT: normal dorsalis pedis pul GI/Abdominal exam: PRESENT: normal bowel sounds, soft. ABSENT: distended, guarding, mass, organolmegaly, rebound, tenderness Rectal exam: PRESENT: deferred Neurological exam: PRESENT: alert, awake, oriented to person, oriented to place , oriented to time, oriented to situation, CN II-XII grossly intact. ABSENT: motor sensory deficit Results Laboratory Results: 08/02/18 10:40 08/02/18 12:35 08/02/18 08/02/18 08/02/18 10:40 10:40 10:40 WBC 8.2 RBC 4.65 Hgb 14.6 Hct 44.8 MCV 96 MCH 31.3 MCHC 32.5 RDW 15.5 H Plt Count 132 L Sodium Cancelled Potassium Cancelled Chloride Cancelled Carbon Dioxide Cancelled Anion Gap Cancelled BUN Cancelled Creatinine Cancelled Est GFR ( Amer) Cancelled Est GFR (Non-Af Amer) Cancelled Glucose Cancelled Calcium Cancelled Magnesium Cancelled 08/02/18 12:35 WBC RBC Hgb Hct MCV MCH MCHC RDW Plt Count Sodium 132.5 L Potassium 4.0 Chloride 90 L Carbon Dioxide 35 H Anion Gap 8 BUN 48 H Creatinine 1.01 Est GFR ( Amer) > 60 Est GFR (Non-Af Amer) > 60 Glucose 268 H Calcium 8.9 Magnesium 2.2 07/28/18 07/29/18 07/29/18 19:30 02:16 08:45 CK-MB (CK-2) 2.56 Troponin I 0.472 0.593 0.448 08/01/18 04:15 CK-MB (CK-2) Troponin I 0.098 Impressions: Head CT 07/28/18 14:04 IMPRESSION: Motion artifact. No acute changes. EVIDENCE OF ACUTE STROKE: NO. Chest/Abdomen CTA 07/28/18 15:09 IMPRESSION: Bibasilar consolidation in the right and left posterior costophrenic sulci, atelectasis versus pneumonia No CT angio evidence of acute pulmonary emboli or thoracic aortic dissection Chest X-Ray 08/01/18 06:00 IMPRESSION: Interval extubation. Assessment & Plan - Diagnosis (1) Acute on chronic respiratory failure Qualifiers: Respiratory failure complication: hypoxia and hypercapnia Qualified Code(s) : J96.21 - Acute and chronic respiratory failure with hypoxia; J96.22 - Acute and chronic respiratory failure with hypercapnia; J96.22 - Acute and chronic respiratory failure with hypercapnia; J96.22 - Acute and chronic respiratory failure with hypercapnia Is this a current diagnosis for this admission?: Yes Plan: Patient did came in with acute hypoxic and hypercapnic respiratory failure likely secondary to COPD exacerbation with possible obesity related hypoventilation. Patient was extubated on 07/31/18. He is currently comfortable and saturating well on BiPAP. Pulmonology is following and has recommended that patient wear his BiPAP when asleep. Discussed with Dr. Gasca and patient need at least BIPAP or Trilogy at home but will benefit from going to rehab when deemed more stable for discharge/transfer after his acute issues have resolved. (2) COPD exacerbation Is this a current diagnosis for this admission?: Yes Plan: Continue levofloxacin and steroids. (3) Paroxysmal SVT (supraventricular tachycardia) Is this a current diagnosis for this admission?: Yes Plan: Patient to needs to have transient and short episodes of SVT. Blood pressures have remained stable during this episodes. Patient did have an episode of hypotension last night with a systolic of 80s but he was in sinus rhythm during the episode. He was getting Lasix 40 mg IV bid initially and this has been held. He was also given a liter of fluids during the episode. Patient remain asymptomatic and denies any chest pain, shortness of breath or palpitations. Cardiology is following. Continue oral Cardizem. (4) Elevated troponin I level Is this a current diagnosis for this admission?: Yes Plan: Patient was initially on heparin drip but this was discontinued after he developed some bleeding from the NG tube in the first 2 days of being on the ventilator. Cardiology following. Although his elevated troponin was deemed to be from possible demand ischemia from his recent COPD exacerbation, patient does have risk factors for CAD. - Time Time Spent with patient: 25-34 minutes
--- NOTE | 2018-08-02 21:12 | Progress Note ---
Provider Note Provider Note: PROGRESS NOTE by Dr. Carlotta Klein on 08/02/2018. SUBJECTIVE: The patient last night with hypotensive, and his Lasix was stopped as also his lisinopril. He was also given a fluid bolus. At present his blood pressure is marginal. This morning he had a 9 beat run of wide-complex irregular tachycardia which could be atrial fibrillation with aberrancy. There is no further PSVT's although he has some APCs now and then. In spite of this the patient denies any chest pain or discomfort. He has no palpitations. He denies cough or sputum production. There is no pleuritic chest pain. There is no hemoptysis. There is no PND orthopnea or leg edema. There is no TIA or CVA symptoms. In spite of blood pressure being 95 systolic, the patient is asymptomatic and is tolerating Cardizem CD at 120 mg p.o. twice daily. On examination the patient is morbidly obese, but in no acute distress. He is well-groomed. 08/02/18 08/02/18 08/02/18 08:55 12:59 13:00 Temperature 99.3 F Heart Rate ( 83 Monitors) Respiratory 21 H Rate Blood Pressure 95/61 L O2 Sat by Pulse 94 Oximetry Oxygen Delivery Bi-pap Method ( includes room air) Fraction of 50 Inspired Oxygen (FIO2) HEAD: Is atraumatic normocephalic. EYES: Nipples are equal round regular reactive to light accommodation. Extraocular movements are normal ,there is no conjunctival pallor or scleral icterus. ENT: Is negative. NECK: Is supple there is no JVD. Carotids are equal there is no bruit. There is no lymphadenopathy there is no goiter. Trachea central. SKIN: There is no petechia or ecchymosis. There is no skin rashes or skin lesions. LUNGS: There is a few dry crackles in the left base, with a small area of absent breath sounds in the lower most portion of this left base. The right base is clear.. There is diminished air entry prolonged expiration. There is no wheezing or rhonchi. There is no chest wall tenderness. HEART: S1-S2 is heard there is no S3 gallop there is no S4 gallop the systolic murmur in the left sternal border and the apex there is no rub. ABDOMEN: Is obese nontender. There is no hepatosplenomegaly. Bowel sounds well heard. EXTREMITIES: Femorals are deep femorals are diminished. There are no femoral bruits. Leg pulses are diminished. There is no pedal edema. There is no DVT or cellulitis. There is no calf tenderness. FIELD MECHANICAL METER TESTER: The patient is conscious awake alert oriented x3 with no focal deficit. PSYCHIATRIC the patient's judgment and insight are intact his affect is normal. 08/02/18 08/02/18 10:40 12:35 WBC 8.2 Hgb 14.6 Hct 44.8 Plt Count 132 L Sodium 132.5 L Potassium 4.0 Chloride 90 L Carbon Dioxide 35 H BUN 48 H Creatinine 1.01 Est GFR (Non-Af Amer) > 60 Glucose 268 H Calcium 8.9 Magnesium 2.2 1. Paroxysmal Supraventricular Tachycardia: Sometimes her heart rate goes up to the 160s, and these happen in short bursts. We will start the patient on Cardizem CD 120 mg p.o. every 12 hours, in view of the patient's diabetes will also use start him on an NEETA INHIBITOR. If the patient continues to have PSVT episodes, then would increase the Cardizem CD to 180 mg p.o. every 12 hours. 2, ELEVATED TROPONIN: Most likely secondary to type II [place] supply demand mismatch , due to the patient's respiratory failure, pneumonia, as per respiratory acidosis, and hypoxemia. But the patient has multiple risk factor for CAD, and does have an abnormal EKG with anterior T inversion. But his troponin I is now trending down, with today's value of 0.098. We will recheck the patient's troponin I in the a.m. 3. Abnormal EKG: We will repeat the patient's EKG. data when the patient is stable would recommend the patient have an IV Cardiolite stress test. This can be done as an outpatient. This has been discussed with the patient patient's .. Will recheck the patient's blood pressure and heart rate tomorrow to see if we can maximize the patient's anti-CAD medications. 4. MORBID OBESITY. 5. HYPERTENSION: Blood pressure well controlled. In fact his systolic blood pressure is in the mid 90s. He would stop the patient's Lasix and lisinopril for now. 6. Heart FAILURE: At present compensated. 7. COPD: Continue antibiotics 8. Bibasilar pneumonia: Continue BiPAP and antibiotics. Note chest x-ray shows improvement. 9. Status post acute respiratory failure with hypoxemia and hypercapnia. 10. Short episode of NONSUSTAINED WIDE COMPLEX TACHYCARDIA, which is irregular. Most likely short episode of atrial fibrillation paroxysmal with aberrancy. Will go for further recurrences.. Note medications have been reviewed, and medications discussed with the other caregiving providers on the case. Medical decision making is of high complexity. Note 40 minutes spent on this patient more than 50% of time spent in direct patient care. We will follow with you.
[2018-08-03] MEDS: INSULIN LISPRO 100 UNIT/ML 3 ML VIAL SUBCUT PRN ×5 (03:57→23:37)
[2018-08-03 04:21] LABS: ABSOLUTE BASOPHILS # (AUTO) 0.1 10^3/uL (0.0-0.2); ABSOLUTE EOSINOPHILS # (AUTO) 0.1 10^3/uL (0.0-0.6); TOTAL CELLS COUNTED % (AUTO) 100 %
[2018-08-03 04:25] LABS: ABSOLUTE LYMPHOCYTES (AUTO) 1.4 10^3/uL (0.5-4.7); ABSOLUTE NEUT (AUTO) 8.4 10^3/uL (1.7-8.2); BASOPHILS % (AUTO) 0.7 % (0-2); EOSINOPHILS % (AUTO) 1.1 % (0-6); HEMATOCRIT 41.7 % (37.9-51.0); HEMOGLOBIN 13.7 g/dL (13.5-17.0); LYMPHOCYTES % (AUTO) 13.1 % (13-45); MEAN CORPUSCULAR HEMOGLOBIN 31.3 pg (27.0-33.4); MEAN CORPUSCULAR HGB CONC 32.9 g/dL (32.0-36.0); MEAN CORPUSCULAR VOLUME 95 fl (80-97); MONOCYTES % (AUTO) 9.1 % (3-13); RED BLOOD COUNT 4.39 10^6/uL (4.35-5.55); RED CELL DISTRIBUTION WIDTH 14.9 % (11.5-14.0)
[2018-08-03 04:33] LABS: ANION GAP 5 (5-19); BLOOD UREA NITROGEN 35 mg/dL (7-20); CALCIUM 8.7 mg/dL (8.4-10.2); CARBON DIOXIDE 37 mmol/L (22-30); CHLORIDE 92 mmol/L (98-107); GLUCOSE 185 mg/dL (75-110); SODIUM 133.5 mmol/L (137-145)
[2018-08-03 04:49] LABS: PLATELET COUNT 140 10^3/uL (150-450)
--- NOTE | 2018-08-03 06:08 | RADIOLOGY REPORT (SQ) ---
EXAM DESCRIPTION: XR CHEST 1 VIEW COMPLETED DATE/TME: 08/03/2018 06:00 CLINICAL HISTORY: 63 years Male, SOB COMPARISON: 2 days prior. NUMBER OF VIEWS/TECHNIQUE: 1/AP FINDINGS: Small left basilar opacity-effusion, small atelectasis or scar of the right lung base, prominent interstitium, mildly enlarged cardiac silhouette. No pneumothorax. Stable bony thorax. IMPRESSION: No significant change.
[2018-08-03] MEDS: LANSOPRAZOLE 15 MG TAB.RAP.DR PO SCH ×2 (06:25→16:52)
[2018-08-03 06:31] LABS: ARTERIAL BLOOD BASE EXCESS 9.7 mmol/L; ARTERIAL BLOOD H2CO3 1.75 mmol/L (1.05-1.35); ARTERIAL BLOOD HCO3 36.5 mmol/L (20-24); ARTERIAL BLOOD O2 SATURATION 97.3 % (94-98); ARTERIAL BLOOD PCO2 58.1 mmHg (35-45); ARTERIAL BLOOD PH 7.42 (7.35-7.45); ARTERIAL BLOOD PO2 97.5 mmHg (80-100); ARTERIAL BLOOD TOTAL CO2 38.3 mmol/L (23-27)
[2018-08-03 06:38] LABS: ARTERIAL BLOOD FIO2 50%
[2018-08-03] MEDS: IPRATROPIUM BROMIDE 0.02% NEB 0.5 MG/2.5 ML AMPUL NEB SCH ×2 (08:37→16:23)
[2018-08-03] MEDS: LEVALBUTEROL HCL NEB 1.25 MG/3 ML AMPUL NEB SCH ×2 (08:37→16:23)
[2018-08-03] MEDS: PREDNISONE 20 MG TABLET PO SCH (09:50)
[2018-08-03] MEDS: LEVOFLOXACIN 750 MG/D5W RTU 750 MG/150 ML RTUPB IV SCH (09:51)
[2018-08-03] MEDS: DILTIAZEM HCL 120 MG CAP.SR.24H PO SCH ×2 (09:51→21:17)
[2018-08-03] MEDS: HEPARIN SOD (PORCINE) 5,000 UNIT/ML 1 ML SYRINGE SUBCUT SCH ×2 (09:51→21:17)
[2018-08-03 13:17] LABS: APPEARANCE,URINE SLIGHTLY-CLOUDY; BILIRUBIN,URINE NEGATIVE (NEGATIVE); COLOR,URINE YELLOW; GLUCOSE, URINE NEGATIVE (NEGATIVE); KETONES,URINE NEGATIVE (NEGATIVE); LEUKOCYTE ESTERASE,URINE NEGATIVE (NEGATIVE); NITRITE,URINE NEGATIVE (NEGATIVE); PROTEIN,URINE NEGATIVE (NEGATIVE); URINE SPECIFIC GRAVITY 1.026
--- NOTE | 2018-08-03 17:37 | PDOC PROGRESS REPORT ---
Subjective Progress Note for:: 08/03/18 Subjective:: Mr. Bro is a 63-year-old male with a past medical history of COPD who was admitted with acute hypoxic and hypercapnic respiratory failure secondary to COPD exacerbation with possible obesity related hypoventilation. Patient was intubated on admission and was admitted to ICU. He was also initially noted to have elevated troponins which was deemed to be secondary to demand ischemia. Patient was successfully extubated on 07/31/16. Aside from occasional PVCs, no recurrence of SVT overnight. Blood pressures have remained stable. No recurrence of hypotension. Patient has been asymptomatic. He denies any chest pain, dizziness, shortness of breath or palpitations. He is comfortable on BiPAP. He is having some chills today but no fever. Marques cath will be removed and sample will be sent for UA. He says he is breathing comfortably but did desaturate to the high 80s when temporarily switched to 6L of NC. Reason For Visit: ACUTE HYPOXIC,HYPERCAPNIC RESPIRATORY FAILURE, Physical Exam Vital Signs: Temp Pulse Resp BP Pulse Ox 99.7 F 74 19 103/54 L 94 08/03/18 16:00 08/03/18 08:37 08/03/18 16:01 08/03/18 16:00 08/03/18 16:01 Intake & Output 08/02/18 08/03/18 08/04/18 06:59 06:59 06:59 Intake Total 450 2130 590 Output Total 1770 1750 350 Balance -1320 380 240 Weight 324 lb 4.8 oz 325 lb 6.436 oz General appearance: PRESENT: no acute distress, well-developed, well-nourished, other - comfortable on BIPAP Head exam: PRESENT: atraumatic, normocephalic Eye exam: PRESENT: conjunctiva pink, EOMI, PERRLA. ABSENT: scleral icterus Ear exam: PRESENT: normal external ear exam Mouth exam: PRESENT: moist, tongue midline Neck exam: ABSENT: carotid bruit, JVD, lymphadenopathy, thyromegaly Respiratory exam: PRESENT: clear to auscultation adam, rhonchi. ABSENT: rales, wheezes Cardiovascular exam: PRESENT: RRR. ABSENT: diastolic murmur, rubs, systolic murmur Pulses: PRESENT: normal dorsalis pedis pul GI/Abdominal exam: PRESENT: normal bowel sounds, soft. ABSENT: distended, guarding, mass, organolmegaly, rebound, tenderness Rectal exam: PRESENT: deferred Extremities exam: PRESENT: +1 edema Neurological exam: PRESENT: alert, awake, oriented to person, oriented to place , oriented to time, oriented to situation, CN II-XII grossly intact. ABSENT: motor sensory deficit Results Laboratory Results: 08/03/18 04:12 08/03/18 04:12 08/03/18 08/03/18 08/03/18 04:12 04:12 04:12 WBC 11.0 H RBC 4.39 Hgb 13.7 Hct 41.7 MCV 95 MCH 31.3 MCHC 32.9 RDW 14.9 H Plt Count 140 L Seg Neutrophils % 76.0 Lymphocytes % 13.1 Monocytes % 9.1 Eosinophils % 1.1 Basophils % 0.7 Absolute Neutrophils 8.4 H Absolute Lymphocytes 1.4 Absolute Monocytes 1.0 Absolute Eosinophils 0.1 Absolute Basophils 0.1 Carbonic Acid Cancelled HCO3/H2CO3 Ratio Cancelled ABG pH Cancelled ABG pCO2 Cancelled ABG pO2 Cancelled ABG HCO3 Cancelled ABG O2 Saturation Cancelled ABG Base Excess Cancelled FiO2 Cancelled Sodium 133.5 L Potassium 4.0 Chloride 92 L Carbon Dioxide 37 H Anion Gap 5 BUN 35 H Creatinine 0.67 Est GFR ( Amer) > 60 Est GFR (Non-Af Amer) > 60 Glucose 185 H Calcium 8.7 Magnesium 2.2 Urine Color Urine Appearance Urine pH Ur Specific [place] Urine Protein Urine Glucose (UA) Urine Ketones Urine Blood Urine Nitrite Ur Leukocyte Esterase Urine WBC (Auto) Urine RBC (Auto) 08/03/18 08/03/18 06:23 12:25 WBC RBC Hgb Hct MCV MCH MCHC RDW Plt Count Seg Neutrophils % Lymphocytes % Monocytes % Eosinophils % Basophils % Absolute Neutrophils Absolute Lymphocytes Absolute Monocytes Absolute Eosinophils Absolute Basophils Carbonic Acid 1.75 H HCO3/H2CO3 Ratio 20:1 ABG pH 7.42 ABG pCO2 58.1 H ABG pO2 97.5 ABG HCO3 36.5 H ABG O2 Saturation 97.3 ABG Base Excess 9.7 FiO2 50% Sodium Potassium Chloride Carbon Dioxide Anion Gap BUN Creatinine Est GFR ( Amer) Est GFR (Non-Af Amer) Glucose Calcium Magnesium Urine Color YELLOW Urine Appearance SLIGHTLY-CLOUDY Urine pH 5.0 Ur Specific [place] 1.026 Urine Protein NEGATIVE Urine Glucose (UA) NEGATIVE Urine Ketones NEGATIVE Urine Blood NEGATIVE Urine Nitrite NEGATIVE Ur Leukocyte Esterase NEGATIVE Urine WBC (Auto) 1 Urine RBC (Auto) 6 07/28/18 22:45 Blood Blood Culture - Final NO GROWTH IN 5 DAYS 07/28/18 19:30 Blood Blood Culture - Final NO GROWTH IN 5 DAYS 07/28/18 07/29/18 07/29/18 19:30 02:16 08:45 CK-MB (CK-2) 2.56 Troponin I 0.472 0.593 0.448 08/01/18 08/03/18 04:15 04:12 CK-MB (CK-2) Troponin I 0.098 0.050 Impressions: Head CT 07/28/18 14:04 IMPRESSION: Motion artifact. No acute changes. EVIDENCE OF ACUTE STROKE: NO. Chest/Abdomen CTA 07/28/18 15:09 IMPRESSION: Bibasilar consolidation in the right and left posterior costophrenic sulci, atelectasis versus pneumonia No CT angio evidence of acute pulmonary emboli or thoracic aortic dissection Chest X-Ray 08/03/18 06:00 IMPRESSION: No significant change. Assessment & Plan - Diagnosis (1) Acute on chronic respiratory failure Qualifiers: Respiratory failure complication: hypoxia and hypercapnia Qualified Code(s) : J96.21 - Acute and chronic respiratory failure with hypoxia; J96.22 - Acute and chronic respiratory failure with hypercapnia; J96.22 - Acute and chronic respiratory failure with hypercapnia; J96.22 - Acute and chronic respiratory failure with hypercapnia Is this a current diagnosis for this admission?: Yes Plan: Patient did came in with acute hypoxic and hypercapnic respiratory failure likely secondary to COPD exacerbation with possible obesity related hypoventilation. Patient was successfully extubated on 07/31. He is currently comfortable and saturating well on BiPAP. Pulmonology is following and has recommended that patient wear his BiPAP when asleep.Discussed with Dr. Mohan who has recommended discharging patinet on BIPAP vs Trilogy. (2) COPD exacerbation Is this a current diagnosis for this admission?: Yes Plan: Continue levofloxacin. Continue oral steroids. (3) Paroxysmal SVT (supraventricular tachycardia) Is this a current diagnosis for this admission?: Yes Plan: He has some PVCs overnight but no recurrence of SVT so far. Blood pressures remain stable. Patient is asymptomatic. He is tolerating PO cardizem well. Cardiology is following. (4) Elevated troponin I level Is this a current diagnosis for this admission?: Yes Plan: Patient was initially on heparin drip but this was discontinued after he developed some bleeding from the NG tube in the first 2 days of being on the ventilator. Cardiology following. Although his elevated troponin was deemed to be from possible demand ischemia from his recent COPD exacerbation, patient does have risk factors for CAD. Discussed with patient and family that further CAD work-up will be purused in the future when he is more stable and his acute issues have resolved. Optimize medical therapy for CAD. (5) Diastolic CHF, chronic Is this a current diagnosis for this admission?: Yes Plan: Restart home dose of Lasix 20 mg daily PO. (6) Diabetes mellitus Qualifiers: Diabetes mellitus type: type 2 Is this a current diagnosis for this admission?: Yes Plan: This is a newly diagnosed DM presumed type 2. Hba1c is 7.8. Continue sliding scale for now.
--- NOTE | 2018-08-03 22:05 | Progress Note ---
Provider Note Provider Note: CARDIOLOGY PROGRESS NOTE by Dr. Carlotta Klein on 08/03/2018. Subjective: The patient's APCs and PVCs are much less. There is no recurrence of paroxysmal supraventricular tachycardia. The patient denies any chest pain or discomfort. The patient is on using a BiPAP. He denies shortness of breath , no chest pain. He denies any PND orthopnea or leg edema. He denies any palpitations. There is no dizziness or syncope or near syncope. There is no TIA or CVA symptoms. There is no ventricular tachycardia seen. PHYSICAL EXAMINATION: The patient is morbidly obese. But is well-groomed. At present in no acute distress. Selected Entries 08/03/18 08/03/18 08/03/18 08:37 09:00 10:59 Temperature 99.7 F Heart Rate ( 79 Monitors) Respiratory 21 H 26 H Rate Blood Pressure 114/63 Blood Pressure 80 Mean O2 Sat by Pulse 100 100 Oximetry Oxygen Delivery AVAP Method ( includes room air) Fraction of 50 Inspired Oxygen (FIO2) 08/03/18 08/03/18 08/03/18 04:12 04:12 04:12 WBC 11.0 H Hgb 13.7 Hct 41.7 Plt Count 140 L Sodium 133.5 L Potassium 4.0 Chloride 92 L Carbon Dioxide 37 H BUN 35 H Creatinine 0.67 Est GFR (Non-Af Amer) > 60 Glucose 185 H Calcium 8.7 Magnesium 2.2 Troponin I 0.050
[2018-08-04] MEDS: IPRATROPIUM BROMIDE 0.02% NEB 0.5 MG/2.5 ML AMPUL NEB SCH ×3 (00:10→16:06)
[2018-08-04] MEDS: LEVALBUTEROL HCL NEB 1.25 MG/3 ML AMPUL NEB SCH ×3 (00:10→16:06)
[2018-08-04] MEDS: INSULIN LISPRO 100 UNIT/ML 3 ML VIAL SUBCUT PRN ×5 (03:41→23:27)
[2018-08-04] MEDS: LANSOPRAZOLE 15 MG TAB.RAP.DR PO SCH ×2 (06:32→16:38)
[2018-08-04 08:33] LABS: HEMATOCRIT 42.2 % (37.9-51.0); HEMOGLOBIN 13.7 g/dL (13.5-17.0); MEAN CORPUSCULAR HEMOGLOBIN 31.2 pg (27.0-33.4); MEAN CORPUSCULAR HGB CONC 32.5 g/dL (32.0-36.0); MEAN CORPUSCULAR VOLUME 96 fl (80-97); PLATELET COUNT 125 10^3/uL (150-450); RED CELL DISTRIBUTION WIDTH 14.6 % (11.5-14.0); WHITE BLOOD COUNT 11.6 10^3/uL (4.0-10.5)
[2018-08-04 08:48] LABS: BLOOD UREA NITROGEN 23 mg/dL (7-20); CALCIUM 9.1 mg/dL (8.4-10.2); CHLORIDE 92 mmol/L (98-107); GLUCOSE 160 mg/dL (75-110); POTASSIUM 4.3 mmol/L (3.6-5.0)
[2018-08-04 08:53] LABS: SODIUM 135.6 mmol/L (137-145)
[2018-08-04 08:54] LABS: ANION GAP 4 (5-19)
[2018-08-04 08:56] LABS: CARBON DIOXIDE 40 mmol/L (22-30)
[2018-08-04] MEDS: LEVOFLOXACIN 750 MG/D5W RTU 750 MG/150 ML RTUPB IV SCH (09:54)
[2018-08-04] MEDS: HEPARIN SOD (PORCINE) 5,000 UNIT/ML 1 ML SYRINGE SUBCUT SCH ×2 (09:54→22:33)
[2018-08-04] MEDS: FUROSEMIDE 20 MG TABLET PO SCH (09:54)
[2018-08-04] MEDS: DILTIAZEM HCL 120 MG CAP.SR.24H PO SCH ×2 (09:55→22:33)
[2018-08-04] MEDS: PREDNISONE 20 MG TABLET PO SCH (09:55)
--- NOTE | 2018-08-04 14:31 | PDOC PROGRESS REPORT ---
Subjective Progress Note for:: 08/04/18 Subjective:: Mr. Bro is a 63-year-old male with a past medical history of COPD who was admitted with acute hypoxic and hypercapnic respiratory failure secondary to COPD exacerbation with possible obesity related hypoventilation. Patient was intubated on admission and was admitted to ICU. He was also initially noted to have elevated troponins which was deemed to be secondary to demand ischemia. Patient was successfully extubated on 07/31/16. No recurrence of transient SVTs in the past 48 hrs. Blood pressures have remained stable. Patient has been asymptomatic. He denies any chest pain, dizziness, shortness of breath or palpitations. He is comfortable on BiPAP. No chills or fever. 2 PM: Patient was alternated on 6L of NC and BIPAP (2 hrs on/off) and he remained comfortable off BIPAP and was saturating at 91-92% on 6L of nasal cannula. At home, patient's baseline sats is 92% on 4L of NC at rest and he does say he goes down to high 80s on 4L of O2 upon exertio at home. Reason For Visit: ACUTE HYPOXIC,HYPERCAPNIC RESPIRATORY FAILURE, Physical Exam Vital Signs: Temp Pulse Resp BP Pulse Ox 98.7 F 69 26 H 113/65 92 08/04/18 12:00 08/04/18 08:02 08/04/18 13:01 08/04/18 13:00 08/04/18 13:01 Intake & Output 08/03/18 08/04/18 08/05/18 06:59 06:59 06:59 Intake Total 2130 1090 650 Output Total 1750 1400 Balance 380 -310 650 Weight 325 lb 6.436 oz 324 lb 15.382 oz General appearance: PRESENT: no acute distress, well-developed, well-nourished Head exam: PRESENT: atraumatic, normocephalic Eye exam: PRESENT: conjunctiva pink, EOMI, PERRLA. ABSENT: scleral icterus Ear exam: PRESENT: normal external ear exam Mouth exam: PRESENT: moist, tongue midline Neck exam: ABSENT: carotid bruit, JVD, lymphadenopathy, thyromegaly Respiratory exam: PRESENT: clear to auscultation adam, rhonchi - occasional rhonchi, no crackles or wheezing. ABSENT: rales, wheezes Cardiovascular exam: PRESENT: RRR. ABSENT: diastolic murmur, rubs, systolic murmur Pulses: PRESENT: normal dorsalis pedis pul Vascular exam: PRESENT: normal capillary refill GI/Abdominal exam: PRESENT: normal bowel sounds, soft. ABSENT: distended, guarding, mass, organolmegaly, rebound, tenderness Rectal exam: PRESENT: deferred Extremities exam: PRESENT: +1 edema Neurological exam: PRESENT: alert, awake, oriented to person, oriented to place , oriented to time, oriented to situation, CN II-XII grossly intact. ABSENT: motor sensory deficit Results Laboratory Results: 08/04/18 08:15 08/04/18 08:15 08/04/18 08/04/18 08:15 08:15 WBC 11.6 H RBC 4.40 Hgb 13.7 Hct 42.2 MCV 96 MCH 31.2 MCHC 32.5 RDW 14.6 H Plt Count 125 L Sodium 135.6 L Potassium 4.3 Chloride 92 L Carbon Dioxide 40 H* Anion Gap 4 L BUN 23 H Creatinine 0.66 Est GFR ( Amer) > 60 Est GFR (Non-Af Amer) > 60 Glucose 160 H Calcium 9.1 Magnesium 2.0 07/28/18 07/29/18 07/29/18 19:30 02:16 08:45 CK-MB (CK-2) 2.56 Troponin I 0.472 0.593 0.448 08/01/18 08/03/18 04:15 04:12 CK-MB (CK-2) Troponin I 0.098 0.050 Impressions: Head CT 07/28/18 14:04 IMPRESSION: Motion artifact. No acute changes. EVIDENCE OF ACUTE STROKE: NO. Chest/Abdomen CTA 07/28/18 15:09 IMPRESSION: Bibasilar consolidation in the right and left posterior costophrenic sulci, atelectasis versus pneumonia No CT angio evidence of acute pulmonary emboli or thoracic aortic dissection Chest X-Ray 08/03/18 06:00 IMPRESSION: No significant change. Assessment & Plan - Diagnosis (1) Acute on chronic respiratory failure Qualifiers: Respiratory failure complication: hypoxia and hypercapnia Qualified Code(s) : J96.21 - Acute and chronic respiratory failure with hypoxia; J96.22 - Acute and chronic respiratory failure with hypercapnia; J96.22 - Acute and chronic respiratory failure with hypercapnia; J96.22 - Acute and chronic respiratory failure with hypercapnia Is this a current diagnosis for this admission?: Yes Plan: Patient did came in with acute hypoxic and hypercapnic respiratory failure likely secondary to COPD exacerbation with possible obesity related hypoventilation. Patient was successfully extubated on 07/31. He is currently comfortable and saturating well on BiPAP. Pulmonology is following and has recommended that patient wear his BiPAP when asleep. Discussed with Dr. Mohan who has recommended discharging patinet on BIPAP vs Trilogy. 2 PM: Patient was alternated on 6L of NC and BIPAP (2 hrs on/off) and he remained comfortable off BIPAP and was saturating at 91-92% on 6L of nasal cannula. At home, patient's baseline sats is 92% on 4L of NC at rest and he does say he goes down to high 80s on 4L of O2 upon exertio at home. Will try to alternate patient on NC/BIPAP 4 HRS ON/OFF tomorrow. He will continue to be on BIPAP at night/sleep. (2) COPD exacerbation Is this a current diagnosis for this admission?: Yes Plan: Continue levofloxacin for 2 more days. Continue oral steroids. (3) Paroxysmal SVT (supraventricular tachycardia) Is this a current diagnosis for this admission?: Yes Plan: No recurrence of SVT so far in the past 48 hrs. Blood pressures remain stable. Patient is asymptomatic. He is tolerating PO cardizem well. Cardiology is following. (4) Elevated troponin I level Is this a current diagnosis for this admission?: Yes Plan: Patient was initially on heparin drip but this was discontinued after he developed some bleeding from the NG tube in the first 2 days of being on the ventilator. Cardiology following. Although his elevated troponin was deemed to be from possible demand ischemia from his recent COPD exacerbation, patient does have risk factors for CAD. Discussed with patient and family that further CAD work-up will be purused in the future when he is more stable and his acute issues have resolved. Optimize medical therapy for CAD. (5) Diastolic CHF, chronic Is this a current diagnosis for this admission?: Yes Plan: Continue home dose of Lasix 20 mg daily PO. (6) Diabetes mellitus Qualifiers: Diabetes mellitus type: type 2 Is this a current diagnosis for this admission?: Yes Plan: This is a newly diagnosed DM presumed type 2. Hba1c is 7.8. Continue sliding scale for now. - Time Time Spent with patient: 15-24 minutes
--- NOTE | 2018-08-04 16:33 | PDOC PROGRESS REPORT ---
Subjective Progress Note for:: 08/04/18 Subjective:: stable Reason For Visit: ACUTE HYPOXIC,HYPERCAPNIC RESPIRATORY FAILURE, Physical Exam Vital Signs: Temp Pulse Resp BP Pulse Ox 98.7 F 70 24 H 101/73 95 08/04/18 12:00 08/04/18 16:06 08/04/18 16:06 08/04/18 16:00 08/04/18 16:06 Intake & Output 08/03/18 08/04/18 08/05/18 06:59 06:59 06:59 Intake Total 2130 1090 650 Output Total 1750 1400 400 Balance 380 -310 250 Weight 147.6 kg 147.4 kg General appearance: PRESENT: no acute distress, cooperative, disheveled, morbidly obese Head exam: PRESENT: atraumatic, normocephalic Eye exam: PRESENT: conjunctiva pale, EOMI Mouth exam: PRESENT: dry mucosa, neck supple, tongue midline Neck exam: ABSENT: carotid bruit, JVD, lymphadenopathy, thyromegaly, tracheal deviation, tracheostomy Respiratory exam: PRESENT: decreased breath sounds, prolonged expiratory phas, rhonchi, unlabored. ABSENT: retraction Cardiovascular exam: PRESENT: RRR, +S1, +S2 Pulses: PRESENT: normal radial pulses GI/Abdominal exam: PRESENT: normal bowel sounds, soft. ABSENT: tenderness Gentrourinary exam: PRESENT: indwelling catheter Extremities exam: PRESENT: pedal edema. ABSENT: calf tenderness, clubbing, tenderness Neurological exam: PRESENT: alert, awake Psychiatric exam: PRESENT: normal mood Skin exam: PRESENT: dry, warm Results Laboratory Results: 08/04/18 08:15 08/04/18 08:15 08/04/18 08/04/18 08:15 08:15 WBC 11.6 H RBC 4.40 Hgb 13.7 Hct 42.2 MCV 96 MCH 31.2 MCHC 32.5 RDW 14.6 H Plt Count 125 L Sodium 135.6 L Potassium 4.3 Chloride 92 L Carbon Dioxide 40 H* Anion Gap 4 L BUN 23 H Creatinine 0.66 Est GFR ( Amer) > 60 Est GFR (Non-Af Amer) > 60 Glucose 160 H Calcium 9.1 Magnesium 2.0 07/28/18 07/29/18 07/29/18 19:30 02:16 08:45 CK-MB (CK-2) 2.56 Troponin I 0.472 0.593 0.448 08/01/18 08/03/18 04:15 04:12 CK-MB (CK-2) Troponin I 0.098 0.050 Impressions: Head CT 07/28/18 14:04 IMPRESSION: Motion artifact. No acute changes. EVIDENCE OF ACUTE STROKE: NO. Chest/Abdomen CTA 07/28/18 15:09 IMPRESSION: Bibasilar consolidation in the right and left posterior costophrenic sulci, atelectasis versus pneumonia No CT angio evidence of acute pulmonary emboli or thoracic aortic dissection Chest X-Ray 08/03/18 06:00 IMPRESSION: No significant change. Assessment & Plan - Diagnosis (1) Acute and chronic respiratory failure, unspecified whether with hypoxia or hypercapnia Qualifiers: Respiratory failure complication: hypoxia and hypercapnia Qualified Code(s) : J96.21 - Acute and chronic respiratory failure with hypoxia; J96.22 - Acute and chronic respiratory failure with hypercapnia; J96.22 - Acute and chronic respiratory failure with hypercapnia; J96.22 - Acute and chronic respiratory failure with hypercapnia Is this a current diagnosis for this admission?: Yes Plan: BiPAP stable at this time (2) Hypertension Qualifiers: Hypertension type: essential hypertension Qualified Code(s): I10 - Essential (primary) hypertension Is this a current diagnosis for this admission?: Yes (3) NSTEMI (non-ST elevation myocardial infarction) Is this a current diagnosis for this admission?: Yes Plan: as per cardiology (4) DAWNA (obstructive sleep apnea) Is this a current diagnosis for this admission?: Yes Plan: Patient will need to wear BiPAP at all times when he is sleeping (5) Polycythemia Is this a current diagnosis for this admission?: Yes Plan: chronic hypoxemia - Time Total Critical Time (Minutes): 40
--- NOTE | 2018-08-04 16:35 | PDOC PROGRESS REPORT ---
Subjective Progress Note for:: 08/03/18 Subjective:: stable on bipap Reason For Visit: ACUTE HYPOXIC,HYPERCAPNIC RESPIRATORY FAILURE, Physical Exam Vital Signs: Temp Pulse Resp BP Pulse Ox 99.5 F 73 19 96/52 L 94 08/03/18 08:00 08/02/18 23:34 08/03/18 08:00 08/03/18 07:59 08/03/18 08:00 Intake & Output 08/02/18 08/03/18 08/04/18 06:59 06:59 06:59 Intake Total 450 2130 240 Output Total 1770 1750 120 Balance -1320 380 120 Weight 147.1 kg 147.6 kg General appearance: PRESENT: no acute distress, cooperative, disheveled, morbidly obese Head exam: PRESENT: atraumatic, normocephalic Eye exam: PRESENT: conjunctiva pale, EOMI Mouth exam: PRESENT: neck supple, tongue midline Neck exam: ABSENT: carotid bruit, JVD, lymphadenopathy, thyromegaly, tracheal deviation, tracheostomy Respiratory exam: PRESENT: decreased breath sounds, prolonged expiratory phas, rales, rhonchi, unlabored Cardiovascular exam: PRESENT: RRR, +S1, +S2 Pulses: PRESENT: normal radial pulses GI/Abdominal exam: PRESENT: hypoactive bowel sounds, soft. ABSENT: tenderness Gentrourinary exam: PRESENT: indwelling catheter Extremities exam: PRESENT: pedal edema. ABSENT: calf tenderness, clubbing Musculoskeletal exam: ABSENT: ambulatory, deformity, dislocation Neurological exam: PRESENT: alert, awake Psychiatric exam: PRESENT: flat affect Skin exam: PRESENT: dry, warm Results Laboratory Results: 08/03/18 04:12 08/03/18 04:12 08/02/18 08/02/18 08/02/18 10:40 10:40 10:40 WBC 8.2 RBC 4.65 Hgb 14.6 Hct 44.8 MCV 96 MCH 31.3 MCHC 32.5 RDW 15.5 H Plt Count 132 L Seg Neutrophils % Lymphocytes % Monocytes % Eosinophils % Basophils % Absolute Neutrophils Absolute Lymphocytes Absolute Monocytes Absolute Eosinophils Absolute Basophils Carbonic Acid HCO3/H2CO3 Ratio ABG pH ABG pCO2 ABG pO2 ABG HCO3 ABG O2 Saturation ABG Base Excess FiO2 Sodium Cancelled Potassium Cancelled Chloride Cancelled Carbon Dioxide Cancelled Anion Gap Cancelled BUN Cancelled Creatinine Cancelled Est GFR ( Amer) Cancelled Est GFR (Non-Af Amer) Cancelled Glucose Cancelled Calcium Cancelled Magnesium Cancelled 08/02/18 08/03/18 08/03/18 12:35 04:12 04:12 WBC 11.0 H RBC 4.39 Hgb 13.7 Hct 41.7 MCV 95 MCH 31.3 MCHC 32.9 RDW 14.9 H Plt Count 140 L Seg Neutrophils % 76.0 Lymphocytes % 13.1 Monocytes % 9.1 Eosinophils % 1.1 Basophils % 0.7 Absolute Neutrophils 8.4 H Absolute Lymphocytes 1.4 Absolute Monocytes 1.0 Absolute Eosinophils 0.1 Absolute Basophils 0.1 Carbonic Acid HCO3/H2CO3 Ratio ABG pH ABG pCO2 ABG pO2 ABG HCO3 ABG O2 Saturation ABG Base Excess FiO2 Sodium 132.5 L 133.5 L Potassium 4.0 4.0 Chloride 90 L 92 L Carbon Dioxide 35 H 37 H Anion Gap 8 5 BUN 48 H 35 H Creatinine 1.01 0.67 Est GFR ( Amer) > 60 > 60 Est GFR (Non-Af Amer) > 60 > 60 Glucose 268 H 185 H Calcium 8.9 8.7 Magnesium 2.2 2.2 08/03/18 08/03/18 04:12 06:23 WBC RBC Hgb Hct MCV MCH MCHC RDW Plt Count Seg Neutrophils % Lymphocytes % Monocytes % Eosinophils % Basophils % Absolute Neutrophils Absolute Lymphocytes Absolute Monocytes Absolute Eosinophils Absolute Basophils Carbonic Acid Cancelled 1.75 H HCO3/H2CO3 Ratio Cancelled 20:1 ABG pH Cancelled 7.42 ABG pCO2 Cancelled 58.1 H ABG pO2 Cancelled 97.5 ABG HCO3 Cancelled 36.5 H ABG O2 Saturation Cancelled 97.3 ABG Base Excess Cancelled 9.7 FiO2 Cancelled 50% Sodium Potassium Chloride Carbon Dioxide Anion Gap BUN Creatinine Est GFR ( Amer) Est GFR (Non-Af Amer) Glucose Calcium Magnesium 07/28/18 22:45 Blood Blood Culture - Final NO GROWTH IN 5 DAYS 07/28/18 19:30 Blood Blood Culture - Final NO GROWTH IN 5 DAYS 07/28/18 07/29/18 07/29/18 19:30 02:16 08:45 CK-MB (CK-2) 2.56 Troponin I 0.472 0.593 0.448 08/01/18 08/03/18 04:15 04:12 CK-MB (CK-2) Troponin I 0.098 0.050 Impressions: Head CT 07/28/18 14:04 IMPRESSION: Motion artifact. No acute changes. EVIDENCE OF ACUTE STROKE: NO. Chest/Abdomen CTA 07/28/18 15:09 IMPRESSION: Bibasilar consolidation in the right and left posterior costophrenic sulci, atelectasis versus pneumonia No CT angio evidence of acute pulmonary emboli or thoracic aortic dissection Chest X-Ray 08/03/18 06:00 IMPRESSION: No significant change. Assessment & Plan - Diagnosis (1) Acute and chronic respiratory failure, unspecified whether with hypoxia or hypercapnia Qualifiers: Respiratory failure complication: hypoxia and hypercapnia Qualified Code(s) : J96.21 - Acute and chronic respiratory failure with hypoxia; J96.22 - Acute and chronic respiratory failure with hypercapnia; J96.22 - Acute and chronic respiratory failure with hypercapnia; J96.22 - Acute and chronic respiratory failure with hypercapnia Is this a current diagnosis for this admission?: Yes Plan: BiPAP stable at this time (2) Hypertension Qualifiers: Hypertension type: essential hypertension Qualified Code(s): I10 - Essential (primary) hypertension Is this a current diagnosis for this admission?: Yes (3) NSTEMI (non-ST elevation myocardial infarction) Is this a current diagnosis for this admission?: Yes Plan: as per cardiology (4) DAWNA (obstructive sleep apnea) Is this a current diagnosis for this admission?: Yes Plan: Patient will need to wear BiPAP at all times when he is sleeping (5) Polycythemia Is this a current diagnosis for this admission?: Yes Plan: chronic hypoxemia - Time Total Critical Time (Minutes): 40
--- NOTE | 2018-08-04 16:37 | PDOC PROGRESS REPORT ---
Subjective Progress Note for:: 08/02/18 Subjective:: stable on bipap Reason For Visit: ACUTE HYPOXIC,HYPERCAPNIC RESPIRATORY FAILURE, Physical Exam Vital Signs: Temp Pulse Resp BP Pulse Ox 99.5 F 80 19 86/59 L 94 08/02/18 06:08 08/02/18 00:28 08/02/18 06:08 08/02/18 06:08 08/02/18 06:08 Intake & Output 08/01/18 08/02/18 08/03/18 06:59 06:59 06:59 Intake Total 533 751 9380 Output Total 3180 1770 Balance -2830 -1320 1000 Weight 146.1 kg 147.1 kg General appearance: PRESENT: no acute distress, cooperative, disheveled, morbidly obese Head exam: PRESENT: atraumatic, normocephalic Eye exam: PRESENT: conjunctiva pale, EOMI, PERRLA Mouth exam: PRESENT: neck supple, tongue midline Neck exam: ABSENT: carotid bruit, JVD, lymphadenopathy, thyromegaly, tracheal deviation, tracheostomy Respiratory exam: PRESENT: decreased breath sounds, prolonged expiratory phas, rhonchi, unlabored. ABSENT: retraction, stridor Cardiovascular exam: PRESENT: RRR, +S1, +S2 Pulses: PRESENT: normal radial pulses GI/Abdominal exam: PRESENT: normal bowel sounds, soft. ABSENT: tenderness Gentrourinary exam: PRESENT: indwelling catheter Extremities exam: PRESENT: pedal edema. ABSENT: calf tenderness, clubbing Musculoskeletal exam: ABSENT: ambulatory, deformity, dislocation Neurological exam: PRESENT: alert, awake Psychiatric exam: PRESENT: flat affect Skin exam: PRESENT: dry, warm Results Laboratory Results: 08/01/18 04:15 08/01/18 04:15 07/28/18 07/29/18 07/29/18 19:30 02:16 08:45 CK-MB (CK-2) 2.56 Troponin I 0.472 0.593 0.448 08/01/18 04:15 CK-MB (CK-2) Troponin I 0.098 Impressions: Head CT 07/28/18 14:04 IMPRESSION: Motion artifact. No acute changes. EVIDENCE OF ACUTE STROKE: NO. Chest/Abdomen CTA 07/28/18 15:09 IMPRESSION: Bibasilar consolidation in the right and left posterior costophrenic sulci, atelectasis versus pneumonia No CT angio evidence of acute pulmonary emboli or thoracic aortic dissection Chest X-Ray 08/01/18 06:00 IMPRESSION: Interval extubation. Assessment & Plan - Diagnosis (1) Acute and chronic respiratory failure, unspecified whether with hypoxia or hypercapnia Qualifiers: Respiratory failure complication: hypoxia and hypercapnia Qualified Code(s) : J96.21 - Acute and chronic respiratory failure with hypoxia; J96.22 - Acute and chronic respiratory failure with hypercapnia; J96.22 - Acute and chronic respiratory failure with hypercapnia; J96.22 - Acute and chronic respiratory failure with hypercapnia Is this a current diagnosis for this admission?: Yes Plan: BiPAP stable at this time (2) Hypertension Qualifiers: Hypertension type: essential hypertension Qualified Code(s): I10 - Essential (primary) hypertension Is this a current diagnosis for this admission?: Yes (3) NSTEMI (non-ST elevation myocardial infarction) Is this a current diagnosis for this admission?: Yes Plan: as per cardiology (4) DAWNA (obstructive sleep apnea) Is this a current diagnosis for this admission?: Yes Plan: Patient will need to wear BiPAP at all times when he is sleeping (5) Polycythemia Is this a current diagnosis for this admission?: Yes Plan: chronic hypoxemia - Time Total Critical Time (Minutes): 40
--- NOTE | 2018-08-04 22:21 | Progress Note ---
Provider Note Provider Note: PROGRESS NOTE by Dr. Carlotta Klein on 08/04/2018. SUBJECTIVE: The patient denies any chest pain or discomfort. He is still on the BiPAP but denies any shortness of breath. There is no PND orthopnea. There is no cough wheezing or sputum production. The patient states that he has a history of sleep apnea and uses CPAP at night.Here the patient is on BiPAP 24 hours. There is no further nonsustained wide-complex tachycardia. There are APCs a very infrequent. As also the PVCs. There is no recurrence of paroxysmal supraventricular tachycardia. There is no TIA CVA symptoms. On examination the patient is morbidly obese, in spite of the BiPAP he is not any any acute distress. He is well-groomed. Selected Entries 08/04/18 08/04/18 08/04/18 08:02 11:01 12:00 Temperature 98.7 F Temperature Axillary Source Heart Rate ( 71 Monitors) Respiratory 18 Rate Blood Pressure 119/68 Blood Pressure 85 Mean O2 Sat by Pulse 93 Oximetry Oxygen Delivery Bi-pap Method ( includes room air) Fraction of 50 Inspired Oxygen (FIO2) HEAD: Is atraumatic normocephalic. EYES: Pupils are equal round regular reactive to light accommodation. Extraocular movements are normal ,there is no conjunctival pallor or scleral icterus. ENT: Is negative. NECK: Is supple there is no JVD. Carotids are equal there is no bruit. There is no lymphadenopathy there is no goiter. Trachea central. SKIN: There is no petechia or ecchymosis. There is no skin rashes or skin lesions. LUNGS: There is a few dry crackles in the left base, with a small area of absent breath sounds in the lower most portion of this left base. The right base is clear.. There is diminished air entry prolonged expiration. There is no wheezing or rhonchi. There is no chest wall tenderness. HEART: S1-S2 is heard there is no S3 gallop there is no S4 gallop the systolic murmur in the left sternal border and the apex there is no rub. ABDOMEN: Is obese nontender. There is no hepatosplenomegaly. Bowel sounds well heard. EXTREMITIES: Femorals are deep femorals are diminished. There are no femoral bruits. Leg pulses are diminished. There is no pedal edema. There is no DVT or cellulitis. There is no calf tenderness. 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 PSYCHIATRIC the patient's judgment and insight are intact his affect is normal. 08/04/18 08/04/18 08:15 08:15 WBC 11.6 H Hgb 13.7 Hct 42.2 MCV 96 Plt Count 125 L Sodium 135.6 L Potassium 4.3 Chloride 92 L BUN 23 H Creatinine 0.66 Est GFR (Non-Af Amer) > 60 Glucose 160 H Calcium 9.1 Magnesium 2.0 IMPRESSION/RECOMMENDATION: 1. Paroxysmal Supraventricular Tachycardia: No recurrence on Cardizem. 2, ELEVATED TROPONIN: Most likely secondary to type II MO supply demand mismatch , due to the patient's respiratory failure, pneumonia, as per respiratory acidosis, and hypoxemia. But the patient has multiple risk factor for CAD, and does have an abnormal EKG with anterior T inversion. But his troponin I has trended down. 3. Abnormal EKG: We will repeat the patient's EKG. data when the patient is stable would recommend the patient have an IV Cardiolite stress test. This can be done as an outpatient. This has been discussed with the patient patient's .. Will recheck the patient's blood pressure and heart rate tomorrow to see if we can maximize the patient's anti-CAD medications. 4. MORBID OBESITY. 5. HYPERTENSION: Blood pressure well controlled. In fact his systolic blood pressure is in the mid 90s. He would stop the patient's Lasix and restart lisinopril for now. 6. Heart FAILURE: At present compensated. 7. COPD: Continue antibiotics 8. Bibasilar pneumonia: Continue BiPAP and antibiotics. Will recheck chest x- ray in a.m. 9. Status post acute respiratory failure with hypoxemia and hypercapnia. 10. Short episode of NONSUSTAINED WIDE COMPLEX TACHYCARDIA, which is irregular. There is no recurrence of this. Note his medications have been reviewed and new medications adjusted/added. Chest x-ray ordered. Medical decision making is of moderate complexity. Note 40 minutes spent on this patient more than 50% time spent in direct patient care. Discussed with other caregiving providers on the case. Will follow with you. Thanking you end of dictation
[2018-08-05] MEDS: LEVALBUTEROL HCL NEB 1.25 MG/3 ML AMPUL NEB SCH ×3 (00:33→16:10)
[2018-08-05] MEDS: IPRATROPIUM BROMIDE 0.02% NEB 0.5 MG/2.5 ML AMPUL NEB SCH ×3 (00:33→16:10)
[2018-08-05] MEDS: INSULIN LISPRO 100 UNIT/ML 3 ML VIAL SUBCUT PRN ×4 (04:02→22:00)
--- NOTE | 2018-08-05 06:51 | RADIOLOGY REPORT (SQ) ---
EXAM DESCRIPTION: XR CHEST 1 VIEW COMPLETED DATE/TME: 08/05/2018 06:00 CLINICAL HISTORY: 63 years Male, Pneumonia COMPARISON: [address], eight days prior. NUMBER OF VIEWS/TECHNIQUE: 1/AP FINDINGS: Small bibasilar opacity-effusion, mildly enlarged cardiac silhouette with straightened cardiac silhouette margins. No pneumothorax. Stable bony thorax. IMPRESSION: No significant change.
[2018-08-05] MEDS: LANSOPRAZOLE 15 MG TAB.RAP.DR PO SCH ×2 (09:31→16:33)
[2018-08-05] MEDS: DILTIAZEM HCL 120 MG CAP.SR.24H PO SCH ×2 (09:31→22:00)
[2018-08-05] MEDS: FUROSEMIDE 20 MG TABLET PO SCH (09:31)
[2018-08-05] MEDS: PREDNISONE 20 MG TABLET PO SCH (09:31)
[2018-08-05] MEDS: HEPARIN SOD (PORCINE) 5,000 UNIT/ML 1 ML SYRINGE SUBCUT SCH ×2 (09:32→22:01)
[2018-08-05] MEDS: LISINOPRIL 5 MG TABLET PO SCH ×2 (11:04→22:00)
[2018-08-05 11:14] LABS: HEMATOCRIT 42.7 % (37.9-51.0); HEMOGLOBIN 13.9 g/dL (13.5-17.0); MEAN CORPUSCULAR HEMOGLOBIN 31.3 pg (27.0-33.4); MEAN CORPUSCULAR HGB CONC 32.6 g/dL (32.0-36.0); MEAN CORPUSCULAR VOLUME 96 fl (80-97); PLATELET COUNT 140 10^3/uL (150-450); RED BLOOD COUNT 4.44 10^6/uL (4.35-5.55); RED CELL DISTRIBUTION WIDTH 14.6 % (11.5-14.0); WHITE BLOOD COUNT 10.5 10^3/uL (4.0-10.5)
[2018-08-05 11:36] LABS: ANION GAP 8 (5-19); BLOOD UREA NITROGEN 23 mg/dL (7-20); CALCIUM 9.3 mg/dL (8.4-10.2); CARBON DIOXIDE 37 mmol/L (22-30); CHLORIDE 92 mmol/L (98-107); GLUCOSE 174 mg/dL (75-110); SODIUM 136.6 mmol/L (137-145)
--- NOTE | 2018-08-05 14:57 | PDOC PROGRESS REPORT ---
Subjective Progress Note for:: 08/05/18 Subjective:: Mr. Bro is a 63-year-old male with a past medical history of COPD who was admitted with acute hypoxic and hypercapnic respiratory failure secondary to COPD exacerbation with possible obesity related hypoventilation. Patient was intubated on admission and was admitted to ICU. He was also initially noted to have elevated troponins which was deemed to be secondary to demand ischemia. Patient was successfully extubated on 07/31/16. No acute event overnight. No recurrence of transient SVTs. Blood pressures have remained stable. Patient has been asymptomatic. He denies any chest pain, dizziness, shortness of breath or palpitations. He is comfortable on BiPAP. No chills or fever. Yesterday afternoon, patient was alternated on 6L of NC and BIPAP (2 hrs on/off ) and he remained comfortable off BIPAP and was saturating at 91-92% on 6L of nasal cannula. At home, patient's baseline sats is 92% on 4L of NC at rest and he does say he goes down to high 80s on 4L of O2 upon exertion at home. Reason For Visit: ACUTE HYPOXIC,HYPERCAPNIC RESPIRATORY FAILURE, Physical Exam Vital Signs: Temp Pulse Resp BP Pulse Ox 99.7 F 79 20 108/74 94 08/05/18 13:58 08/05/18 13:58 08/05/18 14:01 08/05/18 14:00 08/05/18 14:01 Intake & Output 08/04/18 08/05/18 08/06/18 06:59 06:59 06:59 Intake Total 1090 1270 480 Output Total 1400 1120 450 Balance -310 150 30 Weight 324 lb 15.382 oz 322 lb 15.635 oz General appearance: PRESENT: no acute distress, well-developed, well-nourished Head exam: PRESENT: atraumatic, normocephalic Eye exam: PRESENT: conjunctiva pink, EOMI, PERRLA. ABSENT: scleral icterus Ear exam: PRESENT: normal external ear exam Neck exam: ABSENT: carotid bruit, JVD, lymphadenopathy, thyromegaly Respiratory exam: PRESENT: clear to auscultation adam. ABSENT: rales, rhonchi, wheezes Cardiovascular exam: PRESENT: RRR. ABSENT: diastolic murmur, rubs, systolic murmur Pulses: PRESENT: normal dorsalis pedis pul GI/Abdominal exam: PRESENT: normal bowel sounds, soft. ABSENT: distended, guarding, mass, organolmegaly, rebound, tenderness Rectal exam: PRESENT: deferred Extremities exam: PRESENT: +1 edema Neurological exam: PRESENT: alert, awake, oriented to person, oriented to place , oriented to time, oriented to situation, CN II-XII grossly intact. ABSENT: motor sensory deficit Results Laboratory Results: 08/05/18 11:03 08/05/18 11:03 08/05/18 08/05/18 11:03 11:03 WBC 10.5 RBC 4.44 Hgb 13.9 Hct 42.7 MCV 96 MCH 31.3 MCHC 32.6 RDW 14.6 H Plt Count 140 L Sodium 136.6 L Potassium 4.0 Chloride 92 L Carbon Dioxide 37 H Anion Gap 8 BUN 23 H Creatinine 0.63 Est GFR ( Amer) > 60 Est GFR (Non-Af Amer) > 60 Glucose 174 H Calcium 9.3 Magnesium 1.8 07/28/18 07/29/18 07/29/18 19:30 02:16 08:45 CK-MB (CK-2) 2.56 Troponin I 0.472 0.593 0.448 08/01/18 08/03/18 04:15 04:12 CK-MB (CK-2) Troponin I 0.098 0.050 Impressions: Head CT 07/28/18 14:04 IMPRESSION: Motion artifact. No acute changes. EVIDENCE OF ACUTE STROKE: NO. Chest/Abdomen CTA 07/28/18 15:09 IMPRESSION: Bibasilar consolidation in the right and left posterior costophrenic sulci, atelectasis versus pneumonia No CT angio evidence of acute pulmonary emboli or thoracic aortic dissection Chest X-Ray 08/05/18 06:00 IMPRESSION: No significant change. Assessment & Plan - Diagnosis (1) Acute on chronic respiratory failure Qualifiers: Respiratory failure complication: hypoxia and hypercapnia Qualified Code(s) : J96.21 - Acute and chronic respiratory failure with hypoxia; J96.22 - Acute and chronic respiratory failure with hypercapnia; J96.22 - Acute and chronic respiratory failure with hypercapnia; J96.22 - Acute and chronic respiratory failure with hypercapnia Is this a current diagnosis for this admission?: Yes Plan: Patient did came in with acute hypoxic and hypercapnic respiratory failure likely secondary to COPD exacerbation with possible obesity related hypoventilation. Patient was successfully extubated on 07/31. He is currently comfortable and saturating well on BiPAP. Pulmonology is following and has recommended that patient wear his BiPAP when asleep. Discussed with Dr. Mohan who has recommended discharging patinet on BIPAP vs Trilogy. Yesterday, patient was alternated on 6L of NC and BIPAP (2 hrs on/off) and he remained comfortable off BIPAP and was saturating at 91-92% on 6L of nasal cannula. At home, patient's baseline sats is 92% on 4L of NC at rest and he does say he goes down to high 80s on 4L of O2 upon exertio at home. Will try to alternate patient on NC/BIPAP 4 HRS ON/OFF today. He will continue to be on BIPAP at night/sleep. (2) COPD exacerbation Is this a current diagnosis for this admission?: Yes Plan: Continue levofloxacin for 1 more day. Continue oral steroids. (3) Paroxysmal SVT (supraventricular tachycardia) Is this a current diagnosis for this admission?: Yes Plan: No recurrence of SVT. Blood pressures remain stable. Patient is asymptomatic. He is tolerating PO cardizem well. Cardiology is following. (4) Elevated troponin I level Is this a current diagnosis for this admission?: Yes Plan: Patient was initially on heparin drip but this was discontinued after he developed some bleeding from the NG tube in the first 2 days of being on the ventilator. Cardiology following. Although his elevated troponin was deemed to be from possible demand ischemia from his recent COPD exacerbation, patient does have risk factors for CAD. Discussed with patient and family that further CAD work-up will be purused in the future when he is more stable and his acute issues have resolved. Optimize medical therapy for CAD. (5) Diastolic CHF, chronic Is this a current diagnosis for this admission?: Yes Plan: Continue home dose of Lasix 20 mg daily PO. (6) Diabetes mellitus Qualifiers: Diabetes mellitus type: type 2 Is this a current diagnosis for this admission?: Yes Plan: This is a newly diagnosed DM presumed type 2. Hba1c is 7.8. Continue sliding scale for now. - Time Time Spent with patient: 15-24 minutes
--- NOTE | 2018-08-05 23:07 | Progress Note ---
Provider Note Provider Note: PROGRESS NOTE by Dr. Carlotta Klein on 08/05/2018. SUBJECTIVE: The patient still is on the BiPAP, but denies any shortness of breath. There is no chest pain or discomfort there is no PND orthopnea. There they are very red PVCs and very rare APCs. There is no recurrence of paroxysmal supraventricular tachycardia. The patient denies any PND orthopnea. There is no cough or sputum production. There is no hemoptysis. There is no leg edema. There is no TIA CVA symptoms. Patient denies any wheezing. PHYSICAL EXAMINATION: The patient is morbidly obese. He is well-groomed. He is in no acute distress. 08/05/18 13:58 Temperature 99.7 F Temperature Axillary Source Pulse Rate 79 Respiratory 20 Rate Blood Pressure 116/78 [Right Upper Arm] Blood Pressure 90 Mean [Right Upper Arm] Blood Pressure Supine Position [Right Upper Arm] Blood Pressure 116 Systolic [Right Upper Arm] O2 Sat by Pulse 91 L Oximetry Oxygen Delivery Bi-pap Method ( includes room air) Percent of 50 Oxygen HEAD: Is atraumatic normocephalic. EYES: Pupils are equal round regular reactive to light accommodation. Ocular movements are normal. There is no conjunctival pallor. There is no scleral icterus. EARS nose and throat are negative. NECK: Supple. There is no JVD. Carotids are equal there is no bruit there is no lymphadenopathy. There is no carotid trachea central LUNGS: There is diminished air entry and prolonged expiration. There is no rhonchi rales or wheezing. There is no chest wall tenderness. HEART: S1-S2 is heard there is no S3 gallop there is no S4 gallop the systolic murmur the left sternal border and apex there is no rub. ABDOMEN: Is obese. Nontender there is no hepatosplenomegaly. Bowel sounds well heard. There is no tender areas of masses. EXTREMITIES: Femorals are diminished. Femorals are deep. There is no femoral bruits. Leg pulses are diminished. There is no pedal edema. There is no DVT or cellulitis. There is no calf tenderness. There is no sinus or clubbing. PACKAGE COLLECTOR: Patient is conscious awake alert oriented x3 with no focal deficits. PSYCHIATRIC: The patient judgment and insight are intact his affect is normal. 08/05/18 08/05/18 11:03 11:03 WBC 10.5 Hgb 13.9 Hct 42.7 MCV 96 Plt Count 140 L Sodium 136.6 L Potassium 4.0 Chloride 92 L Carbon Dioxide 37 H BUN 23 H Creatinine 0.63 Est GFR (Non-Af Amer) > 60 Glucose 174 H Calcium 9.3 Magnesium 1.8 IMPRESSION/RECOMMENDATION: 1. Paroxysmal Supraventricular Tachycardia: No recurrence on Cardizem. 2, ELEVATED TROPONIN: Most likely secondary to type II NM supply demand mismatch , due to the patient's respiratory failure, pneumonia, as per respiratory acidosis, and hypoxemia. But the patient has multiple risk factor for CAD, and does have an abnormal EKG with anterior T inversion. But his troponin I has trended down. 3. Abnormal EKG: Data recommend that the patient patient have an IV Cardiolite stress test. This can be done as an outpatient. This has been discussed with the patient patient's .. Will recheck the patient's blood pressure and heart rate tomorrow to see if we can maximize the patient's anti-CAD medications. If it remains stable will add Imdur or Nitropaste on nitro patch. 4. MORBID OBESITY. 5. HYPERTENSION: Blood pressure well controlled. In fact his systolic blood pressure is in the mid 90s. He would stop the patient's Lasix and restart lisinopril for now. 6. Heart FAILURE: At present compensated. 7. COPD: Continue antibiotics 8. Bibasilar pneumonia: Continue BiPAP and antibiotics. Will recheck chest x- ray in a.m. 9. Status post acute respiratory failure with hypoxemia and hypercapnia. 10. Short episode of NONSUSTAINED WIDE COMPLEX TACHYCARDIA, which is irregular. There is no recurrence of this. Note the patient medications have been reviewed. Discussed with other caregiving providers on the case. Continue present treatment. Medical decision making is of moderate complexity. Later as mentioned earlier would recommend that the patient have an IV Lexiscan Cardiolite stress test this can be done as an outpatient. This is due to EKG or EKG changes. Discussed with other caregiving providers on the case. Will follow with you. Thanking you.
[2018-08-06] MEDS: INSULIN LISPRO 100 UNIT/ML 3 ML VIAL SUBCUT PRN ×6 (00:06→22:33)
[2018-08-06] MEDS: IPRATROPIUM BROMIDE 0.02% NEB 0.5 MG/2.5 ML AMPUL NEB SCH ×3 (00:51→16:45)
[2018-08-06] MEDS: LEVALBUTEROL HCL NEB 1.25 MG/3 ML AMPUL NEB SCH ×3 (00:51→16:45)
[2018-08-06 04:09] LABS: HEMATOCRIT 40.9 % (37.9-51.0); HEMOGLOBIN 13.4 g/dL (13.5-17.0); MEAN CORPUSCULAR HEMOGLOBIN 31.5 pg (27.0-33.4); MEAN CORPUSCULAR HGB CONC 32.8 g/dL (32.0-36.0); MEAN CORPUSCULAR VOLUME 96 fl (80-97); PLATELET COUNT 157 10^3/uL (150-450); RED BLOOD COUNT 4.27 10^6/uL (4.35-5.55); RED CELL DISTRIBUTION WIDTH 14.7 % (11.5-14.0); WHITE BLOOD COUNT 10.5 10^3/uL (4.0-10.5)
[2018-08-06 04:20] LABS: ANION GAP 5 (5-19); BLOOD UREA NITROGEN 25 mg/dL (7-20); CALCIUM 9.1 mg/dL (8.4-10.2); CARBON DIOXIDE 37 mmol/L (22-30); CHLORIDE 94 mmol/L (98-107); GLUCOSE 182 mg/dL (75-110); POTASSIUM 4.5 mmol/L (3.6-5.0); SODIUM 135.6 mmol/L (137-145)
[2018-08-06] MEDS: LANSOPRAZOLE 15 MG TAB.RAP.DR PO SCH ×2 (05:07→16:22)
[2018-08-06 05:38] LABS: ARTERIAL BLOOD BASE EXCESS 9.4 mmol/L; ARTERIAL BLOOD H2CO3 1.72 mmol/L (1.05-1.35); ARTERIAL BLOOD O2 SATURATION 97.2 % (94-98); ARTERIAL BLOOD PCO2 57.1 mmHg (35-45); ARTERIAL BLOOD PH 7.42 (7.35-7.45); ARTERIAL BLOOD PO2 95.1 mmHg (80-100); ARTERIAL BLOOD TOTAL CO2 37.8 mmol/L (23-27)
[2018-08-06 05:39] LABS: ARTERIAL BLOOD FIO2 50%
--- NOTE | 2018-08-06 06:57 | RADIOLOGY REPORT (SQ) ---
EXAM DESCRIPTION: XR CHEST 1 VIEW COMPLETED DATE/TME: 08/06/2018 06:00 CLINICAL HISTORY: 63 years Male, resp fail COMPARISON: One day prior. NUMBER OF VIEWS/TECHNIQUE: 1/AP FINDINGS: Small moderate bilateral lower lobar opacity-effusion including left lower retrocardiac opacity, prominent cardiac silhouette, and mild osteoarthritis. No pneumothorax. Stable bony thorax. IMPRESSION: No significant change.
[2018-08-06] MEDS: DILTIAZEM HCL 120 MG CAP.SR.24H PO SCH ×2 (10:18→22:33)
[2018-08-06] MEDS: PREDNISONE 20 MG TABLET PO SCH (10:19)
[2018-08-06] MEDS: HEPARIN SOD (PORCINE) 5,000 UNIT/ML 1 ML SYRINGE SUBCUT SCH ×2 (10:19→22:33)
[2018-08-06] MEDS: FUROSEMIDE 20 MG TABLET PO SCH (10:19)
[2018-08-06] MEDS: LISINOPRIL 5 MG TABLET PO SCH ×2 (10:20→22:33)
--- NOTE | 2018-08-06 10:33 | PDOC PROGRESS REPORT ---
Subjective Progress Note for:: 08/06/18 Subjective:: stable on intermittent Bipap Reason For Visit: ACUTE HYPOXIC,HYPERCAPNIC RESPIRATORY FAILURE, Physical Exam Vital Signs: Temp Pulse Resp BP Pulse Ox 99.5 F 73 23 H 98/62 L 98 08/06/18 00:00 08/06/18 08:11 08/06/18 08:11 08/06/18 06:02 08/06/18 08:11 Intake & Output 08/05/18 08/06/18 08/07/18 06:59 06:59 06:59 Intake Total 1270 1220 Output Total 1120 1330 Balance 150 -110 Weight 146.5 kg 144.8 kg General appearance: PRESENT: no acute distress, cooperative, disheveled, morbidly obese Head exam: PRESENT: atraumatic, normocephalic Eye exam: PRESENT: conjunctiva pale, EOMI. ABSENT: nystagmus, scleral icterus Mouth exam: PRESENT: dry mucosa, neck supple, tongue midline Neck exam: ABSENT: carotid bruit, JVD, lymphadenopathy, thyromegaly, tracheal deviation, tracheostomy Respiratory exam: PRESENT: decreased breath sounds, prolonged expiratory phas, rhonchi, unlabored. ABSENT: rales, retraction, stridor Cardiovascular exam: PRESENT: RRR, +S1, +S2 Pulses: PRESENT: normal radial pulses GI/Abdominal exam: PRESENT: soft. ABSENT: tenderness Extremities exam: PRESENT: pedal edema. ABSENT: calf tenderness, clubbing, joint swelling Musculoskeletal exam: ABSENT: ambulatory, deformity, dislocation Neurological exam: PRESENT: alert, awake Psychiatric exam: PRESENT: normal mood Skin exam: PRESENT: dry, warm Results Laboratory Results: 08/06/18 03:52 08/06/18 03:52 08/05/18 08/05/18 08/06/18 11:03 11:03 03:52 WBC 10.5 10.5 RBC 4.44 4.27 L Hgb 13.9 13.4 L Hct 42.7 40.9 MCV 96 96 MCH 31.3 31.5 MCHC 32.6 32.8 RDW 14.6 H 14.7 H Plt Count 140 L 157 Carbonic Acid HCO3/H2CO3 Ratio ABG pH ABG pCO2 ABG pO2 ABG HCO3 ABG O2 Saturation ABG Base Excess FiO2 Sodium 136.6 L Potassium 4.0 Chloride 92 L Carbon Dioxide 37 H Anion Gap 8 BUN 23 H Creatinine 0.63 Est GFR ( Amer) > 60 Est GFR (Non-Af Amer) > 60 Glucose 174 H Calcium 9.3 Magnesium 1.8 08/06/18 08/06/18 08/06/18 03:52 03:52 05:10 WBC RBC Hgb Hct MCV MCH MCHC RDW Plt Count Carbonic Acid Cancelled 1.72 H HCO3/H2CO3 Ratio Cancelled 20:1 ABG pH Cancelled 7.42 ABG pCO2 Cancelled 57.1 H ABG pO2 Cancelled 95.1 ABG HCO3 Cancelled 36.0 H ABG O2 Saturation Cancelled 97.2 ABG Base Excess Cancelled 9.4 FiO2 Cancelled 50% Sodium 135.6 L Potassium 4.5 Chloride 94 L Carbon Dioxide 37 H Anion Gap 5 BUN 25 H Creatinine 0.60 Est GFR ( Amer) > 60 Est GFR (Non-Af Amer) > 60 Glucose 182 H Calcium 9.1 Magnesium 1.9 07/28/18 07/29/18 07/29/18 19:30 02:16 08:45 CK-MB (CK-2) 2.56 Troponin I 0.472 0.593 0.448 08/01/18 08/03/18 04:15 04:12 CK-MB (CK-2) Troponin I 0.098 0.050 Impressions: Head CT 07/28/18 14:04 IMPRESSION: Motion artifact. No acute changes. EVIDENCE OF ACUTE STROKE: NO. Chest/Abdomen CTA 07/28/18 15:09 IMPRESSION: Bibasilar consolidation in the right and left posterior costophrenic sulci, atelectasis versus pneumonia No CT angio evidence of acute pulmonary emboli or thoracic aortic dissection Chest X-Ray 08/06/18 06:00 IMPRESSION: No significant change. Assessment & Plan - Diagnosis (1) Acute and chronic respiratory failure, unspecified whether with hypoxia or hypercapnia Qualifiers: Respiratory failure complication: hypoxia and hypercapnia Qualified Code(s) : J96.21 - Acute and chronic respiratory failure with hypoxia; J96.22 - Acute and chronic respiratory failure with hypercapnia; J96.22 - Acute and chronic respiratory failure with hypercapnia; J96.22 - Acute and chronic respiratory failure with hypercapnia Is this a current diagnosis for this admission?: Yes Plan: BiPAP stable at this time (2) Hypertension Qualifiers: Hypertension type: essential hypertension Qualified Code(s): I10 - Essential (primary) hypertension Is this a current diagnosis for this admission?: Yes (3) NSTEMI (non-ST elevation myocardial infarction) Is this a current diagnosis for this admission?: Yes (4) DAWNA (obstructive sleep apnea) Is this a current diagnosis for this admission?: Yes Plan: Patient will need to wear BiPAP at all times when he is sleeping (5) Polycythemia Is this a current diagnosis for this admission?: Yes Plan: chronic hypoxemia - Time Total Critical Time (Minutes): 40
--- NOTE | 2018-08-06 15:37 | PDOC PROGRESS REPORT ---
Subjective Progress Note for:: 08/06/18 Subjective:: Mr. Bro is a 63-year-old male with a past medical history of COPD who was admitted with acute hypoxic and hypercapnic respiratory failure secondary to COPD exacerbation with possible obesity related hypoventilation. Patient was intubated on admission and was admitted to ICU. He was also initially noted to have elevated troponins which was deemed to be secondary to demand ischemia. Patient was successfully extubated on 07/31/16. No acute event overnight. No recurrence of transient SVTs. Blood pressures have remained stable. Patient has been asymptomatic. He denies any chest pain, dizziness, shortness of breath or palpitations. He is comfortable on BiPAP. No chills or fever. He continues to improve clinically. Yesterday afternoon, patient was further alternated on 6L of NC and BIPAP (4 hrs on/off) and he remained comfortable off BIPAP and maintained saturations in the 90s on 6L of nasal cannula. At home, patient's baseline sats is 92% on 4L of NC at rest and he does say he goes down to high 80s on 4L of O2 upon exertion at home. He will be downgraded to IMCU today. Reason For Visit: ACUTE HYPOXIC,HYPERCAPNIC RESPIRATORY FAILURE, Physical Exam Vital Signs: Temp Pulse Resp BP Pulse Ox 97.7 F 73 22 H 97/65 L 95 08/06/18 12:00 08/06/18 08:11 08/06/18 15:01 08/06/18 15:01 08/06/18 15:01 Intake & Output 08/05/18 08/06/18 08/07/18 06:59 06:59 06:59 Intake Total 1270 1220 600 Output Total 1120 1330 550 Balance 150 -110 50 Weight 322 lb 15.635 oz 319 lb 3.669 oz General appearance: PRESENT: no acute distress, obese Head exam: PRESENT: atraumatic, normocephalic Eye exam: PRESENT: conjunctiva pink, EOMI, PERRLA. ABSENT: scleral icterus Ear exam: PRESENT: normal external ear exam Mouth exam: PRESENT: moist, tongue midline Neck exam: ABSENT: carotid bruit, JVD, lymphadenopathy, thyromegaly Respiratory exam: PRESENT: clear to auscultation adam. ABSENT: rales, rhonchi, wheezes Cardiovascular exam: PRESENT: RRR. ABSENT: diastolic murmur, rubs, systolic murmur Pulses: PRESENT: normal dorsalis pedis pul GI/Abdominal exam: PRESENT: normal bowel sounds, soft. ABSENT: distended, guarding, mass, organolmegaly, rebound, tenderness Rectal exam: PRESENT: deferred Neurological exam: PRESENT: alert, awake, oriented to person, oriented to place , oriented to time, oriented to situation, CN II-XII grossly intact. ABSENT: motor sensory deficit Results Laboratory Results: 08/06/18 03:52 08/06/18 03:52 08/06/18 08/06/18 08/06/18 03:52 03:52 03:52 WBC 10.5 RBC 4.27 L Hgb 13.4 L Hct 40.9 MCV 96 MCH 31.5 MCHC 32.8 RDW 14.7 H Plt Count 157 Carbonic Acid Cancelled HCO3/H2CO3 Ratio Cancelled ABG pH Cancelled ABG pCO2 Cancelled ABG pO2 Cancelled ABG HCO3 Cancelled ABG O2 Saturation Cancelled ABG Base Excess Cancelled FiO2 Cancelled Sodium 135.6 L Potassium 4.5 Chloride 94 L Carbon Dioxide 37 H Anion Gap 5 BUN 25 H Creatinine 0.60 Est GFR ( Amer) > 60 Est GFR (Non-Af Amer) > 60 Glucose 182 H Calcium 9.1 Magnesium 1.9 08/06/18 05:10 WBC RBC Hgb Hct MCV MCH MCHC RDW Plt Count Carbonic Acid 1.72 H HCO3/H2CO3 Ratio 20:1 ABG pH 7.42 ABG pCO2 57.1 H ABG pO2 95.1 ABG HCO3 36.0 H ABG O2 Saturation 97.2 ABG Base Excess 9.4 FiO2 50% Sodium Potassium Chloride Carbon Dioxide Anion Gap BUN Creatinine Est GFR ( Amer) Est GFR (Non-Af Amer) Glucose Calcium Magnesium 07/28/18 07/29/18 07/29/18 19:30 02:16 08:45 CK-MB (CK-2) 2.56 Troponin I 0.472 0.593 0.448 08/01/18 08/03/18 04:15 04:12 CK-MB (CK-2) Troponin I 0.098 0.050 Impressions: Head CT 07/28/18 14:04 IMPRESSION: Motion artifact. No acute changes. EVIDENCE OF ACUTE STROKE: NO. Chest/Abdomen CTA 07/28/18 15:09 IMPRESSION: Bibasilar consolidation in the right and left posterior costophrenic sulci, atelectasis versus pneumonia No CT angio evidence of acute pulmonary emboli or thoracic aortic dissection Chest X-Ray 08/06/18 06:00 IMPRESSION: No significant change. Assessment & Plan - Diagnosis (1) Acute on chronic respiratory failure Qualifiers: Respiratory failure complication: hypoxia and hypercapnia Qualified Code(s) : J96.21 - Acute and chronic respiratory failure with hypoxia; J96.22 - Acute and chronic respiratory failure with hypercapnia; J96.22 - Acute and chronic respiratory failure with hypercapnia; J96.22 - Acute and chronic respiratory failure with hypercapnia Is this a current diagnosis for this admission?: Yes Plan: Patient did came in with acute hypoxic and hypercapnic respiratory failure likely secondary to COPD exacerbation with possible obesity related hypoventilation. Patient was successfully extubated on 07/31. He is currently comfortable and saturating well on BiPAP. Pulmonology is following and has recommended that patient wear his BiPAP when asleep. Discussed with Dr. Mohan who has recommended discharging patinet on BIPAP vs Trilogy. Yesterday, patient was alternated on 6L of NC and BIPAP (4 hrs on/off) and he remained comfortable off BIPAP and saturated in the 90s on 6L of nasal cannula. At home, patient's baseline sats is 92% on 4L of NC at rest and he does say he goes down to high 80s on 4L of O2 upon exertio at home. Continue alternating patient on NC/BIPAP 4 HRS ON/OFF today. He will continue to be on BIPAP at night/sleep. He will be downgraded to IMCU today. (2) COPD exacerbation Is this a current diagnosis for this admission?: Yes Plan: Discontinue levofloxacin tomorrow. Decrease prednisone to 20 mg daily today. (3) Paroxysmal SVT (supraventricular tachycardia) Is this a current diagnosis for this admission?: Yes Plan: No recurrence of SVT. Blood pressures remain stable. Patient is asymptomatic. He is tolerating PO cardizem well. Cardiology is following. (4) Elevated troponin I level Is this a current diagnosis for this admission?: Yes Plan: Patient was initially on heparin drip but this was discontinued after he developed some bleeding from the NG tube in the first 2 days of being on the ventilator. Cardiology following. Although his elevated troponin was deemed to be from possible demand ischemia from his recent COPD exacerbation, patient does have risk factors for CAD. Discussed with patient and family that further CAD work-up will be pursued in the future when he is more stable and his acute issues have resolved. Optimize medical therapy for CAD. (5) Diastolic CHF, chronic Is this a current diagnosis for this admission?: Yes Plan: Continue home dose of Lasix 20 mg daily PO. (6) Diabetes mellitus Qualifiers: Diabetes mellitus type: type 2 Is this a current diagnosis for this admission?: Yes Plan: This is a newly diagnosed DM presumed type 2. Hba1c is 7.8. Continue sliding scale for now. He will need to be prescribed a new antidiabetic medication upon discharge. - Time Time Spent with patient: 15-24 minutes
[2018-08-06] MEDS ORDERED: PROMETHAZINE HCL INJ 25 MG/1 ML VIAL ONE (16:41)
[2018-08-06] MEDS ORDERED: PROMETHAZINE HCL INJ 25 MG/1 ML VIAL IV PRN (16:42)
[2018-08-06] MEDS ORDERED: LEVALBUTEROL HCL NEB 0.63 MG/3 ML AMPUL NEB PRN (17:37)
[2018-08-06 20:35] LABS: CREATINE KINASE MB 0.36 ng/mL (<4.55)
[2018-08-06 20:36] LABS: TROPONIN I < 0.012 ng/mL
[2018-08-06] MEDS: CALCIUM CARBONATE 500 MG TAB.CHEW PO PRN (21:00)
--- NOTE | 2018-08-06 22:16 | Progress Note ---
Provider Note Provider Note: cardiology PROGRESS NOTES for 08/06/2018. SUBJECTIVE: The patient is off the BiPAP. He denies any chest pain or discomfort. There is no shortness of breath. There is no cough or wheezing. There is no PND orthopnea. There is no chest pain. There is no hemoptysis. There is no pleuritic chest pain. There is no leg edema. There is no PND orthopnea. There is no major ventricular or atrial ectopic activity except for occasional APCs. The patient is tolerating both the lisinopril and the Cardizem. There is no TIA CVA symptoms. PHYSICAL EXAMINATION: The patient is morbidly obese. In no acute distress. He is well-groomed. Selected Entries 08/06/18 08/06/18 08/06/18 08:00 08:02 08:11 Temperature 98.2 F Temperature Oral Source Pulse Rate 70 Respiratory 18 Rate Blood Pressure 101/73 Blood Pressure 82 Mean O2 Sat by Pulse 97 98 Oximetry Fraction of 50 Inspired Oxygen (FIO2) HEAD: Is atraumatic normocephalic. EYES: Pupils are equal round regular reactive to light accommodation. Ocular movements are normal. There is no conjunctival pallor. There is no scleral icterus. EARS nose and throat are negative. NECK: Supple. There is no JVD. Carotids are equal there is no bruit there is no lymphadenopathy. There is no carotid trachea central LUNGS: There is diminished air entry and prolonged expiration. There is no rhonchi rales or wheezing. There is no chest wall tenderness. HEART: S1-S2 is heard there is no S3 gallop there is no S4 gallop the systolic murmur the left sternal border and apex there is no rub. ABDOMEN: Is obese. Nontender there is no hepatosplenomegaly. Bowel sounds well heard. There is no tender areas of masses. EXTREMITIES: Femorals are diminished. Femorals are deep. There is no femoral bruits. Leg pulses are diminished. There is no pedal edema. There is no DVT or cellulitis. There is no calf tenderness. There is no sinus or clubbing. HAND FLESHER: Patient is conscious awake alert oriented x3 with no focal deficits. PSYCHIATRIC: The patient judgment and insight are intact his affect is normal. 08/06/18 08/06/18 03:52 03:52 WBC 10.5 Hgb 13.4 L Hct 40.9 Plt Count 157 Sodium 135.6 L Potassium 4.5 Chloride 94 L Carbon Dioxide 37 H BUN 25 H Est GFR (Non-Af Amer) > 60 Glucose 182 H Calcium 9.1 Magnesium 1.9 IMPRESSION/RECOMMENDATION: 1. Paroxysmal Supraventricular Tachycardia: No recurrence on Cardizem. 2, ELEVATED TROPONIN: Most likely secondary to type II MA supply demand mismatch , due to the patient's respiratory failure, pneumonia, as per respiratory acidosis, and hypoxemia. But the patient has multiple risk factor for CAD, and does have an abnormal EKG with anterior T inversion. But his troponin I has trended down. 3. Abnormal EKG: Data recommend that the patient patient have an IV Cardiolite stress test. This can be done as an outpatient. Review of the patient's morbid obesity, it may be better to have this done in a tertiary care center as an outpatient. This has been discussed with the patient patient. Will recheck the patient's blood pressure and heart rate tomorrow to see if we can maximize the patient's anti-CAD medications. If it remains stable will add Imdur or Nitropaste on nitro patch. 4. MORBID OBESITY. 5. HYPERTENSION: Blood pressure well controlled. In fact his systolic blood pressure is in the mid 90s. He would stop the patient's Lasix and restart lisinopril for now. 6. Heart FAILURE: At present compensated. 7. COPD: Continue antibiotics 8. Bibasilar pneumonia: Continue BiPAP and antibiotics. Will recheck chest x- ray in a.m. 9. Status post acute respiratory failure with hypoxemia and hypercapnia. 10. Short episode of NONSUSTAINED WIDE COMPLEX TACHYCARDIA, which is irregular. There is no recurrence of this. Note his medications have been reviewed. Discussed with other caregiving providers on the case. Medical decision making is now of moderate complexity. Note 40 minutes spent on this patient more than 50% time spent in direct patient care. We will follow with you.
[2018-08-06] MEDS: ATORVASTATIN CALCIUM 20 MG TABLET PO SCH (22:33)
[2018-08-07] MEDS: IPRATROPIUM BROMIDE 0.02% NEB 0.5 MG/2.5 ML AMPUL NEB SCH ×3 (00:38→16:24)
[2018-08-07] MEDS: LEVALBUTEROL HCL NEB 1.25 MG/3 ML AMPUL NEB SCH ×3 (00:38→16:25)
[2018-08-07] MEDS: INSULIN LISPRO 100 UNIT/ML 3 ML VIAL SUBCUT PRN ×3 (01:45→20:54)
[2018-08-07 02:23] LABS: CREATINE KINASE MB 0.25 ng/mL (<4.55); TROPONIN I 0.016 ng/mL
[2018-08-07] MEDS: LANSOPRAZOLE 15 MG TAB.RAP.DR PO SCH ×2 (05:19→17:18)
[2018-08-07] MEDS: CALCIUM CARBONATE 500 MG TAB.CHEW PO PRN (05:19)
[2018-08-07 08:10] LABS: HEMATOCRIT 42.7 % (37.9-51.0); HEMOGLOBIN 14.4 g/dL (13.5-17.0); MEAN CORPUSCULAR HEMOGLOBIN 31.9 pg (27.0-33.4); MEAN CORPUSCULAR HGB CONC 33.7 g/dL (32.0-36.0); MEAN CORPUSCULAR VOLUME 95 fl (80-97); PLATELET COUNT 153 10^3/uL (150-450); RED BLOOD COUNT 4.51 10^6/uL (4.35-5.55); RED CELL DISTRIBUTION WIDTH 14.5 % (11.5-14.0); WHITE BLOOD COUNT 10.5 10^3/uL (4.0-10.5)
[2018-08-07 08:12] LABS: ANION GAP 9 (5-19); BLOOD UREA NITROGEN 25 mg/dL (7-20); CALCIUM 9.4 mg/dL (8.4-10.2); CARBON DIOXIDE 35 mmol/L (22-30); CHLORIDE 94 mmol/L (98-107); GLUCOSE 194 mg/dL (75-110); POTASSIUM 4.4 mmol/L (3.6-5.0); SODIUM 138.1 mmol/L (137-145)
[2018-08-07 08:20] LABS: CREATINE KINASE < 20 U/L (55-170)
[2018-08-07 08:24] LABS: CREATINE KINASE MB 0.24 ng/mL (<4.55); TROPONIN I 0.013 ng/mL
[2018-08-07] MEDS ORDERED: PREDNISONE 10 MG TABLET PO SCH (10:00)
[2018-08-07] MEDS ORDERED: PREDNISONE 20 MG TABLET PO SCH (10:00)
[2018-08-07] MEDS: DILTIAZEM HCL 120 MG CAP.SR.24H PO SCH ×2 (11:00→21:52)
[2018-08-07] MEDS: HEPARIN SOD (PORCINE) 5,000 UNIT/ML 1 ML SYRINGE SUBCUT SCH ×2 (11:00→21:52)
[2018-08-07] MEDS: LISINOPRIL 5 MG TABLET PO SCH ×2 (11:00→21:52)
[2018-08-07] MEDS: FUROSEMIDE 20 MG TABLET PO SCH (11:00)
--- NOTE | 2018-08-07 15:01 | PDOC PROGRESS REPORT ---
Subjective Progress Note for:: 08/07/18 Subjective:: stable on intermittent Bipap Reason For Visit: ACUTE HYPOXIC,HYPERCAPNIC RESPIRATORY FAILURE, Physical Exam Vital Signs: Temp Pulse Resp BP Pulse Ox 98.4 F 89 24 H 116/76 91 L 08/07/18 12:00 08/07/18 12:00 08/07/18 13:00 08/07/18 12:02 08/07/18 13:00 Intake & Output 08/06/18 08/07/18 08/08/18 06:59 06:59 06:59 Intake Total 1220 1400 240 Output Total 1330 1950 Balance -110 -550 240 Weight 144.8 kg 143.3 kg General appearance: PRESENT: no acute distress, cooperative, disheveled, morbidly obese Head exam: PRESENT: atraumatic, normocephalic Eye exam: PRESENT: conjunctiva pale, EOMI. ABSENT: nystagmus, scleral icterus Mouth exam: PRESENT: dry mucosa, neck supple, tongue midline Neck exam: ABSENT: carotid bruit, JVD, lymphadenopathy, thyromegaly, tracheal deviation, tracheostomy Respiratory exam: PRESENT: decreased breath sounds, prolonged expiratory phas, rhonchi, unlabored. ABSENT: retraction, stridor Cardiovascular exam: PRESENT: RRR, +S1, +S2 Pulses: PRESENT: normal radial pulses GI/Abdominal exam: PRESENT: soft. ABSENT: tenderness Extremities exam: PRESENT: pedal edema. ABSENT: calf tenderness, clubbing, joint swelling Musculoskeletal exam: ABSENT: deformity, dislocation Neurological exam: PRESENT: alert, awake Psychiatric exam: PRESENT: normal mood Skin exam: PRESENT: dry, warm Results Laboratory Results: 08/07/18 07:50 08/07/18 07:50 08/07/18 08/07/18 07:50 07:50 WBC 10.5 RBC 4.51 Hgb 14.4 Hct 42.7 MCV 95 MCH 31.9 MCHC 33.7 RDW 14.5 H Plt Count 153 Sodium 138.1 Potassium 4.4 Chloride 94 L Carbon Dioxide 35 H Anion Gap 9 BUN 25 H Creatinine 0.56 Est GFR ( Amer) > 60 Est GFR (Non-Af Amer) > 60 Glucose 194 H Calcium 9.4 Magnesium 1.9 07/28/18 07/29/18 07/29/18 19:30 02:16 08:45 Creatine Kinase CK-MB (CK-2) 2.56 Troponin I 0.472 0.593 0.448 08/01/18 08/03/18 08/06/18 04:15 04:12 20:00 Creatine Kinase < 20 L CK-MB (CK-2) Troponin I 0.098 0.050 08/06/18 08/07/18 08/07/18 20:00 01:42 01:42 Creatine Kinase < 20 L CK-MB (CK-2) 0.36 0.25 Troponin I < 0.012 0.016 08/07/18 08/07/18 07:50 07:50 Creatine Kinase < 20 L CK-MB (CK-2) 0.24 Troponin I 0.013 Impressions: Head CT 07/28/18 14:04 IMPRESSION: Motion artifact. No acute changes. EVIDENCE OF ACUTE STROKE: NO. Chest/Abdomen CTA 07/28/18 15:09 IMPRESSION: Bibasilar consolidation in the right and left posterior costophrenic sulci, atelectasis versus pneumonia No CT angio evidence of acute pulmonary emboli or thoracic aortic dissection Chest X-Ray 08/06/18 06:00 IMPRESSION: No significant change. Assessment & Plan - Diagnosis (1) Acute and chronic respiratory failure, unspecified whether with hypoxia or hypercapnia Qualifiers: Qualified Code(s): J96.21 - Acute and chronic respiratory failure with hypoxia; J96.22 - Acute and chronic respiratory failure with hypercapnia; J96.22 - Acute and chronic respiratory failure with hypercapnia; J96.22 - Acute and chronic respiratory failure with hypercapnia Is this a current diagnosis for this admission?: Yes Plan: stable at this time (2) Hypertension Qualifiers: Qualified Code(s): I10 - Essential (primary) hypertension Is this a current diagnosis for this admission?: Yes (3) NSTEMI (non-ST elevation myocardial infarction) Is this a current diagnosis for this admission?: Yes Plan: as per cardiology (4) DAWNA (obstructive sleep apnea) Is this a current diagnosis for this admission?: Yes Plan: Patient will need to wear BiPAP at all times when he is sleeping (5) Polycythemia Is this a current diagnosis for this admission?: Yes Plan: chronic hypoxemia - Time Total Critical Time (Minutes): 40
--- NOTE | 2018-08-07 15:27 | PDOC PROGRESS REPORT ---
Subjective Progress Note for:: 08/07/18 Subjective:: 61-year-old male past medical history of COPD was admitted on 07/28/2018 for hypoxic and hypercapnic respiratory failure possibly related to obesity hypoventilation. Patient was intubated and transferred to ICU. Patient was successfully extubated on 07/31/2016. No acute events overnight, no SVTs, patient was complaining of mild nausea last night for which he received Phenergan which was helpful. Patient has been using BiPAP at night upon my encounter patient was on 6 L of oxygen with nasal cannula and saturating in low 90s. Patient denies any fever, shortness of breath, abdominal pain, chest pain, vomiting, diarrhea, constipation, or any urinary symptoms. Reason For Visit: ACUTE HYPOXIC,HYPERCAPNIC RESPIRATORY FAILURE, Physical Exam Vital Signs: Temp Pulse Resp BP Pulse Ox 98.4 F 89 24 H 116/76 91 L 08/07/18 12:00 08/07/18 12:00 08/07/18 13:00 08/07/18 12:02 08/07/18 13:00 Intake & Output 08/06/18 08/07/18 08/08/18 06:59 06:59 06:59 Intake Total 1220 1400 240 Output Total 1330 1950 Balance -110 -550 240 Weight 144.8 kg 143.3 kg General appearance: PRESENT: no acute distress, well-developed, well-nourished Head exam: PRESENT: atraumatic, normocephalic Eye exam: PRESENT: conjunctiva pink, EOMI, PERRLA. ABSENT: scleral icterus Ear exam: PRESENT: normal external ear exam Mouth exam: PRESENT: moist, tongue midline Neck exam: ABSENT: carotid bruit, JVD, lymphadenopathy, thyromegaly Respiratory exam: PRESENT: clear to auscultation adam, decreased breath sounds, prolonged expiratory phas. ABSENT: rales, rhonchi, wheezes Cardiovascular exam: PRESENT: RRR. ABSENT: diastolic murmur, rubs, systolic murmur Pulses: PRESENT: normal dorsalis pedis pul Vascular exam: PRESENT: normal capillary refill GI/Abdominal exam: PRESENT: normal bowel sounds, soft. ABSENT: distended, guarding, mass, organolmegaly, rebound, tenderness Rectal exam: PRESENT: deferred Extremities exam: PRESENT: full ROM. ABSENT: calf tenderness, clubbing, pedal edema Neurological exam: PRESENT: alert, awake, oriented to person, oriented to place , oriented to time, oriented to situation, CN II-XII grossly intact. ABSENT: motor sensory deficit Psychiatric exam: PRESENT: appropriate affect, normal mood. ABSENT: homicidal ideation, suicidal ideation Skin exam: PRESENT: dry, intact, warm. ABSENT: cyanosis, rash Results Laboratory Results: 08/07/18 07:50 08/07/18 07:50 08/07/18 08/07/18 07:50 07:50 WBC 10.5 RBC 4.51 Hgb 14.4 Hct 42.7 MCV 95 MCH 31.9 MCHC 33.7 RDW 14.5 H Plt Count 153 Sodium 138.1 Potassium 4.4 Chloride 94 L Carbon Dioxide 35 H Anion Gap 9 BUN 25 H Creatinine 0.56 Est GFR ( Amer) > 60 Est GFR (Non-Af Amer) > 60 Glucose 194 H Calcium 9.4 Magnesium 1.9 07/28/18 07/29/18 07/29/18 19:30 02:16 08:45 Creatine Kinase CK-MB (CK-2) 2.56 Troponin I 0.472 0.593 0.448 08/01/18 08/03/18 08/06/18 04:15 04:12 20:00 Creatine Kinase < 20 L CK-MB (CK-2) Troponin I 0.098 0.050 08/06/18 08/07/18 08/07/18 20:00 01:42 01:42 Creatine Kinase < 20 L CK-MB (CK-2) 0.36 0.25 Troponin I < 0.012 0.016 08/07/18 08/07/18 07:50 07:50 Creatine Kinase < 20 L CK-MB (CK-2) 0.24 Troponin I 0.013 Impressions: Head CT 07/28/18 14:04 IMPRESSION: Motion artifact. No acute changes. EVIDENCE OF ACUTE STROKE: NO. Chest/Abdomen CTA 07/28/18 15:09 IMPRESSION: Bibasilar consolidation in the right and left posterior costophrenic sulci, atelectasis versus pneumonia No CT angio evidence of acute pulmonary emboli or thoracic aortic dissection Chest X-Ray 08/06/18 06:00 IMPRESSION: No significant change. Assessment & Plan - Diagnosis (1) Acute on chronic respiratory failure Qualifiers: Respiratory failure complication: hypoxia and hypercapnia Qualified Code(s) : J96.21 - Acute and chronic respiratory failure with hypoxia; J96.22 - Acute and chronic respiratory failure with hypercapnia; J96.22 - Acute and chronic respiratory failure with hypercapnia; J96.22 - Acute and chronic respiratory failure with hypercapnia Is this a current diagnosis for this admission?: Yes Plan: Patient was admitted for acute hypoxic and hypercapnic respiratory failure likely due to underlying COPD exacerbation and obesity hypoventilation. Successfully extubated on 07/31/2018. He is on BiPAP while sleeping and 4-6 L of oxygen when awake. Dr. Thorpeeen following. Recommendation is to discharge patient on BiPAP versus trilogy. Note. Patient is on 4 L of oxygen at home (2) COPD exacerbation Is this a current diagnosis for this admission?: Yes Plan: Denise was Dcd on . Prednisone has been decreased to 20 mg daily. 2 nebs, BiPAP. (3) Diabetes mellitus Qualifiers: Diabetes mellitus type: type 2 Is this a current diagnosis for this admission?: Yes Plan: Newly diagnosed. A1c 7.8. Continue sliding scale insulin. Will discharge on metformin and ask patient to follow-up with PCP as outpatient. Diabetic education. Diet and lifestyle modification. (4) Diastolic CHF, chronic Is this a current diagnosis for this admission?: Yes Plan: Compensated. Continue Lasix guided by blood pressure and volume status. (5) Elevated troponin I level Is this a current diagnosis for this admission?: Yes Plan: Most likely secondary to type II NE (supply demand mismatch) due to respiratory failure, pneumonia and hypoxemia as per cardiology note. Patient also have an abnormal EKG as per cardiology note patient needs to do a stress test as outpatient. Patient has been consulted about his risk of CAD and the need for outpatient workup. Continue CAD medications. 2D echocardiography on 07/29/2018 was suboptimal,recommendation is for patient to have either a MUGA scan, CTA heart, cardiac MRI or CHRISTOPHER if indicated. Outpatient cardiology follow-up. Continue aspirin, statins, NEETA. (6) Paroxysmal SVT (supraventricular tachycardia) Is this a current diagnosis for this admission?: Yes Plan: No recurrence of SVT. Blood pressure has been remaining stable. Asymptomatic. Continue Cardizem p.o. Cardiology on board. (7) DAWNA (obstructive sleep apnea) Is this a current diagnosis for this admission?: Yes Plan: Patient to use BiPAP while sleeping. Pulmonology on board.
[2018-08-07] MEDS: ATORVASTATIN CALCIUM 20 MG TABLET PO SCH (21:56)
--- NOTE | 2018-08-07 23:49 | Progress Note ---
Provider Note Provider Note: Cardiology Progress note by Dr.Lakshmi Klein for 08/07/2018.
[2018-08-08] MEDS: LEVALBUTEROL HCL NEB 1.25 MG/3 ML AMPUL NEB SCH ×2 (00:35→09:10)
[2018-08-08] MEDS: IPRATROPIUM BROMIDE 0.02% NEB 0.5 MG/2.5 ML AMPUL NEB SCH ×2 (00:35→09:12)
[2018-08-08] MEDS: INSULIN LISPRO 100 UNIT/ML 3 ML VIAL SUBCUT PRN ×2 (00:45→06:21)
[2018-08-08 04:12] LABS: HEMATOCRIT 43.9 % (37.9-51.0); HEMOGLOBIN 14.2 g/dL (13.5-17.0); MEAN CORPUSCULAR HEMOGLOBIN 31.5 pg (27.0-33.4); MEAN CORPUSCULAR HGB CONC 32.4 g/dL (32.0-36.0); MEAN CORPUSCULAR VOLUME 97 fl (80-97); PLATELET COUNT 164 10^3/uL (150-450); RED BLOOD COUNT 4.51 10^6/uL (4.35-5.55); RED CELL DISTRIBUTION WIDTH 14.5 % (11.5-14.0)
[2018-08-08 04:35] LABS: ALANINE AMINOTRANSFERASE 58 U/L (21-72); ALBUMIN 3.3 g/dL (3.5-5.0); ALKALINE PHOSPHATASE 46 U/L (38-126); ANION GAP 6 (5-19); ASPARTATE AMINO TRANSFERASE 31 U/L (17-59); BILIRUBIN,DIRECT 0.4 mg/dL (0.0-0.4); BILIRUBIN,TOTAL 0.9 mg/dL (0.2-1.3); BLOOD UREA NITROGEN 22 mg/dL (7-20); CALCIUM 9.2 mg/dL (8.4-10.2); CARBON DIOXIDE 37 mmol/L (22-30); CHLORIDE 93 mmol/L (98-107); GLUCOSE 210 mg/dL (75-110); POTASSIUM 4.6 mmol/L (3.6-5.0); SODIUM 135.7 mmol/L (137-145); TOTAL PROTEIN 6.6 g/dL (6.3-8.2)
[2018-08-08] MEDS: LANSOPRAZOLE 15 MG TAB.RAP.DR PO SCH (06:07)
[2018-08-08] MEDS ORDERED: PROPOFOL 0 MG/0 ML INFUS..BTL IV ONE (09:45)
[2018-08-08] MEDS ORDERED: CALCIUM GLUCONATE 1000 MG/10 ML INJ IV ONE ×5 (09:58→12:02)
[2018-08-08] MEDS ORDERED: SODIUM BICARBONATE 8.4% INJ 50 MEQ/50 ML DISP.SYRIN ONE ×5 (10:04→12:14)
[2018-08-08] MEDS ORDERED: NOREPINEPHRINE BITARTRATE INJ/PF 4 MG/4 ML SDV IV ONE (10:12)
[2018-08-08] MEDS ORDERED: EPINEPHRINE INJ 1 MG/10 ML DISP.SYRIN ONE ×2 (10:20→12:14)
--- NOTE | 2018-08-08 10:43 | PDOC PROGRESS REPORT ---
Subjective Progress Note for:: 08/08/18 Subjective:: unresponsive Reason For Visit: ACUTE HYPOXIC,HYPERCAPNIC RESPIRATORY FAILURE, Physical Exam Vital Signs: Temp Pulse Resp BP Pulse Ox 98.3 F 75 24 H 113/78 93 08/07/18 23:58 08/08/18 09:14 08/08/18 09:14 08/08/18 06:03 08/08/18 09:14 Intake & Output 08/07/18 08/08/18 08/09/18 06:59 06:59 06:59 Intake Total 1400 1580 Output Total 1950 1850 Balance -550 -270 Weight 143.3 kg 142.7 kg Results Laboratory Results: 08/08/18 03:52 08/08/18 03:52 08/08/18 08/08/18 03:52 03:52 WBC 12.0 H RBC 4.51 Hgb 14.2 Hct 43.9 MCV 97 MCH 31.5 MCHC 32.4 RDW 14.5 H Plt Count 164 Sodium 135.7 L Potassium 4.6 Chloride 93 L Carbon Dioxide 37 H Anion Gap 6 BUN 22 H Creatinine 0.57 Est GFR ( Amer) > 60 Est GFR (Non-Af Amer) > 60 Glucose 210 H Calcium 9.2 Magnesium 1.9 Total Bilirubin 0.9 AST 31 ALT 58 Alkaline Phosphatase 46 Total Protein 6.6 Albumin 3.3 L 07/28/18 07/29/18 07/29/18 19:30 02:16 08:45 Creatine Kinase CK-MB (CK-2) 2.56 Troponin I 0.472 0.593 0.448 08/01/18 08/03/18 08/06/18 04:15 04:12 20:00 Creatine Kinase < 20 L CK-MB (CK-2) Troponin I 0.098 0.050 08/06/18 08/07/18 08/07/18 20:00 01:42 01:42 Creatine Kinase < 20 L CK-MB (CK-2) 0.36 0.25 Troponin I < 0.012 0.016 08/07/18 08/07/18 07:50 07:50 Creatine Kinase < 20 L CK-MB (CK-2) 0.24 Troponin I 0.013 Impressions: Head CT 07/28/18 14:04 IMPRESSION: Motion artifact. No acute changes. EVIDENCE OF ACUTE STROKE: NO. Chest/Abdomen CTA 07/28/18 15:09 IMPRESSION: Bibasilar consolidation in the right and left posterior costophrenic sulci, atelectasis versus pneumonia No CT angio evidence of acute pulmonary emboli or thoracic aortic dissection Chest X-Ray 08/06/18 06:00 IMPRESSION: No significant change. Assessment & Plan - Diagnosis (1) Acute and chronic respiratory failure, unspecified whether with hypoxia or hypercapnia Qualifiers: Respiratory failure complication: hypoxia and hypercapnia Qualified Code(s) : J96.21 - Acute and chronic respiratory failure with hypoxia; J96.22 - Acute and chronic respiratory failure with hypercapnia; J96.22 - Acute and chronic respiratory failure with hypercapnia; J96.22 - Acute and chronic respiratory failure with hypercapnia Is this a current diagnosis for this admission?: Yes (2) Hypertension Qualifiers: Hypertension type: essential hypertension Qualified Code(s): I10 - Essential (primary) hypertension Is this a current diagnosis for this admission?: Yes (3) NSTEMI (non-ST elevation myocardial infarction) Is this a current diagnosis for this admission?: Yes (4) DAWNA (obstructive sleep apnea) Is this a current diagnosis for this admission?: Yes (5) Polycythemia Is this a current diagnosis for this admission?: Yes (6) Cardiopulmonary arrest Is this a current diagnosis for this admission?: Yes Plan: 50 min per ACLS unable to stabelized patirent in/out PEA.(see code sheet) difficult to oxygenate as he had aspirated see CNRA. - Time Total Critical Time (Minutes): 90 - Plan Summary Plan Summary: Patient exspired code called 10:32am
--- NOTE | 2018-08-08 10:46 | PDOC PROGRESS REPORT ---
Subjective Progress Note for:: 08/08/18 Subjective:: awake alert Reason For Visit: ACUTE HYPOXIC,HYPERCAPNIC RESPIRATORY FAILURE, Physical Exam Vital Signs: Temp Pulse Resp BP Pulse Ox 98.3 F 83 31 H 113/78 92 08/07/18 23:58 08/08/18 00:35 08/08/18 06:03 08/08/18 06:03 08/08/18 06:03 Intake & Output 08/07/18 08/08/18 08/09/18 06:59 06:59 06:59 Intake Total 1400 1580 Output Total 1950 1850 Balance -550 -270 Weight 143.3 kg 142.7 kg General appearance: PRESENT: no acute distress, cooperative, disheveled, morbidly obese Head exam: PRESENT: atraumatic Eye exam: PRESENT: conjunctiva pale, EOMI, PERRLA. ABSENT: nystagmus, scleral icterus Mouth exam: PRESENT: moist, neck supple, tongue midline Teeth exam: PRESENT: poor dentation Neck exam: ABSENT: carotid bruit, JVD, lymphadenopathy, thyromegaly, tracheal deviation, tracheostomy Respiratory exam: PRESENT: decreased breath sounds, prolonged expiratory phas, rhonchi, symmetrical, unlabored. ABSENT: retraction, stridor, tachypnea Cardiovascular exam: PRESENT: RRR, +S1, +S2 Pulses: PRESENT: normal radial pulses GI/Abdominal exam: PRESENT: normal bowel sounds, soft. ABSENT: tenderness Extremities exam: PRESENT: pedal edema. ABSENT: calf tenderness, clubbing, joint swelling Musculoskeletal exam: ABSENT: ambulatory, deformity, dislocation Neurological exam: PRESENT: alert, awake Psychiatric exam: PRESENT: flat affect Skin exam: PRESENT: dry, warm Results Laboratory Results: 08/08/18 03:52 08/08/18 03:52 08/08/18 08/08/18 03:52 03:52 WBC 12.0 H RBC 4.51 Hgb 14.2 Hct 43.9 MCV 97 MCH 31.5 MCHC 32.4 RDW 14.5 H Plt Count 164 Sodium 135.7 L Potassium 4.6 Chloride 93 L Carbon Dioxide 37 H Anion Gap 6 BUN 22 H Creatinine 0.57 Est GFR ( Amer) > 60 Est GFR (Non-Af Amer) > 60 Glucose 210 H Calcium 9.2 Magnesium 1.9 Total Bilirubin 0.9 AST 31 ALT 58 Alkaline Phosphatase 46 Total Protein 6.6 Albumin 3.3 L 07/28/18 07/29/18 07/29/18 19:30 02:16 08:45 Creatine Kinase CK-MB (CK-2) 2.56 Troponin I 0.472 0.593 0.448 08/01/18 08/03/18 08/06/18 04:15 04:12 20:00 Creatine Kinase < 20 L CK-MB (CK-2) Troponin I 0.098 0.050 08/06/18 08/07/18 08/07/18 20:00 01:42 01:42 Creatine Kinase < 20 L CK-MB (CK-2) 0.36 0.25 Troponin I < 0.012 0.016 08/07/18 08/07/18 07:50 07:50 Creatine Kinase < 20 L CK-MB (CK-2) 0.24 Troponin I 0.013 Impressions: Head CT 07/28/18 14:04 IMPRESSION: Motion artifact. No acute changes. EVIDENCE OF ACUTE STROKE: NO. Chest/Abdomen CTA 07/28/18 15:09 IMPRESSION: Bibasilar consolidation in the right and left posterior costophrenic sulci, atelectasis versus pneumonia No CT angio evidence of acute pulmonary emboli or thoracic aortic dissection Chest X-Ray 08/06/18 06:00 IMPRESSION: No significant change. Assessment & Plan - Diagnosis (1) Acute and chronic respiratory failure, unspecified whether with hypoxia or hypercapnia Qualifiers: Respiratory failure complication: hypoxia and hypercapnia Qualified Code(s) : J96.21 - Acute and chronic respiratory failure with hypoxia; J96.22 - Acute and chronic respiratory failure with hypercapnia; J96.22 - Acute and chronic respiratory failure with hypercapnia; J96.22 - Acute and chronic respiratory failure with hypercapnia Is this a current diagnosis for this admission?: Yes Plan: improving (2) Hypertension Qualifiers: Hypertension type: essential hypertension Qualified Code(s): I10 - Essential (primary) hypertension Is this a current diagnosis for this admission?: Yes (3) DAWNA (obstructive sleep apnea) Is this a current diagnosis for this admission?: Yes Plan: Patient will need to wear BiPAP at all times when he is sleeping (4) Polycythemia Is this a current diagnosis for this admission?: Yes - Time Total Critical Time (Minutes): 40
[2018-08-08 11:44] VITALS: BP 178/153
--- NOTE | 2018-08-09 13:56 | Death Summary ---
Summary Date : 08/08/18 Time of :: 10:33 Autopsy: Yes Resuscitation Status: Full Code Primary Care Provider: Roxane toñito Consulting Provider: Dr Mohan and Dr. Klein - Final Diagnosis (1) Acute on chronic respiratory failure Is this a current diagnosis for this admission?: Yes (2) COPD exacerbation Is this a current diagnosis for this admission?: Yes (3) Diabetes mellitus Is this a current diagnosis for this admission?: Yes (4) Diastolic CHF, chronic Is this a current diagnosis for this admission?: Yes (5) Elevated troponin I level Is this a current diagnosis for this admission?: Yes (6) Paroxysmal SVT (supraventricular tachycardia) Is this a current diagnosis for this admission?: Yes (7) DAWNA (obstructive sleep apnea) Is this a current diagnosis for this admission?: Yes Hospital Course:: Mr. Bro is a 63-year-old male with a past medical history of COPD admitted with acute hypoxic and hypercapnic respiratory failure secondary to COPD exacerbation and obesity related hypoventilation. He was intubated on admission and was admitted to ICU. He was also initially noted to have elevated troponins which was deemed to be secondary to demand ischemia. During hospitalization he also was noted to have transient SVTs, cardiology was consulted patient was placed on Cardizem which improved SVTs. He also had an echo which was suboptimal. He was continued on his anti-CAD medications. Patient also had an abnormal EKG and cardiology was consulted. As he notes it was decided that patient could take an IV Cardiolite stress test as outpatient. As per cardiology note this was discussed with the patient and he was in agreement. He was successfully extubated on 07/31/16. and downgraded to IMCU. No recurrence of transient SVTs. Blood pressures were controlled. Patient was improving and on and off BiPAP and oxygen through nasal cannula. Patient was using BiPAP while asleep. He was improving and was downgraded to IMCU plan was to discharge patient on either BiPAP or trilogy. On 08/08/2018 around 9:50 patient became unresponsive while receiving physical therapy. I was called immediately and upon my encounter he seemed very cyanotic and in severe respiratory distress. Anesthesia was called for emergent intubation. Patient was successfully intubated however his oxygenation did not improve. Patient coded and ACLS was started. More than 50 minutes ACLS attempted unfortunately patient did not stabilize and was going in/ out of PEA. After 6 rounds of CPR patient's family was updated about continuation of CPR. Family suggested that we should not stop and continue CPR. More than 50 minutes of ACLS was attempted but unfortunately we were nota able to revive him. Cause of most likely cardiopulmonary arrest. Family opted for an autopsy.
== END 2018-08-08 10:34 | DRG 208 ==
LOC: ER 13:31 → EH 18:48 → ICU 22:12
PROVIDERS: ADMIT Emergency Medicine; ATTEND Emergency Medicine
PROC: 5A1945Z Respiratory Ventilation, 24-96 Consecutive Hours (ICD-10-PCS; principal; 2018-07-28)
PROC: 0BH17EZ Insertion of Endotracheal Airway into Trachea, Via Natural or Artificial Opening (ICD-10-PCS; 2018-07-28)
PROC: 0BH17EZ Insertion of Endotracheal Airway into Trachea, Via Natural or Artificial Opening (ICD-10-PCS; 2018-08-08)
PROC: 5A12012 Performance of Cardiac Output, Single, Manual (ICD-10-PCS; 2018-08-08)
DX: J96.22 Acute and chronic respiratory failure with hypercapnia (principal); I21.4 Non-ST elevation (NSTEMI) myocardial infarction; J18.9 Pneumonia, unspecified organism; J44.1 Chronic obstructive pulmonary disease with (acute) exacerbation; I50.32 Chronic diastolic (congestive) heart failure; Z68.41 Body mass index [BMI] 40.0-44.9, adult; I47.1 Supraventricular tachycardia; I46.9 Cardiac arrest, cause unspecified; J96.21 Acute and chronic respiratory failure with hypoxia; I11.0 Hypertensive heart disease with heart failure; R73.9 Hyperglycemia, unspecified; D75.1 Secondary polycythemia; E66.9 Obesity, unspecified; G47.33 Obstructive sleep apnea (adult) (pediatric); Z99.81 Dependence on supplemental oxygen; Z79.82 Long term (current) use of aspirin; Z79.51 Long term (current) use of inhaled steroids; Z79.899 Other long term (current) drug therapy
CPT/HCPCS: 36415; 51702; 70450; 71045; 71275; 80048; 80053; 81001; 82550; 82553; 82803; 82962; 83036; 83735; 83880; 84100; 84439; 84443; 84481; 84484; 85025; 85027; 85610; 85730; 87040; 87070; 87205; 92950; 93005; 93010; 93306; 94002; 94003; 94640; 94660; 94799; 96361; 96374; 99291; J0171; J0330; J0456; J0610; J0696; J1644; J1815; J1940; J1956; J2550; J2704; J2920; J2930; J3010; J3490; J7512; J7620; S0164